=== PATIENT | female | born 1995 | race Hispanic/Latino ===

== ENCOUNTER 2018-04-23 14:00 | Inpatient (IN) | payer OTHER ==
[2018-04-23] MEDS ORDERED: BUTORPHANOL 1 MG/ML INJ IV PRN (16:30)
[2018-04-23] MEDS ORDERED: CARBOPROST TROME 250 MCG/ML IM PRN (16:30)
[2018-04-23] MEDS ORDERED: PROMETHAZINE 25 MG/ML VIAL IM PRN ×2 (16:30)
[2018-04-23] MEDS ORDERED: MEPERIDINE HCL 25 MG/0.5 ML IV PRN (16:30)
[2018-04-23] MEDS ORDERED: METHYLERGONOVINE 0.2MG/ML AMP IM PRN (16:30)
[2018-04-23] MEDS ORDERED: Ringers Lactate 1,000 ML IV PRN (16:30)
[2018-04-23 16:48] VITALS: BMI 38.7
[2018-04-23 16:51] LABS: RPR Titer ND
[2018-04-23 16:56] LABS: Absolute Lymphocytes (CBC) 1.4 K/uL (0.7-4.9); Absolute Monocytes 0.6 K/uL (0.1-1.3); Absolute Neutrophil 9.7 K/uL (1.8-8.0); Basophils % 0.6 % (0-1.3); Eosinophils % 0.9 % (0-4.4); Hematocrit 32.6 % (36.0-45.0); Lymphocytes % 11.6 % (15.3-44.8); MCH 26.1 pg (27.0-35.0); MCV 82.1 fL (80-100); MPV 9.6 fL (7.6-11.3); Monocytes % 5.4 % (3.3-12.3); RBC Red Blood Cell Count 3.97 M/uL (3.86-4.86)
[2018-04-23 17:00] LABS: Urine Appearance CLEAR; Urine Bilirubin NEGATIVE (NEG); Urine Blood 2+ (NEG); Urine Color YELLOW; Urine Glucose NEGATIVE (NEG); Urine Protein NEGATIVE (NEG); Urine Specific Gravity 1.015 (1.005-1.030); Urine Urobilinogen 0.2 mg/dL (0.2-1.0); Urine pH 6.5 (5.0-7.0)
[2018-04-23] MEDS ORDERED: OXYTOCIN/LR 20 UNIT/1,000 ML BAG IV SCH ×2 (17:00→20:00)
[2018-04-23] MEDS ORDERED: Ringers Lactate 1,000 ML IV SCH (17:00)
[2018-04-23 17:16] LABS: Urine Microscopic Reflex ORDER UMIC
[2018-04-23 17:36] LABS: Urine Amorphous Sediment 3+ /HPF (NONE SEEN); Urine Bacteria <20 /HPF (<20); Urine Culture Reflex Order NOT NEEDED; Urine RBC <5 /HPF (NONE SEEN)
[2018-04-23] MEDS ORDERED: LIDOCAINE 2% 20 ML MDV IV ONE (19:00)
[2018-04-23] MEDS ORDERED: MEPERIDINE HCL 50 MG/ML AMP ONE (19:28)
[2018-04-23] MEDS ORDERED: DIPHENHYDRAMINE 25 MG TAB/CAP PO PRN (19:34)
[2018-04-23] MEDS ORDERED: Oxycodone HCl/Acetaminophen 1 TAB TAB PO PRN ×2 (19:34)
[2018-04-23] MEDS ORDERED: DOCUSATE NA/SENNA CONC 1 TAB PO PRN (19:34)
[2018-04-23] MEDS ORDERED: ACETAMINOPHEN 500 MG TAB PO PRN (19:34)
[2018-04-23] MEDS ORDERED: BISACODYL 10 MG RECTAL SUPP RECT PRN (19:34)
--- NOTE | 2018-04-23 19:53 | OP ---
Surgeon: Kendell Weston MD This is a 22-year-old, 4, para 3, 38 weeks 2 days, came in active labor. Beta strep negative . Rh positive, immune to Rubella. Used Lamaze breathing techniques. Had IV Stadol 1 or 2 times dur ing her labor. Progressed rapidly to complete. Light meconium staining noted with rupture of membra corwin at approximately 4 to 5 cm. Spontaneous vaginal delivery of an estimated 7.5 to 8 pound female. Apgars 9 and 9. No episiotomy. No laceration. Placenta retained for more than 25 minutes and mode rate bleeding noted, therefore patient given 25 mg of Demerol, and manual was performed. Re-explorat ion after the placenta was inspected, no further tissue. Uterus contracted down well with IV drip Pi tocin and 0.2 mg of Methergine IM. 1 g of Ancef ordered for prophylaxis. The patient tolerated all procedures well. Final Diagnoses: Term intrauterine at 38 weeks 2 days, vaginal delivery, retained placenta . Manual removal. NIGHAT/OLEG Voice ID: [id number] Report ID: [id number]
--- NOTE | 2018-04-23 19:53 | PN ---
The patient is now 7 cm, 90% effaced, 0 station. Rahul regularly. Should progress fairly rapi dly. NIGHAT/OLEG Voice ID: [id number] Report ID: [id number]
[2018-04-23] MEDS ORDERED: CEFAZOLIN/SWI 1gm 1 GM/10 ML SYR ONE (20:11)
[2018-04-23] MEDS ORDERED: METHYLERGONOVINE 0.2MG/ML AMP IM ONE (22:11)
[2018-04-23 22:44] LABS: RPR (Rapid Plasma Reagin) NON-REACT (NON-REACT)
--- NOTE | 2018-04-23 23:20 | PREOPHP ---
Date of Admission: 04/23/2018 A 22-year-old 4, para 3, 38 weeks 2 days, scheduled for induction on Saturday comes in today in labor, is now 4-1/2 to 5 cm, 90% effaced, vertex, -1 station. Rupture of membranes, very slight mec onium. FHTs normal, reactive at this point. Rahul every 2-3 minutes. Full labor talk given. Anticipate rather rapid labor once she gets stronger contractions. She is on light Pitocin augmenta tion at this point. The patient is Rh positive, immune to Rubella. Negative beta strep screen. NBC/MODL Voice ID: [id number]
[2018-04-24] MEDS: IBUPROFEN 200 MG TAB PO PRN ×2 (04:10→12:15)
[2018-04-24 22:45] VITALS: BP 125/73; TEMP 97.6
--- NOTE | 2018-04-25 01:31 | DS ---
Date of Discharge: 04/24/2018 Hospital Course: Caitlin Max is a 22-year-old, 4, para 3, 38 weeks 2 days, came in active l abor. Subsequently delivered an 8-pound 9-ounce male , Apgars 9 and 9. Light meconium with ru pture of membranes. No suspicion of aspiration. No episiotomy. No lacerations. Mild uterine hyper tonus after the uterus explored and placenta removed as it was retained, and there was more than norm al bleeding. Therefore, placenta was removed after about 15 to 20 minutes post delivery. The patien t was given 1 g of Ancef for prophylaxis. Estimated blood loss was 400 to 450 cc. afebri le, ambulating and voiding. Lochia is completely normal. She will be dismissed either later today o r tomorrow morning to report back to my office in 6 weeks for followup. To report any temperature el evation of 100 degrees or greater, severe pain, heavy bleeding, or any other type of abnormalities. Dismissed with tramadol for analgesia. The patient is mostly bottle-feeding at this point. She may like to take Motrin instead. She has had her Tdap immunization. Final Diagnoses: Intrauterine gestation, 38 weeks 2 days, spontaneous labor, vaginal delivery, retai natalia placenta, mild uterine hypotonus. NIGHAT/OLEG Voice ID: [id number] Report ID: [id number]
[2018-04-27 20:55] LABS: HBsAG Nonreactive (Nonreactive)
== END 2018-04-24 21:35 | disposition home or self-care (01) | DRG 774 ==
LOC: L&D 14:00 → 2ND-WC 16:15
PROVIDERS: ADMIT Specialist; ATTEND Specialist
PROC: 10E0XZZ Delivery of Products of Conception, External Approach (ICD-10-PCS; principal; 2018-04-23)
DX: O62.4 Hypertonic, incoordinate, and prolonged uterine contractions (principal); O72.2 Delayed and secondary postpartum hemorrhage; O77.0 Labor and delivery complicated by meconium in amniotic fluid; Z3A.38 38 weeks gestation of pregnancy; Z37.0 Single live birth
CPT/HCPCS: 36415; 81003; 81015; 85025; 86592; 86901; 87340; J0595; J0690; J2175; J2210; J2590

== ENCOUNTER 2018-08-09 19:47 | Emergency (ER) | payer OTHER ==
--- OUTSIDE RECORDS SUMMARY | 2018-08-09 19:49 | XMS REPORT ---
:1995 [facility] Address [address] [place] [address] Dr. Hernandez [address] [place] [id number] Care Team Providers Name Role Phone Unavailable Unavailable Unavailable Problems This patient has no known problems. Allergies, Adverse Reactions, Alerts This patient has no known allergies or adverse reactions. Medications This patient has no known medications.
--- NOTE | 2018-08-09 20:45 | ER ---
Nurse's Notes [facility] Name: Caitlin Mcgovern Age: 23 yrs Sex: Female : 1995 Arrival Date: 08/09/2018 Time: 19:50 Bed 25 Private MD: Diagnosis: Streptococcal pharyngitis Presentation: 08/09 19:54 Presenting complaint: Patient states: headache, flu like symptoms since 0100. my dad yaneli was dx with a virus yesterday, he was seen here. generalized body aches. Transition of care: patient was not received from another setting of care. Onset of symptoms was August 09, 2018 at 01:00. Risk Assessment: Do you want to hurt yourself or someone else? Patient reports no desire to harm self or others. Initial Sepsis Screen: Does the patient meet any 2 criteria? No. Patient's initial sepsis screen is negative. Does the patient have a suspected source of infection? No. Patient's initial sepsis screen is negative. Care prior to arrival: Medication(s) given: dayquill. 19:54 Method Of Arrival: Ambulatory 19:54 Acuity: PRERNA 4 Triage Assessment: 19:55 Headache History: The patient has had previous headaches and this one is similar to previous episodes. General: Appears in no apparent distress. comfortable, Behavior is calm, cooperative, appropriate for age. Pain: Complains of pain in head, neck, chest, abdomen, pelvis, right arm, left arm, right leg, left leg, back of head, back of neck, back of left arm, back of right arm, posterior chest, buttocks, back of left leg, back of right leg and back Pain currently is 8 out of 10 on a pain scale. Pain began 1 day ago. Also complains of no other associated symptoms. Neuro: No deficits noted. 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 - Social history:: Smoking status: Patient/guardian denies using tobacco, Patient/guardian denies using alcohol, street drugs. - Ebola Screening: : Patient negative for fever greater than or equal to 101.5 degrees Fahrenheit, and additional compatible Ebola Virus Disease symptoms Patient denies exposure to infectious person Patient denies travel to an Ebola-affected area in the 21 days before illness onset No symptoms or risks identified at this time. - Family history:: not pertinent. - Hospitalizations: : No recent hospitalization is reported. Screenin:05 Abuse screen: Denies threats or abuse. Nutritional screening: No deficits noted. bb Tuberculosis screening: No symptoms or risk factors identified. Fall Risk None identified. Assessment: 20:05 General: Appears in no apparent distress. well groomed, Behavior is calm, cooperative. bb Pain: Complains of pain in chest. Neuro: Level of Consciousness is awake, alert, obeys commands, Oriented to person, place, time, situation. Cardiovascular: Heart tones S1 S2 present Capillary refill < 3 seconds Patient's skin is warm and dry. Respiratory: Reports pain with respiration Respiratory effort is even, unlabored, Respiratory pattern is regular, Breath sounds are clear bilaterally. GI: No deficits noted. No signs and/or symptoms were reported involving the gastrointestinal system. Derm: Skin is pink, warm \T\ dry. Musculoskeletal: Circulation, motion, and sensation intact. Vital Signs: 19:55 BP 118 / 70; Pulse 66; Resp 14; Temp 97.8; Pulse Ox 100% ; Weight 84.37 kg; Height 4 ch ft. 11 in. (149.86 cm); Pain 8/10; 21:01 BP 113 / 76; Pulse 81; Resp 16; Pulse Ox 98% on R/A; la1 19:55 Body Mass Index 37.57 (84.37 kg, 149.86 cm) ED Course: 19:50 Patient arrived in ED. es 19:55 Triage completed. 19:55 Arm band placed on right wrist. Patient placed in an exam room, on a stretcher. 19:57 Donnell Garcia, MEENU is Primary Nurse. la1 19:57 Zaki Connolly MD is Attending Physician. rn 20:05 Patient has correct armband on for positive identification. Bed in low position. Call bb light in reach. Adult w/ patient. Pulse ox on. NIBP on. 21:01 No provider procedures requiring assistance completed. Patient did not have IV access la1 during this emergency room visit. Administered Medications: No medications were administered Outcome: 20:45 Discharge ordered by . rn 21:01 Discharged to home ambulatory. la1 21:01 Condition: stable 21:01 Discharge instructions given to patient, Instructed on discharge instructions, follow up and referral plans. medication usage, Demonstrated understanding of instructions, follow-up care, medications, Prescriptions given X 1. 21:02 Patient left the ED. la1 Signatures: Carlota Huffman RN RN Lisa Leyva Brenda RN RN Zaki Cruz MD MD rn Attema, Lee, RN RN laJones
--- NOTE | 2018-08-09 20:46 | EDPHYS ---
Physician Documentation [facility] Name: Caitlin Mcgovern Age: 23 yrs Sex: Female : 1995 Arrival Date: 08/09/2018 Time: 19:50 Bed 25 Private MD: ED Physician Zaki Connolly HPI: 08/09 20:10 This 23 yrs old Female presents to ER via Ambulatory with complaints of cough, rn congestion, muscle aches. 20:19 The patient or guardian reports cough, flu symptoms, low-grade fever, myalgias. Onset: rn The symptoms/episode began/occurred 2 hour(s) ago. Severity of symptoms: At their worst the symptoms were mild, in the emergency department the symptoms are unchanged. Modifying factors: The symptoms are alleviated by nothing, the symptoms are aggravated by nothing. The patient has not experienced similar symptoms in the past. The patient has not recently seen a physician. Reports several family members with similar symptoms, + subjective fever, chills, cough, congestion, reports has "bronchitis" about once a year. NO hx of asthma, non-smoker. . 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 - Social history:: Smoking status: Patient/guardian denies using tobacco, Patient/guardian denies using alcohol, street drugs. - Ebola Screening: : Patient negative for fever greater than or equal to 101.5 degrees Fahrenheit, and additional compatible Ebola Virus Disease symptoms Patient denies exposure to infectious person Patient denies travel to an Ebola-affected area in the 21 days before illness onset No symptoms or risks identified at this time. - Family history:: not pertinent. - Hospitalizations: : No recent hospitalization is reported. ROS: 20:19 Constitutional: + fever and chills Eyes: Negative for injury, pain, redness, and sample patternmaker, ENT: + nasal congestion and sore throat Cardiovascular: Negative for chest pain, palpitations, and edema, Respiratory: + cough, negative for sob Abdomen/GI: Negative for abdominal pain, nausea, vomiting, diarrhea, and constipation, MS/Extremity: Negative for injury and deformity, Skin: Negative for injury, rash, and discoloration, Neuro: + headache, no weakness Exam: 20:19 Constitutional: This is a well developed, well nourished patient who is awake, alert, rn and in no acute distress. Head/Face: Normocephalic, atraumatic. Eyes: Pupils equal round and reactive to light, extra-ocular motions intact. Lids and lashes normal. Conjunctiva and sclera are non-icteric and not injected. Cornea within normal limits. Periorbital areas with no swelling, redness, or edema. ENT: mild pharyngeal erythema, no stridor, no exudate, no lesions Cardiovascular: Regular rate and rhythm with a normal S1 and S2. No gallops, murmurs, or rubs. No pulse deficits. Respiratory: Equal bilateral breath sounds, no wheezing, no retractions, speaking full sentences Skin: Warm, dry with normal turgor. Normal color with no rashes, no lesions, and no evidence of cellulitis. MS/ Extremity: Pulses equal, no cyanosis. Neurovascular intact. Full, normal range of motion. Equal circumference. Neuro: Awake and alert, GCS 15, oriented to person, place, time, and situation. Cranial nerves II-XII grossly intact. Motor strength 5/5 in all extremities. Sensory grossly intact. Cerebellar exam normal. Normal gait. Vital Signs: 19:55 BP 118 / 70; Pulse 66; Resp 14; Temp 97.8; Pulse Ox 100% ; Weight 84.37 kg; Height 4 ch ft. 11 in. (149.86 cm); Pain 8/10; 21:01 BP 113 / 76; Pulse 81; Resp 16; Pulse Ox 98% on R/A; la1 19:55 Body Mass Index 37.57 (84.37 kg, 149.86 cm) ch MDM: 19:57 Patient medically screened. rn 20:44 Differential Diagnosis: Influenza Upper Respiratory Infection Pharyngitis Viral rn Syndrome. Data reviewed: vital signs, nurses notes, lab test result(s), and as a result, I will discharge patient. Counseling: I had a detailed discussion with the patient and/or guardian regarding: the historical points, exam findings, and any diagnostic results supporting the discharge/admit diagnosis, lab results, the need for outpatient follow up, to return to the emergency department if symptoms worsen or persist or if there are any questions or concerns that arise at home. Special discussion: I discussed with the patient/guardian in detail that at this point there is no indication for admission to the hospital. It is understood, however, that if the symptoms persist or worsen the patient needs to return immediately for re-evaluation. 20:45 ED course: Pt states allergic to penicillin. Zithromax prescribed due to unknown rn severity f allergy. . 08/09 20:06 Order name: Flu; Complete Time: 20:42 ch 08/09 20:06 Order name: Strep; Complete Time: 20:36 Administered Medications: No medications were administered Disposition: 08/09/18 20:45 Discharged to Home. Impression: Streptococcal pharyngitis. - Condition is Stable. - Discharge Instructions: Pharyngitis, Strep Throat. - Prescriptions for Zithromax Z- Nahum 250 mg Oral Tablet - take 1 tablet by ORAL route as directed for 5 days Day 1 - take two (2) tablets one time. Day 2, 3, 4 , 5 take one (1) tablet once daily.; 6 tablet. - Medication Reconciliation Form, Thank You Letter, Antibiotic Education, Prescription Opioid Use form. - Follow up: Private Physician; When: As needed; Reason: Recheck today's complaints, Re-evaluation by your physician. - Problem is new. - Symptoms have improved. Signatures: Dispatcher [employer] EDMS Carlota Huffman RN RN Zaki Connolly MD MD rn Attema, Lee, RN RN la1 Corrections: (The following items were deleted from the chart) 21:02 20:45 08/09/2018 20:45 Discharged to Home. Impression: Streptococcal pharyngitis. la1 Condition is Stable. Forms are Medication Reconciliation Form, Thank You Letter, Antibiotic Education, Prescription Opioid Use. Follow up: Private Physician; When: As needed; Reason: Recheck today's complaints, Re-evaluation by your physician. Problem is new. Symptoms have improved. rn
[2018-08-09 21:16] VITALS: TEMP 97.8
[2018-08-09 21:18] VITALS: BP 113/76; O2SAT 98
== END 2018-08-09 21:02 | disposition home or self-care (01) ==
LOC: ER 19:47
DX: J02.0 Streptococcal pharyngitis (principal); Z88.0 Allergy status to penicillin
CPT/HCPCS: 87081; 87804; 99283

== ENCOUNTER 2018-09-25 21:12 | Emergency (ER) | payer OTHER ==
--- OUTSIDE RECORDS SUMMARY | 2018-09-25 21:14 | XMS REPORT ---
:1995 [facility] Address [address] [place] [address] Dr. Hernandez [address] [place] [id number] Care Team Providers Name Role Phone Unavailable Unavailable Unavailable Problems This patient has no known problems. Allergies, Adverse Reactions, Alerts This patient has no known allergies or adverse reactions. Medications This patient has no known medications.
[2018-09-25] MEDS ORDERED: IBUPROFEN 400 MG TAB ONE (22:53)
[2018-09-25] MEDS ORDERED: ACETAMINOPHEN 500 MG TAB ONE (22:54)
[2018-09-25 23:47] LABS: Urine Blood TRACE (NEG); Urine Glucose NEGATIVE (NEG); Urine Protein NEGATIVE (NEG); Urine Specific Gravity >1.030 (1.005-1.030); Urine pH 6.5 (5.0-7.0)
--- NOTE | 2018-09-26 00:26 | ER ---
Nurse's Notes [facility] Name: Caitlin Mcgovern Age: 23 yrs Sex: Female : 1995 Arrival Date: 09/25/2018 Time: 21:19 Bed 15 Private MD: Diagnosis: Viral syndrome Presentation: 09/25 21:36 Presenting complaint: Patient states: "Its been a few days that I've been feeling body aj1 aches all over, then I noticed I was starting to get hot and I have a headache that comes and goes and when I take a breath it feels like my chest hurts" Patient reports that she took Tylenol at 1330 today. Transition of care: patient was not received from another setting of care. Onset of symptoms was August 2018. Risk Assessment: Do you want to hurt yourself or someone else? Patient reports no desire to harm self or others. Initial Sepsis Screen: Does the patient meet any 2 criteria?. Initial Sepsis Screen: Does the patient have a suspected source of infection? Yes: Productive cough/pneumonia. Care prior to arrival: None. 21:36 Method Of Arrival: Ambulatory [facility] 21:36 Acuity: PRERNA 4 aj1 Triage Assessment: 21:38 Headache History: Denies prior headaches. General: Appears in no apparent distress. aj1 comfortable, Behavior is calm, cooperative, appropriate for age. Pain: Pain currently is 6 out of 10 on a pain scale. Pain began 2-3 days ago. Also complains of fatigue. Neuro: Level of Consciousness is awake, alert, obeys commands. Cardiovascular: Patient's skin is warm and dry. Respiratory: Airway is patent Respiratory effort is even, unlabored, Respiratory pattern is regular, symmetrical. 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 - Social history:: Smoking status: Patient/guardian denies using tobacco. - Ebola Screening: : Patient denies travel to an Ebola-affected area in the 21 days before illness onset. - Family history:: not pertinent. - Hospitalizations: : No recent hospitalization is reported. Screenin:51 Abuse screen: Denies threats or abuse. Denies injuries from another. Nutritional cc3 screening: No deficits noted. Tuberculosis screening: No symptoms or risk factors identified. Fall Risk Ambulatory Aid- None/Bed Rest/Nurse Assist (0 pts). Gait- Normal/Bed Rest/Wheelchair (0 pts) Mental Status- Oriented to own ability (0 pts). Assessment: 21:51 General: see triage assessment. cc3 22:18 Reassessment: Patient appears in no apparent distress at this time. Patient and/or cc3 family updated on plan of care and expected duration. Pain level reassessed. Patient is alert, oriented x 3, equal unlabored respirations, skin warm/dry/pink. 23:20 Reassessment: Patient appears in no apparent distress at this time. Patient and/or cc3 family updated on plan of care and expected duration. Pain level reassessed. Patient is alert, oriented x 3, equal unlabored respirations, skin warm/dry/pink. 09/26 00:45 Reassessment: Patient appears in no apparent distress at this time. Patient and/or cc3 family updated on plan of care and expected duration. Pain level reassessed. Patient is alert, oriented x 3, equal unlabored respirations, skin warm/dry/pink. Dr. Zhang discharged the patient home with prescription given. No IV cannula in situ. Patient left ER vitally stable and ambulatory with her family. Vital Signs: 09/25 21:38 BP 130 / 57; Pulse 84; Resp 18; Temp 100(O); Pulse Ox 99% on R/A; Weight 78.93 kg (R); aj1 Height 4 ft. 11 in. (149.86 cm) (R); Pain 6/10; 22:18 BP 112 / 67; Pulse 78; Resp 17 S; Pulse Ox 100% on R/A; cc3 23:20 BP 109 / 70; Pulse 76; Resp 17 S; Temp 98.2(O); Pulse Ox 100% on R/A; cc3 09/26 00:20 BP 113 / 63; Pulse 77; Resp 17 S; Pulse Ox 100% on R/A; cc3 09/25 21:38 Body Mass Index 35.14 (78.93 kg, 149.86 cm) [facility] ED Course: 09/25 21:19 Patient arrived in ED. es 21:38 Triage completed. aj1 21:38 Arm band placed on Patient placed in an exam room. aj1 21:51 Samreen Koch is Primary Nurse. cc3 21:51 Patient has correct armband on for positive identification. Bed in low position. Call cc3 light in reach. Side rails up X 1. Pulse ox on. NIBP on. 21:54 Shreyas Zhang MD is Attending Physician. nj 22:51 Chest Pa And Lat (2 Views) XRAY In Process Unspecified. EDMS 09/26 00:45 No provider procedures requiring assistance completed. Patient did not have IV access cc3 during this emergency room visit. Administered Medications: 09/25 22:55 Drug: Tylenol 1000 mg Route: PO; cc3 23:20 Follow up: Response: No adverse reaction; Temperature is decreased cc3 22:55 Drug: Motrin 400 mg Route: PO; cc3 23:20 Follow up: Response: No adverse reaction; Temperature is decreased cc3 Outcome: 09/26 00:25 Discharge ordered by . nj 00:45 Discharged to home ambulatory, with family. cc3 00:45 Condition: stable 00:45 Discharge instructions given to patient, Instructed on discharge instructions, follow up and referral plans. medication usage, Demonstrated understanding of instructions, follow-up care, medications, Prescriptions given X 1. 00:48 Patient left the ED. cc3 Signatures: Dispatcher [employer] EDWY Aleah Duval, RN RN aj1 Lisa Monte Shreyas Zhang MD MD wa Cordel, Charlene cc3 Corrections: (The following items were deleted from the chart) 09/25 23:43 23:20 BP 109 / 70; Pulse 76bpm; Resp 17bpm; Spontaneous; Pulse Ox 100% RA; cc3 cc3
--- NOTE | 2018-09-26 00:27 | EDPHYS ---
Physician Documentation [facility] Name: Caitlin Mcgovern Age: 23 yrs Sex: Female : 1995 Arrival Date: 09/25/2018 Time: 21:19 Bed 15 Private MD: ED Physician Shreyas Zhang HPI: 09/25 23:05 This 23 yrs old Female presents to ER via Ambulatory with complaints of wa Headache, Body ache, Chest Pain. 23:05 The patient complains of pain to the diffuse. The patient describes the headache as wa aching. Onset: The symptoms/episode began/occurred 3 day(s) ago. Associated signs and symptoms: Pertinent positives: fever, sore throat. body aches. cough and congestion, Pertinent negatives: dizziness, neck stiffness, vomiting. Severity of symptoms: At its worst the pain was moderate, in the emergency department the pain is unchanged. Headache History: Denies prior headaches. The symptoms are alleviated by nothing. the symptoms are aggravated by nothing. The patient has not experienced similar symptoms in the past. The patient has not recently seen a physician. 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 - Social history:: Smoking status: Patient/guardian denies using tobacco. - Ebola Screening: : Patient denies travel to an Ebola-affected area in the 21 days before illness onset. - Family history:: not pertinent. - Hospitalizations: : No recent hospitalization is reported. ROS: 23:07 Eyes: Negative for injury, pain, redness, and discharge, Neck: Negative for injury, wa pain, and swelling, Abdomen/GI: Negative for abdominal pain, nausea, vomiting, diarrhea, and constipation, Back: Negative for injury and pain, : Negative for injury, bleeding, discharge, and swelling, MS/Extremity: Negative for injury and deformity, Skin: Negative for injury, rash, and discoloration, Psych: Negative for depression, anxiety, suicide ideation, homicidal ideation, and hallucinations. 23:07 ENT: Positive for sinus congestion, sore throat, Negative for ear pain. 23:07 Cardiovascular: Positive for chest pain. 23:07 Respiratory: Positive for cough, with no reported sputum. 23:07 Neuro: Positive for headache. 23:07 All other systems are negative. Exam: 23:08 Head/Face: Normocephalic, atraumatic. Eyes: Pupils equal round and reactive to light, wa extra-ocular motions intact. Lids and lashes normal. Conjunctiva and sclera are non-icteric and not injected. Cornea within normal limits. Periorbital areas with no swelling, redness, or edema. Neck: Trachea midline, no thyromegaly or masses palpated, and no cervical lymphadenopathy. Supple, full range of motion without nuchal rigidity, or vertebral point tenderness. No Meningismus. Chest/axilla: Normal chest wall appearance and motion. Nontender with no deformity. No lesions are appreciated. Abdomen/GI: Soft, non-tender, with normal bowel sounds. No distension or tympany. No guarding or rebound. No evidence of tenderness throughout. Back: No spinal tenderness. No costovertebral tenderness. Full range of motion. Skin: Warm, dry with normal turgor. Normal color with no rashes, no lesions, and no evidence of cellulitis. MS/ Extremity: Pulses equal, no cyanosis. Neurovascular intact. Full, normal range of motion. 23:08 Constitutional: The patient appears in no acute distress, alert. 23:08 Cardiovascular: Rate: normal, Rhythm: regular, Pulses: no pulse deficits are appreciated, Heart sounds: normal, Edema: is not appreciated. 23:08 Respiratory: the patient does not display signs of respiratory distress, Respirations: normal, Breath sounds: are clear throughout, Respiratory rate: normal 23:08 Neuro: Orientation: is normal, Mentation: is normal, Cranial nerves: grossly normal. Vital Signs: 21:38 BP 130 / 57; Pulse 84; Resp 18; Temp 100(O); Pulse Ox 99% on R/A; Weight 78.93 kg (R); aj1 Height 4 ft. 11 in. (149.86 cm) (R); Pain 6/10; 22:18 BP 112 / 67; Pulse 78; Resp 17 S; Pulse Ox 100% on R/A; cc3 23:20 BP 109 / 70; Pulse 76; Resp 17 S; Temp 98.2(O); Pulse Ox 100% on R/A; cc3 09/26 00:20 BP 113 / 63; Pulse 77; Resp 17 S; Pulse Ox 100% on R/A; cc3 09/25 21:38 Body Mass Index 35.14 (78.93 kg, 149.86 cm) aj1 MDM: 09/25 21:54 Patient medically screened. nc 23:09 Differential diagnosis: viral syndrome? r/o pna. nc 09/26 00:22 Data reviewed: vital signs, nurses notes, lab test result(s), EKG, radiologic studies. nc Test interpretation: by ED physician or midlevel provider: EKG: HR 72. interp by me. nml axis. no dysrhythmic changes. 00:23 Test interpretation: by ED physician or midlevel provider: flu and strep screen nc negative. UA normal. Response to treatment: the patient's symptoms have markedly improved after treatment. 09/25 22:36 Order name: Flu; Complete Time: 00:21 nc 09/25 22:36 Order name: Strep; Complete Time: 00:21 nc 09/25 23:14 Order name: Urine Microscopic Only nc 09/25 23:42 Order name: Urine Dipstick--Ancillary (enter results); Complete [facility]: [facility] 09/25 23:42 Order name: Urine --Ancillary (enter results); Complete Time: 00:21 [facility] 09/26 00:12 Order name: Throat Culture [facility] 09/25 22:36 Order name: Chest Pa And Lat (2 Views) XRAY nc 09/25 22:41 Order name: EKG - Nurse/Tech; Complete Time: 23:14 nc 09/25 23:14 Order name: Urine Dipstick-Ancillary (obtain specimen); Complete Time: 23:42 nc 09/25 23:14 Order name: Urine Test (obtain specimen); Complete Time: 23:42 nc Administered Medications: 09/25 22:55 Drug: Tylenol 1000 mg Route: PO; cc3 23:20 Follow up: Response: No adverse reaction; Temperature is decreased cc3 22:55 Drug: Motrin 400 mg Route: PO; cc3 23:20 Follow up: Response: No adverse reaction; Temperature is decreased cc3 Disposition: 09/26/18 00:25 Discharged to Home. Impression: Viral syndrome. - Condition is Stable. - Discharge Instructions: Viral Respiratory Infection, [id number]. - Prescriptions for Albuterol Sulfate 90 mcg/actuation - inhale 1-2 puff by INHALATION route every 4-6 hours; 1 Inhaler. - Medication Reconciliation Form, Thank You Letter, Antibiotic Education, Prescription Opioid Use form. - Follow up: Private Physician; When: 2 - 3 days; Reason: Recheck today's complaints. - Problem is new. - Symptoms have improved. - Notes: take tylenol and motrin as needed for pain and or fever. you may use inhaler as needed for cough Signatures: Dispatcher [employer] EDMS Aleah Duval RN RN aj1 Shreyas Zhang MD MD wa Cordel, Charlene cc3 Corrections: (The following items were deleted from the chart) 23:15 23:15 Urine Dipstick-Ancillary ordered. cc3 cc3 09/26 00:48 00:25 09/26/2018 00:25 Discharged to Home. Impression: Viral syndrome. Condition is cc3 Stable. Forms are Medication Reconciliation Form, Thank You Letter, Antibiotic Education, Prescription Opioid Use. Follow up: Private Physician; When: 2 - 3 days; Reason: Recheck today's complaints. Problem is new. Symptoms have improved. eloisa
[2018-09-26 00:46] LABS: Urine Bacteria <20 /HPF (<20); Urine RBC NONE SEEN /HPF (NONE SEEN)
[2018-09-26 00:47] LABS: Urine Culture Reflex Order NOT NEEDED
[2018-09-26 00:59] VITALS: O2SAT 100
[2018-09-26 01:00] VITALS: BP 109/70; TEMP 98.2
--- NOTE | 2018-09-26 07:48 | RAD REPORT ---
EXAM DESCRIPTION: RAD - Chest Pa And Lat (2 Views) - 09/25/2018 10:51 pm CLINICAL HISTORY: Chest pain, fever, body aches COMPARISON: None. TECHNIQUE: PA and lateral views of the chest were obtained. FINDINGS: The lungs are clear. Heart size is normal and central vasculature is within normal limit s. No pleural effusion or pneumothorax seen. No acute bony finding noted. No aortic abnormality. IMPRESSION: No acute cardiopulmonary process.
--- NOTE | 2018-09-26 22:30 | EKG ---
Test Date: 2018-09-25 Test Time: 23:04:06 Foundation Drill Operator Helper: [place] MEASUREMENT RESULTS: Intervals: Rate: 68 DC: 132 QRSD: 82 QT: 400 QTc: 425 [place]: P: 26 DC: 132 QRS: 61 T: 38 INTERPRETIVE STATEMENTS: Normal sinus rhythm Normal ECG No previous ECG available for comparison Electronically Signed On 09-26-18 22:28:13 OIL LEASE OPERATOR by Perry England
== END 2018-09-26 00:48 | disposition home or self-care (01) ==
LOC: ER 21:12
DX: B34.9 Viral infection, unspecified (principal); Z88.0 Allergy status to penicillin
CPT/HCPCS: 71046; 81003; 81015; 81025; 87070; 87081; 87804; 93005; 99284

== ENCOUNTER 2018-10-23 18:52 | Emergency (ER) | payer OTHER ==
--- OUTSIDE RECORDS SUMMARY | 2018-10-23 18:55 | XMS REPORT ---
:1995 [facility] [address] [place] [address] Dr. Hernandez [address] [place] [id number] Care Team Providers Name Role Phone Unavailable Unavailable Unavailable Problems This patient has no known problems. Allergies, Adverse Reactions, Alerts This patient has no known allergies or adverse reactions. Medications This patient has no known medications.
[2018-10-23] MEDS ORDERED: KETOROLAC 30 MG/ML INJ ONE (21:10)
[2018-10-23] MEDS ORDERED: DIPHENHYDRAMINE 50 MG/ML VIAL ONE (21:10)
[2018-10-23] MEDS ORDERED: METOCLOPRAMIDE 10 MG/2mL INJ ONE (21:10)
--- NOTE | 2018-10-23 21:35 | EDPHYS ---
Physician Documentation [facility] Name: Caitlin Mcgovern Age: 23 yrs Sex: Female : 1995 Arrival Date: 10/23/2018 Time: 18:55 Bed 23 Private MD: ED Physician Car Kaur HPI: 10/23 21:30 This 23 yrs old Female presents to ER via Ambulatory with complaints of gs Headache. 21:31 The patient complains of pain to the left mandaeism. The patient describes the headache as gs throbbing. Onset: The symptoms/episode began/occurred 3 day(s) ago, and became persistent. Associated signs and symptoms: Pertinent positives: nausea. Severity of symptoms: At its worst the pain was moderate, in the emergency department the pain is unchanged. Headache History: The patient has had previous headaches and this one is similar to previous episodes, and this one is more severe than previous episodes. The symptoms are alleviated by nothing. the symptoms are aggravated by nothing. The patient has experienced similar episodes in the past, several times. The patient has not recently seen a physician. 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 - Social history:: Smoking status: Patient/guardian denies using tobacco. - Ebola Screening: : No symptoms or risks identified at this time. ROS: 21:31 Cardiovascular: gs 21:31 All other systems are negative. Exam: 21:31 Head/Face: Normocephalic, atraumatic. Eyes: Pupils equal round and reactive to light, gs extra-ocular motions intact. Lids and lashes normal. Conjunctiva and sclera are non-icteric and not injected. Cornea within normal limits. Periorbital areas with no swelling, redness, or edema. ENT: Nares patent. No nasal discharge, no septal abnormalities noted. Tympanic membranes are normal and external auditory canals are clear. Oropharynx with no redness, swelling, or masses, exudates, or evidence of obstruction, uvula midline. Mucous membranes moist. Neck: Trachea midline, no thyromegaly or masses palpated, and no cervical lymphadenopathy. Supple, full range of motion without nuchal rigidity, or vertebral point tenderness. No Meningismus. Chest/axilla: Normal chest wall appearance and motion. Nontender with no deformity. No lesions are appreciated. Cardiovascular: Regular rate and rhythm with a normal S1 and S2. No gallops, murmurs, or rubs. Normal PMI, no JVD. No pulse deficits. Respiratory: Lungs have equal breath sounds bilaterally, clear to auscultation and percussion. No rales, rhonchi or wheezes noted. No increased work of breathing, no retractions or nasal flaring. Abdomen/GI: Soft, non-tender, with normal bowel sounds. No distension or tympany. No guarding or rebound. No evidence of tenderness throughout. Back: No spinal tenderness. No costovertebral tenderness. Full range of motion. Skin: Warm, dry with normal turgor. Normal color with no rashes, no lesions, and no evidence of cellulitis. MS/ Extremity: Pulses equal, no cyanosis. Neurovascular intact. Full, normal range of motion. Neuro: Awake and alert, GCS 15, oriented to person, place, time, and situation. Cranial nerves II-XII grossly intact. Motor strength 5/5 in all extremities. Sensory grossly intact. Cerebellar exam normal. Normal gait. 21:31 Constitutional: The patient appears alert, awake. 21:31 Constitutional: The patient appears uncomfortable. Vital Signs: 19:02 BP 119 / 71; Pulse 78; Resp 16; Temp 97.4; Pulse Ox 98% on R/A; Pain 8/10; hb 20:00 BP 101 / 68; Pulse 68; Resp 19; Pulse Ox 99% on R/A; ca1 21:00 BP 128 / 90; Pulse 68; Resp 19; Pulse Ox 100% on R/A; ca1 21:36 BP 112 / 72; Pulse 65; Resp 19; Pulse Ox 99% on R/A; ca1 MDM: 20:26 Patient medically screened. 21:31 Differential diagnosis: migraine, tension headache, vasomotor headache. Data reviewed: vital signs, nurses notes. Response to treatment: the patient's symptoms have resolved after treatment, and as a result, I will discharge patient. 10/23 19:07 Order name: EKG; Complete Time: 19:07 ca1 10/23 19:07 Order name: EKG - Nurse/Tech; Complete Time: 19:07 ca1 Administered Medications: 20:50 Drug: Reglan 5 mg Route: IVP; Site: right forearm; ca1 21:36 Follow up: Response: No adverse reaction; Nausea is decreased ca1 20:55 Drug: Benadryl 12.5 mg Route: IVP; Site: right forearm; ca1 21:36 Follow up: Response: No adverse reaction; Pain is decreased ca1 21:00 Drug: TORadol 15 mg Route: IVP; Site: right forearm; ca1 21:36 Follow up: Response: No adverse reaction; Pain is decreased ca1 Disposition: 10/23/18 21:34 Discharged to Home. Impression: Headache. - Condition is Stable. - Discharge Instructions: General Headache Without Cause, Migraine Headache. - Medication Reconciliation Form, Thank You Letter, Antibiotic Education, Prescription Opioid Use form. - Follow up: Private Physician; When: 2 - 3 days; Reason: Re-evaluation by your physician. Signatures: Xenia Ribeiro RN RN Car Kaur MD MD Desi Henriquez RN RN ca1 Corrections: (The following items were deleted from the chart) 21:44 21:34 10/23/2018 21:34 Discharged to Home. Impression: Headache. Condition is Stable. ca1 Forms are Medication Reconciliation Form, Thank You Letter, Antibiotic Education, Prescription Opioid Use. Follow up: Private Physician; When: 2 - 3 days; Reason: Re-evaluation by your physician.
--- NOTE | 2018-10-23 21:35 | ER ---
Nurse's Notes [facility] Name: Caitlin Mcgovern Age: 23 yrs Sex: Female : 1995 Arrival Date: 10/23/2018 Time: 18:55 Bed 23 Private MD: Diagnosis: Headache Presentation: 10/23 19:00 Presenting complaint: Migraine + photosensitivity x 5 days, left sided chest pain 4 hb days. Denies fever/N/V/cough. Transition of care: patient was not received from another setting of care. Onset of symptoms was October 18, 2018. Risk Assessment: Do you want to hurt yourself or someone else? Patient reports no desire to harm self or others. Care prior to arrival: Medication(s) given: Motrin, at 1500. 19:00 Method Of Arrival: Ambulatory hb 19:00 Acuity: PRERNA 3 hb 19:05 Initial Sepsis Screen: Does the patient meet any 2 criteria? No. Patient's initial ca1 sepsis screen is negative. Does the patient have a suspected source of infection? No. Patient's initial sepsis screen is negative. Triage Assessment: 21:37 Pain: Also complains of. 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 - Social history:: Smoking status: Patient/guardian denies using tobacco. - Ebola Screening: : No symptoms or risks identified at this time. Screenin:05 Abuse screen: Denies threats or abuse. Denies injuries from another. Nutritional ca1 screening: No deficits noted. Tuberculosis screening: No symptoms or risk factors identified. Fall Risk None identified. Assessment: 19:05 General: Appears in no apparent distress. comfortable, Behavior is calm, cooperative, ca1 appropriate for age. Pain: Complains of pain in chest Pain does not radiate. Pain currently is 7 out of 10 on a pain scale. Quality of pain is described as heavy, Pain began Saturday night, 6 nights ago Is continuous. Neuro: Level of Consciousness is awake, alert, obeys commands, Oriented to person, place, time, situation, Reports headache since 6 days ago. Described as migraine with sensitivity to light. Neuro: Cardiovascular: Heart tones S1 S2 present Capillary refill < 3 seconds Patient's skin is warm and dry. Respiratory: Airway is patent Respiratory effort is even, unlabored, Respiratory pattern is regular, symmetrical, Breath sounds are clear bilaterally. GI: Abdomen is round non-distended, Bowel sounds present X 4 quads. Abd is soft and non tender X 4 quads. : No deficits noted. No signs and/or symptoms were reported regarding the genitourinary system. EENT: No deficits noted. No signs and/or symptoms were reported regarding the EENT system. Derm: Skin is intact, is healthy with good turgor, Skin is pink, warm \T\ dry. Musculoskeletal: Circulation, motion, and sensation intact. Capillary refill < 3 seconds, Range of motion: intact in all extremities. 20:05 Reassessment: Patient appears in no apparent distress at this time. Patient and/or ca1 family updated on plan of care and expected duration. Pain level reassessed. Patient is alert, oriented x 3, equal unlabored respirations, skin warm/dry/pink. 21:00 Reassessment: Patient appears in no apparent distress at this time. Patient is alert, ca1 oriented x 3, equal unlabored respirations, skin warm/dry/pink. Vital Signs: 19:02 BP 119 / 71; Pulse 78; Resp 16; Temp 97.4; Pulse Ox 98% on R/A; Pain 8/10; hb 20:00 BP 101 / 68; Pulse 68; Resp 19; Pulse Ox 99% on R/A; ca1 21:00 BP 128 / 90; Pulse 68; Resp 19; Pulse Ox 100% on R/A; ca1 21:36 BP 112 / 72; Pulse 65; Resp 19; Pulse Ox 99% on R/A; ca1 ED Course: 18:55 Patient arrived in ED. ss4 19:02 Triage completed. hb 19:02 Arm band placed on. hb 19:03 Desi Henriquez, MEENU is Primary Nurse. ca1 19:05 Patient has correct armband on for positive identification. Placed in gown. Bed in low ca1 position. Call light in reach. Side rails up X 1. desk monitor on. Pulse ox on. NIBP on. Warm blanket given. 19:10 Car Kaur MD is Attending Physician. gs 20:50 Inserted saline lock: 20 gauge in right forearm, using aseptic technique. ,using ca1 aseptic technique. by Vanda Torres, Professional [employer] student. Patient maintains SpO2 saturation greater than 95% on room air. 20:50 No provider procedures requiring assistance completed. ca1 21:43 IV discontinued, intact, bleeding controlled, No redness/swelling at site. Pressure ca1 dressing applied. Administered Medications: 20:50 Drug: Reglan 5 mg Route: IVP; Site: right forearm; ca1 21:36 Follow up: Response: No adverse reaction; Nausea is decreased ca1 20:55 Drug: Benadryl 12.5 mg Route: IVP; Site: right forearm; ca1 21:36 Follow up: Response: No adverse reaction; Pain is decreased ca1 21:00 Drug: TORadol 15 mg Route: IVP; Site: right forearm; ca1 21:36 Follow up: Response: No adverse reaction; Pain is decreased ca1 Outcome: 21:34 Discharge ordered by MD. 21:43 Discharged to home ambulatory, with significant other. ca1 21:43 Condition: stable 21:43 Discharge instructions given to patient, Instructed on discharge instructions, follow up and referral plans. Demonstrated understanding of instructions, follow-up care. 21:44 Patient left the ED. ca1 Signatures: Xenia Ribeiro RN RN Car Tripp MD MD Desi Henriquez RN RN ca1 Smith, Stephanie ss4 Corrections: (The following items were deleted from the chart) 21:21 20:50 Inserted saline lock: 20 gauge in right forearm, using aseptic technique. ca1 ca1
[2018-10-23 22:11] VITALS: TEMP 97.4
[2018-10-23 22:14] VITALS: BP 112/72; O2SAT 99
--- NOTE | 2018-10-24 12:51 | EKG ---
Test Date: 2018-10-23 Test Time: 19:11:00 Business Process Engineer: HARSHIL MEASUREMENT RESULTS: Intervals: Rate: 68 HI: 126 QRSD: 82 QT: 400 QTc: 425 [place]: P: 35 HI: 126 QRS: 74 T: 53 INTERPRETIVE STATEMENTS: Normal sinus rhythm Normal ECG Compared to ECG 09/25/2018 23:04:06 No significant changes Electronically Signed On 10-24-18 12:50:46 CDT by Mitchel Ocampo
== END 2018-10-23 21:44 | disposition home or self-care (01) ==
LOC: ER 18:52
DX: R51 Headache (principal); Z88.0 Allergy status to penicillin
CPT/HCPCS: 93005; 96374; 96375; 99285; J2765

== ENCOUNTER 2021-02-12 04:12 | Emergency (ER) | payer OTHER, SELFPAY ==
--- OUTSIDE RECORDS SUMMARY | 2021-02-12 04:16 | XMS REPORT | Continuity of Care Document ---
:1995 Author Organization [facility] t Address [address] [place] [address] Care Team Providers Name Role Phone Guanakito Lerma NP Attending Clinician Problems This patient has no known problems. Allergies, Adverse Reactions, Alerts This patient has no known allergies or adverse reactions. Medications This patient has no known medications. Procedures This patient has no known procedures. Encounters Start End Encounter Admission Attending Care Care Encounter Source Date/Time Date/Time Type Type Clinicians Facility Department ID 2020-02-21 2020-02-21 Emergency [facility] [id number] 13:53:23 17:03:00 Miracle López [id number] [place] [id number] [place] [id number] Results This patient has no known results.
[2021-02-12] MEDS ORDERED: TETANUS & DIPHTHERIA TOX,ADULT 0.5 ML VIAL ONE (05:01)
[2021-02-12] MEDS ORDERED: LIDOCAINE 1% MPF 30 ML VIAL ONE (05:27)
--- NOTE | 2021-02-12 06:15 | ER ---
Nurse's Notes [facility] Name: Caitlin Mcgovern Age: 25 yrs Sex: Female : 1995 Arrival Date: 02/12/2021 Time: 04:15 Bed 3 Private MD: Diagnosis: Laceration, Right Forearm;Abrasion, Left Hand Presentation: 02/12 04:19 Chief complaint: Patient states: tripped and fell on glass, reports happening about 20 em minutes ago, 2 lacerations noted to the right forearm, small amount of bleeding noted, pressure bandage applied, Dr. Diamond at bedside. Coronavirus screen: Client denies travel out of the [place] in the last 14 days. Ebola Screen: Patient negative for fever greater than or equal to 101.5 degrees Fahrenheit, and additional compatible Ebola Virus Disease symptoms Patient denies exposure to infectious person. Patient denies travel to an Ebola-affected area in the 21 days before illness onset. No symptoms or risks identified at this time. Initial Sepsis Screen: Does the patient meet any 2 criteria? HR > 90 bpm. No. Patient's initial sepsis screen is negative. Does the patient have a suspected source of infection? Yes: Skin breakdown/wound. Risk Assessment: Do you want to hurt yourself or someone else? Patient reports no desire to harm self or others. Onset of symptoms was February 12, 2021. 04:19 Method Of Arrival: Wheelchair em 04:19 Acuity: PRERNA 4 em Historical: - Allergies: 04:21 PENICILLINS; em - PMHx: 04:21 None; em - PSHx: 04:21 None; em - Immunization history:: Adult Immunizations not up to date. - Social history:: Smoking status: Patient denies any tobacco usage or history of. Screenin:19 Abuse screen: Denies threats or abuse. Nutritional screening: No deficits noted. em Tuberculosis screening: No symptoms or risk factors identified. Fall Risk None identified. Assessment: 04:20 General: Appears in no apparent distress. comfortable, Behavior is calm, cooperative, em appropriate for age. Pain: Denies pain. Neuro: Level of Consciousness is awake, alert, obeys commands, Oriented to person, place, time, situation, Appropriate for age. Cardiovascular: Capillary refill < 3 seconds Patient's skin is warm and dry. Respiratory: Airway is patent Respiratory effort is even, unlabored, Respiratory pattern is regular, symmetrical. Derm: Wound noted palmar aspect of right forearm. Musculoskeletal: Capillary refill < 3 seconds, Range of motion: intact in all extremities. Injury Description: Laceration sustained to palmar aspect of right forearm. 05:00 Reassessment: [employer] at bedside. em 06:00 Reassessment: Patient appears in no apparent distress at this time. Patient and/or em family updated on plan of care and expected duration. Pain level reassessed. Patient is alert, oriented x 3, equal unlabored respirations, skin warm/dry/pink. Vital Signs: 04:19 BP 115 / 74; Pulse 117; Resp 20; Temp 97.8; Pulse Ox 97% on R/A; Weight 81.65 kg; em Height 4 ft. 11 in. (149.86 cm); Pain 0/10; 04:19 Body Mass Index 36.36 (81.65 kg, 149.86 cm) em ED Course: 04:15 Patient arrived in ED. cf2 04:17 Conrado Diamond MD is Attending Physician. 7 04:19 Ranjeet Nur, RN is Primary Nurse. em 04:19 Patient has correct armband on for positive identification. Bed in low position. Call em light in reach. Pulse ox on. NIBP on. 04:20 Patient maintains SpO2 saturation greater than 95% on room air. em 04:21 Triage completed. em 04:21 Arm band placed on. em 05:10 Forearm Right XRAY In Process Unspecified. EDMS 05:10 Wrist Right 3 View XRAY In Process Unspecified. EDMS 05:10 Hand Left 3 View XRAY In Process Unspecified. EDMS 06:09 Assist provider with laceration repair on palmar aspect of right forearm that was em between 2.6 to 7.5 cm using sutures. Set up tray. Performed by Ranjeet Nur RN Dressed with 4X4s, Kerlix, Neosporin, Patient tolerated well. 06:24 Patient did not have IV access during this emergency room visit. 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 Exp: jb4 10/07/2021. Lot #: [id number]. } Route: IM; Site: left deltoid; 06:09 Follow up: Response: No adverse reaction em 06:08 Not Given (Patient Refused): Tylenol 1000 mg PO once em Outcome: 06:15 Discharge ordered by mh7 06:24 Discharged to home ambulatory, with family. em 06:24 Condition: good 06:24 Discharge instructions given to patient, family, Instructed on discharge instructions, follow up and referral plans. medication usage, wound care, Demonstrated understanding of instructions, follow-up care, medications, wound care, Prescriptions given X 1. 06:24 Patient left the ED. em Signatures: Dispatcher [employer] EDRanjeet Giron RN RN Rojas Moreau RN RN Martha Charles 2 Conrado Diamond MD MD 7
--- NOTE | 2021-02-12 06:16 | EDPHYS ---
Physician Documentation [facility] Name: Caitlin Mcgovern Age: 25 yrs Sex: Female : 1995 Arrival Date: 02/12/2021 Time: 04:15 Bed 3 Private MD: ED Physician Conrado Diamond HPI: 02/12 04:40 This 25 yrs old Female presents to ER via Wheelchair with complaints of Fall mh7 Injury, Laceration To Arm. 04:40 Details of fall: The patient fell from an upright position, while walking. Onset: The mh7 symptoms/episode began/occurred just prior to arrival, today. Associated injuries: The patient sustained right forearm, laceration. Severity of symptoms: At their worst the symptoms were moderate, earlier today, in the emergency department the symptoms are unchanged. States that she tripped and fell onto some glass while walking and injured her right arm. Denies any head trauma or LOC.. Historical: - Allergies: 04:21 PENICILLINS; em - PMHx: 04:21 None; em - PSHx: 04:21 None; em - Immunization history:: Adult Immunizations not up to date. - Social history:: Smoking status: Patient denies any tobacco usage or history of. ROS: 04:40 Constitutional: Negative for fever, chills, and weight loss, Eyes: Negative for injury, mh7 pain, redness, and discharge, ENT: Negative for injury, pain, and discharge, Neck: Negative for injury, pain, and swelling, Cardiovascular: Negative for chest pain, palpitations, and edema, Respiratory: Negative for shortness of breath, cough, wheezing, and pleuritic chest pain, Abdomen/GI: Negative for abdominal pain, nausea, vomiting, diarrhea, and constipation, Back: Negative for injury and pain, : Negative for injury, bleeding, discharge, and swelling, Neuro: Negative for headache, weakness, numbness, tingling, and seizure, Psych: Negative for depression, anxiety, suicide ideation, homicidal ideation, and hallucinations, Allergy/Immunology: Negative for hives, rash, and allergies, Endocrine: Negative for neck swelling, polydipsia, polyuria, polyphagia, and marked weight changes, Hematologic/Lymphatic: Negative for swollen nodes, abnormal bleeding, and unusual bruising. Exam: 04:40 Constitutional: This is a well developed, well nourished patient who is awake, alert, mh7 and in no acute distress. Head/Face: Normocephalic, atraumatic. Eyes: Pupils equal round and reactive to light, extra-ocular motions intact. Lids and lashes normal. Conjunctiva and sclera are non-icteric and not injected. Cornea within normal limits. Periorbital areas with no swelling, redness, or edema. Neck: Trachea midline, no thyromegaly or masses palpated, and no cervical lymphadenopathy. Supple, full range of motion without nuchal rigidity, or vertebral point tenderness. No Meningismus. Chest/axilla: Normal chest wall appearance and motion. Nontender with no deformity. No lesions are appreciated. Cardiovascular: Regular rate and rhythm with a normal S1 and S2. No gallops, murmurs, or rubs. Normal PMI, no JVD. No pulse deficits. Respiratory: Lungs have equal breath sounds bilaterally, clear to auscultation and percussion. No rales, rhonchi or wheezes noted. No increased work of breathing, no retractions or nasal flaring. Abdomen/GI: Soft, non-tender, with normal bowel sounds. No distension or tympany. No guarding or rebound. No evidence of tenderness throughout. Back: No spinal tenderness. No costovertebral tenderness. Full range of motion. Neuro: Awake and alert, GCS 15, oriented to person, place, time, and situation. Cranial nerves II-XII grossly intact. Motor strength 5/5 in all extremities. Sensory grossly intact. Cerebellar exam normal. Normal gait. Psych: Awake, alert, with orientation to person, place and time. Behavior, mood, and affect are within normal limits. 04:40 Skin: injury, laceration(s), the wound is approximately 2 cm(s), with a depth of 0.25 mh7 cm(s), of the palmar aspect of right forearm, the second wound is approximately 4 cm(s), with a depth of 0.5 cm(s), of the palmar aspect of right forearm, that can be described as no foreign body, linear, with mild bleeding. 04:40 Musculoskeletal/extremity: Extremities: noted in the palmar aspect of right forearm: mh7 laceration, noted in the left hand: abrasion, ROM: intact in all extremities, Circulation is intact in all extremities. Pulses: are normal with no appreciated deficits, Sensation intact. Compartment Syndrome exam of affected extremity: is normal. no numbness, no tingling, no sensation deficit, no palor, no weak pulses, Joints: All joints appear normal with full range of motion. Weight bearing: able to fully bear weight, without difficulty, Tendon exam: specific tendon testing normal through active and passive range of motion Vital Signs: 04:19 BP 115 / 74; Pulse 117; Resp 20; Temp 97.8; Pulse Ox 97% on R/A; Weight 81.65 kg; em Height 4 ft. 11 in. (149.86 cm); Pain 0/10; 04:19 Body Mass Index 36.36 (81.65 kg, 149.86 cm) em Laceration: 04:40 Wound Repair of 4cm ( 1.6in ) subcutaneous laceration to palmar aspect of right mh7 forearm. Linear shaped.. Distal neuro/vascular/tendon intact. Anesthesia: Local anesthetic administered with 4 mls of 1% lidocaine. Wound prep: Extensive cleansing with hibiclenz by me, Wound irrigation with saline by me, Wound explored extensively, Copious irrigation. Skin closed with 8 3-0 Ethilon using simple sutures and sterile technique. Dressed with Bacitracin, non-adherent dressing. Patient tolerated well. 04:40 Wound Repair of 2cm ( 0.8in ) subcutaneous laceration to palmar aspect of right mh7 forearm. Linear shaped.. Distal neuro/vascular/tendon intact. Anesthesia: Local anesthetic administered with 2 mls of 1% lidocaine. Wound prep: Extensive cleansing with hibiclenz by me, Wound irrigation with saline by me, Wound explored extensively, Copious irrigation. Skin closed with 4 3-0 Ethilon using simple sutures and sterile technique. Dressed with Bacitracin, non-adherent dressing. Patient tolerated well. MDM: 04:40 Counseling: I had a detailed discussion with the patient and/or guardian regarding: the [facility] historical points, exam findings, and any diagnostic results supporting the discharge/admit diagnosis, radiology results, the need for outpatient follow up, to return to the emergency department if symptoms worsen or persist or if there are any questions or concerns that arise at home. Response to treatment: the patient's symptoms have markedly improved after treatment. 06:01 Differential diagnosis: abrasion, contusion, fracture, laceration. Data reviewed: vital [facility] signs, nurses notes. 06:15 Patient medically screened. 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 Exp: jb4 10/07/2021. Lot #: [id number]. } Route: IM; Site: left deltoid; 06:09 Follow up: Response: No adverse reaction em 06:08 Not Given (Patient Refused): Tylenol 1000 mg PO once em Disposition Summary: 02/12/21 06:15 Discharge Ordered Location: Home [facility] Problem: new [facility] Symptoms: have improved [facility] Condition: Stable [facility] Diagnosis - Laceration, Right Forearm [facility] - Abrasion, Left Hand [facility] Followup: [facility] - With: Private Physician - When: 1 - 2 days - Reason: Wound Recheck, Worsening of condition, Recheck today's complaints, Continuance of care, Re-evaluation by your physician Followup: [facility] - With: Emergency Department - When: 48 Hours - Reason: Wound Recheck, Worsening of condition Discharge Instructions: - Discharge Summary Sheet [facility] - Laceration Care, Adult, [id number] [facility] - Sutures, [place], or Adhesive Wound Closure, [id number] [facility] Forms: - Medication Reconciliation Form [facility] - Thank You Letter [facility] - Antibiotic Education [facility] - Prescription Opioid Use [facility] Prescriptions: - Bactrim DS 800-160 mg Oral Tablet - take 1 tablet by ORAL route every 12 hours for 10 days; 20 tablet; Refills: 0, 7 Product Selection Permitted Signatures: Dispatcher [employer] Ranjeet Purcell RN RN Rojas Moreau RN RN jb4 Conrado Diamond MD MD [facility]
[2021-02-12 06:32] VITALS: BP 115/74; TEMP 97.8; O2SAT 97
--- NOTE | 2021-02-12 07:49 | RAD REPORT ---
EXAM DESCRIPTION: RAD - Hand Left 3 View - 02/12/2021 5:10 am CLINICAL HISTORY: trauma COMPARISON: Wrist Right 3 View dated 02/12/2021; Forearm Right dated 02/12/2021 FINDINGS: No fracture, dislocation or radiopaque foreign body is seen.
--- NOTE | 2021-02-12 07:50 | RAD REPORT ---
EXAM DESCRIPTION: RAD - Wrist Right 3 View - 02/12/2021 5:10 am CLINICAL HISTORY: trauma Pain COMPARISON: No comparisons FINDINGS: No fracture or dislocation seen. No foreign body or other soft tissue abnormality.
--- NOTE | 2021-02-12 07:50 | RAD REPORT ---
EXAM DESCRIPTION: RAD - Forearm Right - 02/12/2021 5:10 am CLINICAL HISTORY: trauma COMPARISON: No comparisons FINDINGS: No fracture, dislocation or radiopaque foreign body.
== END 2021-02-12 06:24 | disposition home or self-care (01) ==
LOC: ER 04:12
PROC: 0JQG0ZZ Repair Right Lower Arm Subcutaneous Tissue and Fascia, Open Approach (ICD-10-PCS; principal; 2021-02-12)
DX: S51.811A Laceration without foreign body of right forearm, initial encounter (principal); W01.198A Fall on same level from slipping, tripping and stumbling with subsequent striking against other object, initial encounter; Y93.01 Activity, walking, marching and hiking; Y92.89 Other specified places as the place of occurrence of the external cause; Z88.0 Allergy status to penicillin; Z23 Encounter for immunization
CPT/HCPCS: 90471; 90714; 99284

== ENCOUNTER 2021-12-20 09:29 | Emergency (ER) | payer SELFPAY ==
--- OUTSIDE RECORDS SUMMARY | 2021-12-20 09:31 | XMS REPORT | Continuity of Care Document ---
:1995 Author Organization [facility] t Address [address] [place] [address] Care Team Providers Name Role Phone Jenifer Clay Attending Clinician Doctor Unassigned, Name Attending Clinician Unavailable Guanakito Lerma NP Attending Clinician Payers Payer Name Policy Type Policy Number Effective Date Expiration Date Critical access hospital [id number] 2016 [facility] MEDICAID 00:00:00 Problems Condition Condition Condition Status Onset Resolution Last Treating Co mments Source Name Details Category Date Date Treatment Clinician Date Depression Depression Disease Active 2016-0 U nivers , , 4-17 ity of [place] Medical depression depression Br anch type type Allergies, Adverse Reactions, Alerts Allergy Allergy Status Severity Reaction(s) Onset Inactive Treating Comm ents Source Name Type Date Date Clinician Penicill Propensi Active Anaphylaxis 2019-0 U nivers ins ty to 7-26 ity of adverse 00:00: [place] reaction 00 Medical s Branch PENICILL Drug Active Anaphylaxis 0 Uni vers INS Class 7-26 ity of 00:00: [place] 00 Medical Branch NO KNOWN Drug Active Univers ALLERGIE Class ity of S [facility] Social History Social Habit Start Date Stop Date Quantity Comments Source Exposure to Not sure [facility] SARS-CoV-2 [facility] (event) Branch Tobacco use and 2020-02-23 2020-02-23 Never used Universit y of exposure 00:00:00 00:00:[address] [facility] Alcohol intake 2020-02-23 2020-02-23 Current University 00:00:00 00:00:00 non-drinker of [facility] alcohol Branch (finding) Sex Assigned At [birth year] Universit y of 00:00:00 00:00:[address] [facility] Smoking Status Start Date Stop Date Source Never smoker [facility] Medications Ordered Filled Start Stop Current Ordering Indication Dosage Frequency Signature Comments Components Source Medication Medication Date Date Medication? Clinician (SIG) Name Name ibuprofen 2019- 2020- No 800mg 800 mg, Uni vers (IBU) 02-20 Oral, ity of tablet 800 22:00: 21:52 ONCE, 1 [place] as mg 00 :00 dose, [facility] 02/21/20 at Branch 1700, JULIO buPROPion Yes [id number] 300mg Take 1 U nivers XL 300 mg 4-17 tablet by ity o f 24 hr 00:00: mouth [place] tablet 00 daily. [facility] buPROPion Yes [id number] 300mg Take 1 U nivers XL 300 mg 4-17 tablet by ity o f 24 hr 00:00: mouth [place] tablet 00 daily. [facility] buPROPion Yes [id number] 300mg Take 1 U nivers XL 300 mg 4-17 tablet by ity o f 24 hr 00:00: mouth [place] tablet 00 daily. [facility] Vital Signs Vital Name Observation Time Observation Value Comments Source Systolic blood 2021-02-19 22:46:00 132 mm[Hg] Univer sity of pressure [facility] Diastolic blood 2021-02-19 22:46:00 80 mm[Hg] [facility] 2021-02-19 22:46:00 87 /min [facility] Body temperature 2021-02-19 22:46:00 37.39 [facility]lee [facility] Respiratory rate 2021-02-19 22:46:00 16 /min [facility] Body height 2021-02-19 22:46:00 149.9 cm [facility] Body weight 2021-02-19 22:46:00 81.647 kg [facility] BMI 2021-02-19 22:46:00 36.36 kg/m2 [facility] Oxygen saturation in 2021-02-19 22:46:00 98 /min University of Arterial blood by [facility] Pulse oximetry Branch Systolic blood 2020-02-21 21:53:36 113 mm[Hg] Univer sity of pressure [facility] Diastolic blood 2020-02-21 21:53:36 77 mm[Hg] Unive rsity of pressure [facility] Heart rate 2020-02-21 21:53:36 66 /min Universi ty of [facility] Branch Respiratory rate 2020-02-21 21:53:36 16 /min Univ ersity of [facility] Oxygen saturation in 2020-02-21 21:53:36 100 /min University of Arterial blood by [facility] Pulse oximetry Branch Body temperature 2020-02-21 18:48:00 37.06 Kaylee Univ ersity of [facility] Body height 2020-02-21 18:48:00 152.4 cm [facility] Body weight 2020-02-21 18:48:00 86.183 kg Universi ty [facility] BMI 2020-02-21 18:48:00 37.11 kg/m2 [facility]i ty [facility] Systolic blood 2020-02-21 21:53:36 113 mm[Hg] Univer sity of pressure [facility] Branch Diastolic blood 2020-02-21 21:53:36 77 mm[Hg] Unive rsity of pressure [facility] Branch Heart rate 2020-02-21 21:53:36 66 /min Universi ty of [facility] Respiratory rate 2020-02-21 21:53:36 16 /min Univ ersity of [facility] Branch Oxygen saturation in 2020-02-21 21:53:36 100 /min University of Arterial blood by [facility] Pulse oximetry Branch Body temperature 2020-02-21 18:48:00 37.06 Kaylee Univ ersity [facility] Body height 2020-02-21 18:48:00 152.4 cm Universi [facility] Body weight 2020-02-21 18:48:00 86.183 kg [facility] BMI 2020-02-21 18:48:00 37.11 kg/m2 [facility] Procedures Procedure Date / Time Performed Performing Clinician [facility] e NOTICE OF PRIVACY 2021-02-19 22:38:28 Doctor Unassigned, No [facility] Name Medical Branch CONSENT/REFUSAL FOR 2021-02-19 22:38:11 Doctor Unassigned, No Un [facility] DIAGNOSIS AND Name Medical Branch TREATMENT XR HAND 3+ VW RIGHT 2020-02-21 19:21:01 Miracle Lerma Univers ity of [facility] XR WRIST 3+ VW RIGHT 2020-02-21 19:21:01 Miracle Lerma Univer sity of [facility] Encounters Start End Encounter Admission Attending Care Care Encounter Source Date/Time Date/Time Type Type Clinicians Facility Department ID 2021-05-29 Emergency [facility] [id number] Univers 10:37:[address] [facility] 2021-05-26 Emergency [facility] [id number] Univers 08:50:[address] [facility] 2021-02-19 2021-02-19 Emergency [facility] [id number] Univers 17:49:00 18:37:00 Betsy López [id number] ity of [place] [id number] [facility] [id number] [place] [id number] Branch 2021-02-19 2021-02-19 Orders Doctor [facility] [id number] Univers 00:00:00 00:00:00 Only Unassigned, INGRID [id number] ity of [place] [facility] [id number] [place] [id number] [place] [address] Branch 2020-02-21 2020-02-21 Emergency [facility] [id number] Univers 13:53:23 17:03:00 Miracle López [id number] ity of [place] [id number] [facility] [id number] [facility] 084 Branch 2020-02-21 2020-02-21 Emergency [facility] [id number] 13:53:23 17:03:00 Miracle López [id number] [place] [id number] [place] [id number] Results Test Description Test Time Test Comments Results Result Comments Source VITAMIN D, 25 OH 2021-08-01 06:34:29 Test Item Value Reference Range Interpretation Comme nts VITAMIN D, 25 OH (test code 10 NG/ML SEE BELOW L NOTE: 25-HYDROXYVITAMIN D ASSAY = 4958) INCLUDES 25-HYD ROXYVITAMIN D2 AND D3. METHOD OLOGY IS CHEMILUMINESCEN T IMMUNOASSAY. I NTERPRETIVE RANGES PEDIATRIC (<17 YEARS) . . . . . . . . . . . NG/ ML 20-100ADULT: I NSUFFICIENT . . . . . . . . . . . . . . NG/ML <20 SUBOPTI MAL . . . . . . . . . . . . . . . NG/ ML 20-29 OPTIMAL . . . . . . . . . . . . . . . . . NG/ML 30-100 UNLESS OTHERWIS E INDICATED, ALL TESTING PERFORM ED ATCLINICAL PATHOLOGY [facility]. [address] [place] [id number] LABORATORY DIRE CTOR: JULIA PERALES M.D. CLIA NUMBER [id number] [facility] [place] [id number] TSH, THIRD [id number] 06:15:03 Test Item Value Reference Range Interpretation Comments TSH, THIRD GENERATION (test code 0.756 UIU/ML 0.400-4.100 = 2821) CBC W/AUTO DIFF WITH [id number] 01:35:29 Test Item Value Reference Range Interpretation Comments WBC (test code = 9.7 K/UL 3.5-11.0 1001) RBC (test code = 4.61 M/UL 3.80-5.40 1002) HEMOGLOBIN (test code 13.4 G/DL 11.5-15.5 = 1003) HEMATOCRIT (test code 40.2 % 34.0-45.0 = 1004) MCV (test code = 87.2 fL 80.0-99.0 1005) MCH (test code = 29.1 PG 25.0-33.0 1006) MCHC (test code = 33.3 G/DL 31.0-36.0 1007) RDW (test code = 12.7 % 11.5-15.0 1038) NEUTROPHILS (test 63.5 % code = 1008) LYMPHOCYTES (test 24.2 % code = 1010) MONOCYTES (test code 7.6 % = 1011) EOSINOPHILS (test 3.7 % code = 1012) BASOPHILS (test code 0.6 % = 1013) IMMATURE GRANYLOCYTES 0.4 % (test code = 1036) NUCLEATED RBCS (test 0.0 /100 See_Comment [Autom ated code = 1065) WBC'S message] The sy stem which generated this result transmitted reference range : 0.0. The refere nce range was not u sed to interpret th is result as normal/abnormal . PLATELET COUNT (test 273 K/UL 130-400 code = 1015) ABSOLUTE NEUTROPHILS 6.13 K/UL 1.50-7.50 (test code = 1066) ABSOLUTE LYMPHOCYTES 2.34 K/UL 1.00-4.00 (test code = 1067) ABSOLUTE MONOCYTES 0.73 K/UL 0.20-1.00 (test code = 1068) ABSOLUTE EOSINOPHILS 0.36 K/UL 0.00-0.50 (test code = 1040) ABSOLUTE BASOPHILS 0.06 K/UL 0.00-0.20 (test code = 1069) ABS IMMATURE 0.04 K/UL 0.00-0.10 GRANULOCYTES (test code = 1020) ABS NUCLEATED RBCS 0.00 K/UL 0.00-0.11 (test code = 03666) XR HAND 3+ VW [id number] 20:36:57 1. ?No fracture. AFC: [id number] RL: 6200 HISTORY: ?hyperextension injury pain to hand and thumb COMPARISON: ?None. FINDINGS: 3 views of the right wrist and 3 views right hand demonstrate normalalignment. ?No fracture, foreign body, or focal osseous lesion isidentified. [facility], Radiant Results Inft User - 02/21/2020 3:38 PM CDTHISTORY: hyperextension injury pain to hand and thumb COMPARISON: None.FINDINGS:3 views of the right wrist and 3 views right hand demonstrate normalalignment. No fracture, foreign body, or focal osseous lesion isidentified.IMPRESSION1. No fracture.AFC: [id number]: 6200 [facility] W[facility] 3+ VW [id number] 20:36:57 1. ?No fracture. AFC: [id number] RL: 6200 ORY: ?hyperextension injury pain to hand and thumb COMPARISON: ?None. FINDINGS: 3 views of the right wrist and 3 views right hand demonstrate normalalignment. ?No fracture, foreign body, or focal osseous lesion isidentified. [facility], Radiant Results Inft User - 02/21/2020 3:38 PM CDTHISTORY: hyperextension injury pain to hand and thumb COMPARISON: None.FINDINGS:3 views of the right wrist and 3views right hand demonstrate normalalignment. No fracture, foreign body, or focal osseous lesion carlos eduardo dentified.IMPRESSION1. No fracture.AFC: [id number]: 6200 [facility]
[2021-12-20 10:36] LABS: Urine Blood Negative (Negative); Urine Glucose Negative (Negative); Urine Protein Negative (Negative)
[2021-12-20 11:44] LABS: Hematocrit 41.8 % (36.0-45.0); Lymphocytes % 20.1 % (15.3-44.8); MPV 9.2 fL (7.6-11.3); RBC Red Blood Cell Count 4.57 M/uL (3.86-4.86)
[2021-12-20 11:52] LABS: Albumin 3.7 g/dL (3.4-5.0); Bilirubin Total 0.6 mg/dL (0.2-1.0); Potassium 3.9 mmol/L (3.5-5.1); Protein, Total 8.3 g/dL (6.4-8.2)
--- NOTE | 2021-12-20 12:10 | RAD REPORT ---
EXAM DESCRIPTION: CTStone Protocol - 12/20/2021 11:59 am CLINICAL HISTORY: Flank pain, kidney stone suspected COMPARISON: CTSTONE PROTOCOL dated 11/27/2011 TECHNIQUE: CT of the abdomen and pelvis was performed. All CT scans are performed using dose optimization technique as appropriate and may include automated exposure control or mA/KV adjustment according to patient size. FINDINGS: Lower chest: No acute abnormality. Small to moderate hiatal hernia. Liver: No acute abnormality or suspicious lesions. Biliary: No biliary ductal dilatation. Stomach: No significant focal abnormality. Duodenum: No significant focal abnormality. Pancreas: No significant abnormality. Spleen: No significant abnormality. Adrenal: No suspicious lesions. Kidney/ureter: No hydronephrosis. No renal calculi. Retroperitoneum: No retroperitoneal adenopathy. Vascular: No aneurysm. Bowel: No significant focal abnormality. Normal appendix. Peritoneum: Trace free fluid. Bladder: Grossly unremarkable. Reproductive: Bilateral fat containing adnexal masses. The lesion on the right measures 5.1 cm and jose s calcification as well. The lesion on the left measures 4.7 cm. Bones: No acute fracture. Other: n/a IMPRESSION: 1. No acute intra-abdominal abnormality. Normal appendix. No urinary tract calculi. 2. Fat containing bilateral adnexal masses consistent with dermoids. Recommend gynecologic referral.
--- NOTE | 2021-12-20 12:56 | RAD REPORT ---
EXAM DESCRIPTION: US - Pelvis Complete - 12/20/2021 12:47 pm CLINICAL HISTORY: pelvic pain Pelvic pain. COMPARISON: TRANSVAGINAL STUDY PROBE dated 11/01/2012; Stone Protocol dated 12/20/2021 FINDINGS: The uterus is normal in size, shape and echotexture. The uterus measures 10.1 x 4.3 x 4.2 cm. The endometrial stripe measures 16-17 mm. This is normal in this age group. Bilateral ovarian dermoids are present. The right ovary measures 5.9 x 4.7 cm. The left ovary measu res 4.7 x 4.0 cm. Normal Doppler blood flow was demonstrated to both ovaries. No significant pelvic ascites. IMPRESSION: Bilateral ovarian dermoid tumors are present without evidence of torsion.
[2021-12-20] MEDS ORDERED: KETOROLAC 30 MG/ML INJ ONE (12:59)
[2021-12-20] MEDS ORDERED: MORPHINE 4 MG/ML SYR ONE (12:59)
[2021-12-20] MEDS ORDERED: ONDANSETRON 4 MG/2 ML VIAL ONE (12:59)
--- NOTE | 2021-12-20 14:26 | ER ---
Nurse's Notes [facility] Name: Caitlin Mcgovern Age: 26 yrs Sex: Female : 1995 Arrival Date: 12/20/2021 Time: 09:31 Bed Treatment Private MD: Diagnosis: Dermoid Tumor;Benign neoplasm of brain, unspecified Presentation: 12/20 10:13 Chief complaint: Patient states: has left abd pain and feeling nauseous , and having iw chest pains , this isn't the first time I've had this pain but this is worse. Coronavirus screen: At this time, the client does not indicate any symptoms associated with coronavirus-19. Ebola Screen: Patient negative for fever greater than or equal to 101.5 degrees Fahrenheit, and additional compatible Ebola Virus Disease symptoms Patient denies exposure to infectious person. Patient denies travel to an Ebola-affected area in the 21 days before illness onset. No symptoms or risks identified at this time. Initial Sepsis Screen: Does the patient meet any 2 criteria? No. Patient's initial sepsis screen is negative. Does the patient have a suspected source of infection? No. Patient's initial sepsis screen is negative. Risk Assessment: Do you want to hurt yourself or someone else? Patient reports no desire to harm self or others. Onset of symptoms was December 20, 2021. 10:13 Method Of Arrival: Ambulatory iw 10:13 Acuity: PRERNA 3 iw Triage Assessment: 14:43 General: Appears in no apparent distress. Behavior is calm, cooperative. GI: Bowel jose sounds present X 4 quads. Abd is soft and non tender X 4 quads. 14:43 GI: Reports Pain is 6 out of 10 on a pain scale. 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 - Social history:: Smoking status: Patient denies any tobacco usage or history of. Screenin:26 Abuse screen: Denies threats or abuse. Denies injuries from another. Nutritional iw screening: No deficits noted. Tuberculosis screening: No symptoms or risk factors identified. Fall Risk IV access (20 points). Assessment: 11:23 Reassessment: Patient appears in no apparent distress at this time. Patient and/or iw family updated on plan of care and expected duration. Pain level reassessed. Patient is alert, oriented x 3, equal unlabored respirations, skin warm/dry/pink. 12:35 Reassessment: Patient appears in no apparent distress at this time. Patient and/or iw family updated on plan of care and expected duration. Pain level reassessed. Patient is alert, oriented x 3, equal unlabored respirations, skin warm/dry/pink. 13:14 Pain: Complains of pain in chest and abdomen. GI: Bowel sounds present X 4 quads. jose Vital Signs: 10:13 BP 111 / 75; Pulse 71; Resp 16; Temp 98.7; Pulse Ox 100% on R/A; iw ED Course: 09:31 Patient arrived in ED. mr 09:32 Viet Ruiz PA is PHCP. [facility] 09:32 Zaki Connolly MD is Attending Physician. jmm 10:14 Triage completed. iw 10:15 Arm band placed on. iw 11:04 Urine --Ancillary (enter results) Sent. iw 11:23 Jyothi Motley, RN is Primary Nurse. iw 11:26 Initial lab(s) drawn, by tn, sent to lab. Inserted saline lock: 20 gauge in left iw antecubital area, using aseptic technique. Blood collected. 11:27 CBC with Diff Sent. mb7 11:27 CMP Sent. mb7 11:27 Lipase Sent. mb7 12:01 CT Stone Protocol In Process Unspecified. EDMS 12:49 US Pelvis Complete In Process Unspecified. EDMS 13:15 Patient has correct armband on for positive identification. jose 14:25 Cris Maurer MD is Referral Physician. jmm 14:44 No provider procedures requiring assistance completed. Inserted IV discontinued, jose intact, Pressure dressing applied. Administered Medications: 13:04 Drug: morphine 4 mg Route: IVP; Infused Over: 4 mins; Site: left antecubital; iw 13:15 Follow up: Response: No adverse reaction jose 13:04 Drug: Zofran (Ondansetron) 4 mg Route: IVP; Site: left antecubital; iw 13:15 Follow up: Response: No adverse reaction jose 13:04 Drug: Ketorolac 30 mg Route: IVP; Site: left antecubital; iw 13:15 Follow up: Response: No adverse reaction jose Medication: 12:35 VIS not applicable for this client. iw Outcome: 14:26 Discharge ordered by MD. santos 14:49 Discharged to home ambulatory. jose 14:49 Condition: good 14:49 Discharge instructions given to patient, Prescriptions given X 1. 14:49 Patient left the ED. jose Signatures: Dispatcher [employer] EDMS Viet Ruiz PA PA jmm Rivera, Mary mr Williams, Irene RN RN Luzmaria Sherman [facility] Xenia Campuzano RN RN jose
--- NOTE | 2021-12-20 14:26 | EDPHYS ---
Physician Documentation [facility] Name: Caitlin Mcgovern Age: 26 yrs Sex: Female : 1995 Arrival Date: 12/20/2021 Time: 09:31 Bed Treatment Private MD: ED Physician Zaki Connolly HPI: 12/20 09:51 This 26 yrs old Female presents to ER via Unassigned with complaints of jmm Abdominal Pain, Abdominal Swelling. 09:51 The patient presents with abdominal pain. Onset: The symptoms/episode began/occurred jmm gradually, 1 day(s) ago. The symptoms radiate to the left flank. Associated signs and symptoms: Pertinent positives: nausea, Pertinent negatives: diarrhea, shortness of breath, vaginal discharge. The symptoms are described as achy. Modifying factors: The symptoms are alleviated by nothing, the symptoms are aggravated by nothing. The patient has experienced a previous episode, with kidney stones. 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 - Social history:: Smoking status: Patient denies any tobacco usage or history of. ROS: 09:51 Constitutional: Negative for fever, chills, and weight loss, Cardiovascular: Negative jmm for chest pain, palpitations, and edema, Respiratory: Negative for shortness of breath, cough, wheezing, and pleuritic chest pain. 09:51 Abdomen/GI: Positive for abdominal pain, nausea. 09:51 Back: Positive for flank pain, on the left. 09:51 All other systems are negative. Exam: 09:51 Constitutional: This is a well developed, well nourished patient who is awake, alert, jmm and in no acute distress. Head/Face: atraumatic. Eyes: EOMI, no conjunctival erythema appreciated ENT: Moist Mucus Membranes Neck: Trachea midline, Supple Chest/axilla: Normal chest wall appearance and motion. Cardiovascular: Regular rate and rhythm. No edema appreciated Respiratory: Normal respirations, no respiratory distress appreciated Abdomen/GI: Non distended, soft Back: Normal ROM Skin: General appearance color normal MS/ Extremity: Moves all extremities, no obvious deformities appreciated, no edema noted to the lower extremities Neuro: Awake and alert Psych: Behavior is normal, Mood is normal, Patient is cooperative and pleasant Vital Signs: 10:13 BP 111 / 75; Pulse 71; Resp 16; Temp 98.7; Pulse Ox 100% on R/A; iw MDM: 09:41 Patient medically screened. [facility] 14:25 Data reviewed: vital signs, nurses notes. Counseling: I had a detailed discussion with [facility] the patient and/or guardian regarding: the historical points, exam findings, and any diagnostic results supporting the discharge/admit diagnosis, lab results, radiology results, the need for outpatient follow up, to return to the emergency department if symptoms worsen or persist or if there are any questions or concerns that arise at home. 12/20 09:42 Order name: CBC with Diff; Complete Time: 11:47 [facility] 12/20 09:42 Order name: CMP; Complete Time: 12:10 [facility] 12/20 09:42 Order name: Lipase; Complete Time: 12:10 [facility] 12/20 10:36 Order name: Urine Dipstick-Ancillary; Complete Time: 10:37 [facility] 12/20 10:45 Order name: Urine --Ancillary (enter results); Complete Time: 11:46 12/20 10:45 Order name: Urine --Ancillary (enter results) 12/20 09:42 Order name: IV Saline Lock; Complete Time: 11:27 [facility] 12/20 09:42 Order name: Labs collected and sent; Complete Time: 11:27 [facility] 12/20 09:42 Order name: Urine Dipstick-Ancillary (obtain specimen); Complete Time: 10:36 [facility] 12/20 09:42 Order name: CT Stone Protocol; Complete Time: 12:12 [facility] 12/20 12:13 Order name: US Pelvis Complete; Complete Time: 13:06 [facility] 12/20 09:42 Order name: Urine Test (obtain specimen); Complete Time: 10:36 [facility] Administered Medications: 13:04 Drug: morphine 4 mg Route: IVP; Infused Over: 4 mins; Site: left antecubital; iw 13:15 Follow up: Response: No adverse reaction jose 13:04 Drug: Zofran (Ondansetron) 4 mg Route: IVP; Site: left antecubital; iw 13:15 Follow up: Response: No adverse reaction jose 13:04 Drug: Ketorolac 30 mg Route: IVP; Site: left antecubital; 13:15 Follow up: Response: No adverse reaction jose Disposition: 16:09 Co-signature as Attending Physician, Zaki Connolly MD. rn Disposition Summary: 12/20/21 14:26 Discharge Ordered Location: Home jmm Condition: Stable jmm Diagnosis - Dermoid Tumor jmm - Benign neoplasm of brain, unspecified jmm Followup: [facility] - With: Cris Maurer MD - When: 2 - 3 days - Reason: Recheck today's complaints, Continuance of care, Re-evaluation by your physician Discharge Instructions: - Discharge Summary Sheet [facility] Forms: - Medication Reconciliation Form [facility] - Thank You Letter [facility] - Antibiotic Education [facility] - Prescription Opioid Use [facility] Prescriptions: - Diclofenac Sodium 75 mg Oral Tablet Sustained Release - take 1 tablet by ORAL route 2 times per day; 30 tablet; Refills: 0, Product [facility] Selection Permitted Signatures: Dispatcher [employer] Viet Mix PA PA jmm Williams, Irene, RN Zaki Ching MD MD rn Xenia Campuzano RN jose
[2021-12-20 14:53] VITALS: BP 111/75; TEMP 98.7; O2SAT 100
== END 2021-12-20 14:49 | disposition home or self-care (01) ==
LOC: ER 09:29
DX: D33.2 Benign neoplasm of brain, unspecified (principal); Z88.0 Allergy status to penicillin
CPT/HCPCS: 36415; 74176; 76377; 76856; 80053; 81003; 81025; 83690; 85025; 96374; 96375; 99284; J2405

== ENCOUNTER 2022-11-26 01:40 | Emergency (ER) | payer SELFPAY ==
--- OUTSIDE RECORDS SUMMARY | 2022-11-26 01:44 | XMS REPORT | Continuity of Care Document ---
:1995 Author Organization [facility] Address [address] [place] [address] Care Team Providers Name Role Phone [facility] [employer] M[employer]ION SUPPORT, [facility] Primary Care Physician [phone] [id number] Attending Clinician Unavailable Rosemary Lau Attending Clinician [phone] ROSEMARY HOLLOWAY Attending Clinician Unavailable Visit, [facility] Nurse Attending Clinician Unavailable ANJEL BRASWELL Attending Clinician Unavailable Marta RUDOLPH, Sridevi Barclay Attending Clinician Anjel Braswell NP Attending Clinician MICAH DOWNS Attending Clinician Unavailable Micah Downs MD Attending Clinician HONEY ZARAGOZA Attending Clinician Unavailable Honey Zaragoza APN Attending Clinician Doctor Unassigned, [place] Attending Clinician Unavailable Kvng Wilkinson Attending Clinician DEEPA QUINONES Attending Clinician Unavailable Deepa Singer Attending Clinician Betsy Clay Attending Clinician ANJEL BRASWELL Admitting Clinician Unavailable HONEY ZARAGOZA Admitting Clinician Unavailable DEEPA QUINONES Admitting Clinician Unavailable Payers Payer Name Policy Type Policy Number Effective Date Expiration Date S our[facility] [id number] 2016 CHOICE MEDICAID 00:00:00 [facility] [id number] 2021 00:00:00 Problems Condition Condition Condition Status Onset Resolution Last Treating Co mments Source Name Details Category Date Date Treatment Clinician Date Other Other Disease Active Univers general general 6-10 [place] of counseling [place] advice 00 Me dical for for Branch contracept contracept cuca cuca management management Obesity Obesity Disease Active Univers (BMI (BMI 6-10 ity of 30-39.9) 30-39.9) 00:00: [place] 00 Medical Branch Ovarian Ovarian Disease Active Univers cyst cyst 6-10 ity of 00:00: [place] 00 Medical [place] Depression Depression Disease Active U nivers , , 4-17 ity of unspecifie unspecifie [place] depression depression Br anch type type Allergies, Adverse Reactions, Alerts Allergy Allergy Status Severity Reaction(s) Onset Inactive Treating Comm ents Source Name Type Date Date Clinician Penicill Propensi Active Anaphylaxis 2020-0 U nivers ins ty to 7-26 ity of adverse 00:00: [place] reaction 00 Medical s Branch PENICILL Drug Active Anaphylaxis 2020-0 Uni vers INS Class 7-26 ity of 00:00: [place] 00 Medical Branch Penicill Propensi Active 2020-0 ins ty to 1-29 adverse 00:00: reaction 00 to drug Social History Social Habit Start Date Stop Date Quantity Comments Source Exposure to 2022-03-26 2022-04-05 Not sure [facility] SARS-CoV-2 00:00:00 16:06:00 [facility] (event) Branch Alcohol intake 2022-04-05 2022-04-05 Current University of 00:00:00 00:00:00 non-drinker of [facility] alcohol (finding) Branch Tobacco use and 2022-02-22 2022-02-22 Smokeless tobacco Un iversity of exposure 00:00:00 00:00:00 non-user [facility] Sex Assigned At [birth year] Universit y of 00:00:00 00:00:00 [facility] Smoking Status Start Date Stop Date Source Never smoked tobacco [facility] Medications Ordered Filled Start Stop Current Ordering Indication Dosage Frequency Signature Comments Components Source Medication Medication Date Date Medication? Clinician (SIG) Name Name levonorgest Yes [id number] 1{tbl} Take 1 Univers rel-ethinyl 9-08 tablet by ity of estradiol [place] (SR[place] 00 the Medical 0.1-20 morning. Branch mg-mcg per tablet levonorgest Yes [id number] 1{tbl} Take 1 Univers rel-ethinyl 9-08 tablet by ity of estradiol [place]SR[place] 00 the Medical 0.1-20 morning. Branch mg-mcg per tablet levonorgest Yes [id number] 1{tbl} Take 1 Univers rel-ethinyl 9-08 tablet by ity of estradiol [place]SRONYX[place] 00 the Medical 0.1-20 morning. Branch mg-mcg per tablet ondansetron Yes [id number] 4mg Take 1 Univers 4 mg 6-25 tablet by ity of disintegrat 00:00: mouth [place] ing tablet 00 every 8 Medica l (eight) Branch hours as needed for Nausea and Vomiting (N/V). proMETHazin Yes [id number] 25mg Take 1 Univers e 25 mg 6-25 tablet by ity of tablet 00:00: mouth [place] 00 every 8 Medical (eight) Branch hours as needed for N/V unresponsi ve to Ondansetro n. ondansetron Yes [id number] 4mg Take 1 Univers 4 mg 6-25 tablet by ity of disintegrat 00:00: mouth [place] ing tablet 00 every 8 Medica l (eight) Branch hours as needed for Nausea and Vomiting (N/V). proMETHazin Yes [id number] 25mg Take 1 Univers e 25 mg 6-25 tablet by ity of tablet 00:00: mouth [place] 00 every 8 Medical (eight) Branch hours as needed for N/V unresponsi ve to Ondansetro n. ondansetron Yes [id number] 4mg Take 1 Univers 4 mg 6-25 tablet by ity of disintegrat 00:00: mouth [place] ing tablet 00 every 8 Medica l (eight) Branch hours as needed for Nausea and Vomiting (N/V). proMETHazin 2021-0 Yes [id number] 25mg Take 1 Univers e 25 mg 6-25 tablet by ity of tablet 00:00: mouth [place] 00 every 8 Medical (eight) Branch hours as needed for N/V unresponsi ve to Ondansetro n. TAKE 1 2021-0 No TABLET BY 6-24 MOUTH ONCE 00:00: DAILY 00 TAKE 1 2021-0 No TABLET BY 6-24 MOUTH ONCE 00:00: DAILY 00 TAKE 1 2021-0 No TABLET BY 6-24 MOUTH ONCE 00:00: DAILY 00 Dose 2021-0 No Unknown 01-12 00:00: 00 Dose 2021-0 No Unknown 01-12 00:00: 00 Dose 2021-0 No Unknown 01-12 00:00: 00 medroxyPROG 2022-0 2022- No [id number] 150mg Univers ESTERone 6-10 -25 [id number] ity of (DEPO-PROVE 21:00: 21:59 [place] RA) 00 :00 Medical injection Branch 150 mg medroxyPROG 2022-0 2022- No [id number] 150mg Univers ESTERone 6-10 11-25 [id number] ity of (DEPO-PROVE 21:00: 21:59 [place] RA) 00 :00 Medical injection Branch 150 mg medroxyPROG 2022-0 2- No [id number] 150mg Univers ESTERone 6-10 11-25 [id number] ity of (DEPO-PROVE 21:00: 21:59 [place] RA) 00 :00 Medical injection Branch 150 mg ibuprofen 2021-0 Yes 800mg Take 800 Uni vers 800 mg 6-10 mg by ity of tablet 15:19: mouth [place] 08 every 6 Medical (six) Branch hours as needed. ibuprofen 2021-0 Yes 800mg Take 800 Uni vers 800 mg 6-10 mg by ity of tablet 15:19: mouth [place] 08 every 6 Medical (six) Branch hours as needed. ibuprofen 2021-0 Yes 800mg Take 800 Uni vers 800 mg 6-10 mg by ity of tablet 15:19: mouth [place] 08 every 6 Medical (six) Branch hours as needed. acetaminoph 2021-0 Yes [id number] 1{tbl} Take 1 Un sangeeta en-codeine 6-08 tablet by ity of 300-30 mg 00:00: mouth [place] tablet 00 every 6 Medical (six) Branch hours as needed for Pain (scale 4-6). Indication s: acute pain acetaminoph 2-0 Yes [id number] 1{tbl} Take 1 Un sangeeta en-codeine 6-08 tablet by ity of 300-30 mg 00:00: mouth [place] tablet 00 every 6 Medical (six) Branch hours as needed for Pain (scale 4-6). Indication s: acute pain acetaminoph 2-0 Yes [id number] 1{tbl} Take 1 Un sangeeat en-codeine 6-08 tablet by ity of 300-30 mg 00:00: mouth [place] tablet 00 every 6 Medical (six) Branch hours as needed for Pain (scale 4-6). Indication s: acute pain Dose 2022-0 No Unknown 6-05 00:00: 00 Dose 2022-0 No Unknown 6-05 00:00: 00 Dose 2-0 No Unknown 6-05 00:00: 00 Dose 2-0 No Unknown 6-05 00:00: 00 Dose 2022-0 No Unknown 6-05 00:00: 00 Dose 2022-0 No Unknown 6-05 00:00: 00 Dose 2-0 No Unknown 6-05 00:00: 00 Dose 2-0 No Unknown 6-05 00:00: 00 Dose 2022-0 No Unknown 6-05 00:00: 00 TAKE 2 2-0 No TABLETS BY 6-03 MOUTH ON 00:00: DAY AND 00 THEN TAKE 1 TABLET BY MOUTH ONCE A DAY ON DAY 2 THROUGH DAY 5 TAKE 2 2022-0 No TABLETS BY 6-03 MOUTH ON 00:00: DAY AND 00 THEN TAKE 1 TABLET BY MOUTH ONCE A DAY ON DAY 2 THROUGH DAY 5 TAKE 2 2022-0 No TABLETS BY 6-03 MOUTH ON 00:00: DAY AND 00 THEN TAKE 1 TABLET BY MOUTH ONCE A DAY ON DAY 2 THROUGH DAY 5 ibuprofen 2022-0 No 1mg 800 mg 6-02 tablet 00:00: 00 Dose 2022-0 No Unknown 6-02 00:00: 00 Dose 2022-0 No Unknown 6-02 00:00: 00 Dose 2-0 No Unknown 6-02 00:00: 00 Dose 2-0 No Unknown 6- 00:00: 00 ibuprofen 2022-0 No 1mg 800 mg 6-02 tablet 00:00: 00 Dose 2022-0 No Unknown 6- 00:00: 00 Dose 2022-0 No Unknown 6- 00:00: 00 Dose 2022-0 No Unknown 6- 00:00: 00 ibuprofen 2022-0 No 1mg 800 mg 6-02 tablet 00:00: 00 Dose 2022-0 No Unknown 6- 00:00: 00 Dose 2022-0 No Unknown 6- 00:00: 00 Dose 2022-0 No Unknown 6- 00:00: 00 Dose 2022-0 No Unknown 6- 00:00: 00 Dose 2022-0 No Unknown 6- 00:00: 00 azithromyci 2022-0 No mg n 250 mg 2-02 tablet 00:00: 00 benzonatate 2022-0 No 1mg 200 mg 2-02 capsule 00:00: 00 Dose 2022-0 No Unknown 2-02 00:00: 00 azithromyci 2022-0 No mg n 250 mg 2-02 tablet 00:00: 00 benzonatate 2022-0 No 1mg 200 mg 2-02 capsule 00:00: 00 Bromfed DM 2-0 No 10mg/5 2 mg-30 2-02 mL mg-10 mg/5 00:00: mL oral 00 syrup azithromyci 2-0 No mg n 250 mg 2-02 tablet 00:00: 00 benzonatate 2022-0 No 1mg 200 mg 2-02 capsule 00:00: 00 Dose 2022-0 No Unknown 2-02 00:00: 00 Vitamin D2 2022-0 No 1(50,00 1,250 mcg 1-04 0 unit) (50,000 00:00: unit) 00 capsule Dose 2-0 No Unknown 1-04 00:00: 00 Dose 2022-0 No Unknown 1-04 00:00: 00 Zyrtec 10 1-0 No 1mg mg tablet 04-14 00:00: 00 azithromyci 1-0 No mg n 250 mg - tablet 00:00: 00 Zyrtec 10 2020-0 No 1mg mg tablet 04-14 00:00: 00 azithromyci 2021-0 No mg n 250 mg 9-17 tablet 00:00: 00 Zyrtec 10 1-0 No 1mg mg tablet 9-17 00:00: 00 azithromyci 2021-0 No mg n 250 mg 9-17 tablet 00:00: 00 prednisone 2020-0 No 2mg 20 mg 3-18 tablet 00:00: 00 loratadine 2020-0 No mg 10 mg 3-18 tablet 00:00: 00 prednisone 2020-0 No 2mg 20 mg 3-18 tablet 00:00: 00 loratadine 2020-0 No mg 10 mg 3-18 tablet 00:00: 00 prednisone 2020-0 No 2mg 20 mg 3-18 tablet 00:00: 00 loratadine 2020-0 No mg 10 mg 3-18 tablet 00:00: 00 doxycycline 2020-0 No 1mg monohydrate 3-07 100 mg 00:00: capsule 00 Dose 2020-0 No Unknown 3-07 00:00: 00 doxycycline 2020-0 No 1mg monohydrate 3-07 100 mg 00:00: capsule 00 Dose 2020-0 No Unknown 3-07 00:00: 00 doxycycline 2020-0 No 1mg monohydrate 3-07 100 mg 00:00: capsule 00 Bromfed DM 2020-0 No 10mg/5 2 mg-30 3-07 mL mg-10 mg/5 00:00: mL oral 00 syrup loratadine 2020-0 No 1mg 10 mg 1-29 tablet 00:00: 00 azithromyci 2020-0 No mg n 250 mg 1-29 tablet 00:00: 00 Dose 2020-0 No Unknown 1-29 00:00: 00 loratadine 2020-0 No 1mg 10 mg 1-29 tablet 00:00: 00 azithromyci 2020-0 No mg n 250 mg 1-29 tablet 00:00: 00 Dose 2020-0 No Unknown 1-29 00:00: 00 loratadine 2020-0 No 1mg 10 mg 1-29 tablet 00:00: 00 azithromyci 2020-0 No mg n 250 mg 1-29 tablet 00:00: 00 Bromfed DM 2020-0 No 5mg/5 2 mg-30 1-29 mL mg-10 mg/5 00:00: mL oral 00 syrup Immunizations Ordered Immunization Filled Immunization Date Status Commen ts Source Name Name BECCA-19, (Pfizer) 2022-02-23 Completed mRNA, LNP-S, PF, 30 00:00:00 mcg/0.3 mL dose, amaris-sucrose COVID-19, (Pfizer) 2022-02-23 Completed mRNA, LNP-S, PF, 30 00:00:00 mcg/0.3 mL dose, amaris-sucrose COVID-19, (Amperion) 2022-02-23 Completed mRNA, LNP-S, PF, 30 00:00:00 mcg/0.3 mL dose, amaris-sucrose Vital Signs Vital Name Observation Time Observation Value Comments Source Systolic blood 2022-04-05 21:06:00 133 mm[Hg] Univer sity [facility] Diastolic blood 2022-04-05 21:06:00 83 mm[Hg] [facility] 2022-04-05 21:06:00 86 /min [facility] Body temperature 2022-04-05 21:06:00 36.78 [facility] 2022-04-05 21:06:00 18 /min [facility] Body height 2022-04-05 21:06:00 149.9 cm [facility] Body weight 2022-04-05 21:06:00 77.338 kg [facility] BMI 2022-04-05 21:06:00 34.44 kg/m2 [facility] BP Systolic 2022-07-06 09:20:00 127 mm[Hg] BP Diastolic 2022-07-06 09:20:00 85 mm[Hg] Weight Measured 2022-07-06 09:20:00 169.40 pounds Height Measured 2022-07-06 09:20:00 60.00 inches Body Temperature 2022-07-06 09:20:00 98.20 degrees Heart Rate 2022-07-06 09:20:00 77.00 /min Respiratory Rate 2022-07-06 09:20:00 18.00 /min BP Systolic 2022-04-11 15:41:00 125 mm[Hg] BP Diastolic 2022-04-11 15:41:00 81 mm[Hg] Weight Measured 2022-04-11 15:41:00 171.80 pounds Height Measured 2022-04-11 15:41:00 60.00 inches Body Temperature 2022-04-11 15:41:00 98.30 degrees Heart Rate 2022-04-11 15:41:00 80.00 /min Respiratory Rate 2022-04-11 15:41:00 BP Systolic 2022-03-14 10:54:00 107 mm[Hg] BP Diastolic 2022-03-14 10:54:00 75 mm[Hg] Weight Measured 2022-03-14 10:54:00 165.60 pounds Height Measured 2022-03-14 10:54:00 60.00 inches Body Temperature 2022-03-14 10:54:00 98.40 degrees Heart Rate 2022-03-14 10:54:00 78.00 /min Respiratory Rate 2022-03-14 10:54:00 18.00 /min BP Systolic 2021-12-28 15:12:00 125 mm[Hg] BP Diastolic 2021-12-28 15:12:00 84 mm[Hg] Weight Measured 2021-12-28 15:12:00 173.20 pounds Height Measured 2021-12-28 15:12:00 60.00 inches Body Temperature 2021-12-28 15:12:00 98.40 degrees Heart Rate 2021-12-28 15:12:00 68.00 /min Respiratory Rate 2021-12-28 15:12:00 20.00 /min BP Systolic 2021-07-31 13:55:00 129 mm[Hg] BP Diastolic 2021-07-31 13:55:00 86 mm[Hg] Weight Measured 2021-07-31 13:55:00 184.20 pounds Height Measured 2021-07-31 13:55:00 60.00 inches Body Temperature 2021-07-31 13:55:00 98.40 degrees Heart Rate 2021-07-31 13:55:00 84.00 /min Respiratory Rate 2021-07-31 13:55:00 25.00 /min BP Systolic 2019-10-21 08:55:00 129 mm[Hg] BP Diastolic 2019-10-21 08:55:00 84 mm[Hg] Weight Measured 2019-10-21 08:55:00 191.20 pounds Height Measured 2019-10-21 08:55:00 60.00 inches Body Temperature 2019-10-21 08:55:00 99.20 degrees Heart Rate 2019-10-21 08:55:00 64.00 /min Respiratory Rate 2019-10-21 08:55:00 20.00 /min BP Systolic 2019-10-14 08:19:00 108 mm[Hg] BP Diastolic 2019-10-14 08:19:00 74 mm[Hg] Weight Measured 2019-10-14 08:19:00 190.60 pounds Height Measured 2019-10-14 08:19:00 60.00 inches Body Temperature 2019-10-14 08:19:00 99.10 degrees Heart Rate 2019-10-14 08:19:00 70.00 /min Respiratory Rate 2019-10-14 08:19:00 16.00 /min BP Systolic 2019-10-03 14:34:00 105 mm[Hg] BP Diastolic 2019-10-03 14:34:00 71 mm[Hg] Weight Measured 2019-10-03 14:34:00 189.40 pounds Height Measured 2019-10-03 14:34:00 60.00 inches Body Temperature 2019-10-03 14:34:00 99.10 degrees Heart Rate 2019-10-03 14:34:00 123.00 /min Respiratory Rate 2019-10-03 14:34:00 16.00 /min BP Systolic 2019-09-28 08:34:00 105 mm[Hg] BP Diastolic 2019-09-28 08:34:00 73 mm[Hg] Weight Measured 2019-09-28 08:34:00 190.80 pounds Height Measured 2019-09-28 08:34:00 60.00 inches Body Temperature 2019-09-28 08:34:00 98.80 degrees Heart Rate 2019-09-28 08:34:00 70.00 /min Respiratory Rate 2019-09-28 08:34:00 18.00 /min BP Systolic 2019-08-26 13:42:00 128 mm[Hg] BP Diastolic 2019-08-26 13:42:00 91 mm[Hg] Weight Measured 2019-08-26 13:42:00 190.80 pounds Height Measured 2019-08-26 13:42:00 60.00 inches Body Temperature 2019-08-26 13:42:00 99.10 degrees Heart Rate 2019-08-26 13:42:00 107.00 /min Respiratory Rate 2019-08-26 13:42:00 18.00 /min Procedures This patient has no known procedures. Plan of Care Planned Activity Planned Date Details Comments Source Goal Plan of Care Note [code = 06327-6] Goal Plan of Care Note [code = 13383-2] Goal Plan of Care Note [code = 24469-5] Goal Plan of Care Note [code = 37583-2] Goal Plan of Care Note [code = 22147-3] Goal Plan of Care Note [code = 79997-1] Goal Plan of Care Note [code = 74546-3] Goal Plan of Care Note [code = 34936-7] Goal Plan of Care Note [code = 91018-8] Goal Plan of Care Note [code = 86615-1] Goal Plan of Care Note [code = 99472-5] Goal Plan of Care Note [code = 77906-2] Goal Plan of Care Note [code = 46432-8] Goal Plan of Care Note [code = 83095-5] Goal Plan of Care Note [code = 52068-8] Goal Plan of Care Note [code = 71190-5] Goal Plan of Care Note [code = 17442-4] Goal Plan of Care Note [code = 41116-8] Goal Plan of Care Note [code = 05165-7] Goal Plan of Care Note [code = 52120-6] Goal Plan of Care Note [code = 78794-3] Goal Plan of Care Note [code = 46446-2] Goal Plan of Care Note [code = 60468-6] Goal Plan of Care Note [code = 03732-6] Goal Plan of Care Note [code = 42134-6] Goal Plan of Care Note [code = 07215-0] Goal Plan of Care Note [code = 97310-2] Goal Plan of Care Note [code = 67733-6] Goal Plan of Care Note [code = 82026-1] Goal Plan of Care Note [code = 53579-4] Goal Plan of Care Note [code = 14590-9] Goal Plan of Care Note [code = 06469-9] Goal Plan of Care Note [code = 05224-7] Goal Plan of Care Note [code = 68957-7] Goal Plan of Care Note [code = 04285-7] Goal Plan of Care Note [code = 74977-6] Goal Plan of Care Note [code = 74860-9] Goal Plan of Care Note [code = 86615-3] Goal Plan of Care Note [code = 24997-6] Goal Plan of Care Note [code = 57260-3] Goal Plan of Care Note [code = 60535-0] Goal Plan of Care Note [code = 98177-5] Goal Plan of Care Note [code = 69986-0] Goal Plan of Care Note [code = 68502-4] Goal Plan of Care Note [code = 22054-6] Goal Plan of Care Note [code = 50873-6] Goal Plan of Care Note [code = 25945-1] Goal Plan of Care Note [code = 27499-5] Goal Plan of Care Note [code = 80367-9] Goal Plan of Care Note [code = 82823-2] Goal Plan of Care Note [code = 83598-0] Goal Plan of Care Note [code = 15545-4] Goal Plan of Care Note [code = 26970-5] Goal Plan of Care Note [code = 65267-8] Goal Plan of Care Note [code = 65487-2] Goal Plan of Care Note [code = 43779-2] Goal Plan of Care Note [code = 00065-7] Goal Plan of Care Note [code = 21955-5] Goal Plan of Care Note [code = 60351-3] Goal Plan of Care Note [code = 08631-2] Goal Plan of Care Note [code = 54296-6] Goal Plan of Care Note [code = 68013-6] Goal Plan of Care Note [code = 99238-2] Goal Plan of Care Note [code = 33228-1] Goal Plan of Care Note [code = 45203-8] Goal Plan of Care Note [code = 88597-7] Goal Plan of Care Note [code = 57479-8] Goal Plan of Care Note [code = 92473-7] Goal Plan of Care Note [code = 94856-0] Goal Plan of Care Note [code = 32083-7] Goal Plan of Care Note [code = 12417-4] Goal Plan of Care Note [code = 38309-8] Goal Plan of Care Note [code = 84222-7] Goal Plan of Care Note [code = 90015-6] Goal Plan of Care Note [code = 68062-2] Goal Plan of Care Note [code = 89555-7] Goal Plan of Care Note [code = 22165-4] Goal Plan of Care Note [code = 45264-9] Goal Plan of Care Note [code = 06739-9] Goal Plan of Care Note [code = 28555-9] Goal Plan of Care Note [code = 01970-2] Goal Plan of Care Note [code = 92060-5] Goal Plan of Care Note [code = 18327-1] Goal Plan of Care Note [code = 00813-0] Goal Plan of Care Note [code = 70111-2] Encounters Start End Encounter Admission Attending Care Care Encounter Source Date/Time Date/Time Type Type Clinicians Facility Department ID 2021-05-29 Emergency [facility] [id number] Univers 10:37:03 [facility] 2021-05-26 Emergency [facility] [id number] Univers 08:50:48 [facility] 2022-09-05 2022-09-05 Outpatient SFA SFA [id number] Kt 15:17:08 15:17:08 0208 F [place] 2022-08-20 2022-08-20 Outpatient SFA SFA [id number] Kt 14:27:04 14:27:04 0123 F [place] 2022-07-06 2022-07-06 Outpatient SFA [facility] [id number] Kt 09:04:26 09:04:26 1209 F [place] 2022-07-06 2022-07-06 Outpatient [id number] 00:00:00 00:00:00 Visit [id number] 2022-05-11 2022-05-11 Outpatient R [facility] [id number] Univers 15:15:00 15:15:00 [facility] 2022-05-01 2022-05-01 Telephone Pgy3 [facility] [id number] [id number] Univers 00:00:00 00:00:00 Y HEALTH 350.1.13.10 i ty of [facility] [place] [id number] [address] 2022-04-30 2022-04-30 Telephone Amie [facility] 1.2.840.114 [id number] Univers 00:00:00 00:00:00 Rosemary C DRAWER IN 350.1.13.10 ity of [facility] 4.2.7.2.686 [place] as MATERNAL [id number] [facility] & CHILD [address] [place] [address] 2022-04-11 2022-04-11 Outpatient [id number] 00:00:00 00:00:00 Visit [id number] 2022-04-05 2022-04-05 Outpatient R AMIE [facility] [id number] Univers 15:45:00 16:25:00 ROSEMARY parrish [facility] 2022-04-05 2022-04-05 [facility] 1960 Univers 15:45:00 16:25:00 Visit Rosemary Fournier DRAWER [place] 350.1.13.10 ity of [facility] 4.2.7.2.686 [place] MATERNAL [id number] [address] 2022-04-05 2022-04-05 Outpatient R AMIE [facility] [id number] Univers 15:45:00 16:25:00 ROSEMARY abbott o f [facility] 2022-03-30 2022-03-30 Nurse Visit, Kuldeep-Rmchp Nurse [facility] 1.2 .840.114 [id number] Univers 13:00:00 13:15:00 Visit Rosemary Holloway DRAWER [place] 350.1.13. 10 ity of REGIONAL 4.2.7.2.686 [place] MATERNAL [id number] [facility] & CHILD [address] [place] [address] 2022-03-302022-03-30 Outpatient R [facility] [id number] Univers 13:00:00 13:00:00 ity [facility] 2022-03-30 2022-03-30 Outpatient R [facility] [id number] Univers 13:00:00 13:00:00 ity of [facility] 2022-03-30 2022-03-30 Outpatient R AKINSIPE, [facility] [id number] Univers 13:00:00 13:00:00 ROSEMARY abbott o f [facility] 2022-03-15 2022-03-15 Emergency X FRENCH [facility] ERT [id number] Univers 10:24:00 14:46:00 ANJEL abbott [facility] 2022-03-15 2022-03-15 Emergency Sridevi Lozano [facility] 1.2.840 .114 [id number] Univers 10:24:00 14:46:00 Anjel Braswell [facility] 4[facility]2.7[facility]2.[facility] [id number] [facility] [address] 2022-03-14 2022-03-14 Outpatient [id number] 00:00:00 00:00:00 Visit [id number] 2022-03-14 2022-03-14 Telephone Pgy3 [facility] 1.2.840.114 [id number] Univers 00:00:00 00:00:00 [facility] [address] [facility] 4.2.7.2.686 [facility] [id number] [facility] [address] 2022-02-22 2022-02-22 Outpatient R CHON [facility] [id number] Univers 13:30:00 14:52:16 MICAH ity [facility] 2022-02-22 2022-02-22 Office Pgy3 UN[facility]ERS[facility] [id number] [id number] Univers 13:30:00 14:52:16 Visit Micah Downs [facility] 350.1.13.10 ity of [facility] 4.2.7.2.686 [facility] [id number] [facility] [address] 2022-02-22 2022-02-22 Outpatient R CHON [facility] [id number] Univers 13:30:00 14:52:16 MICAH [facility] 2022-01-22 2022-01-22 [facility] [id number] Univers 14:45:00 15:58:53 Visit Rosemary Fournier DRAWER [place] 350.1.13.10 ity of [facility] 4.2.7.2.686 [place] MATERNAL [id number] Med ical & CHILD [address] [place] [address] 2022-01-22 2022-01-22 [facility] [id number] Univers 14:45:00 15:58:53 ROSEMARY abbott o [facility] 2022-01-22 2022-01-22 [facility] [id number] Univers 14:45:00 14:45:00 ROSEMARY abbott o [facility] 2022-01-20 2022-01-20 Emergency [facility] [id number] Univers 16:50:00 20:47:00 [facility]-20 2022-01-20 [facility] [id number] Univers 16:50:00 20:47:00 Honey [place] [id number] [facility] [id number] [facility] [id number] [facility] 084 [place] 2022-01-20 2022-01-20 Emergency [facility] [id number] Univers 16:50:00 20:47:00 HONEY milena [facility] 2022-01-05 2022-01-05 Office [facility] [id number] Univers 15:00:00 16:11:30 Visit Rosemary Fournier [place] 350.1.13.10 ity of [facility] 4.2.7.2.686 [place] MATERNAL [phone] [facility] ical & CHILD [address] [place] [address] 2022-01-05 2022-01-05 Outpatient [facility], [facility] [id number] Univers 15:00:00 16:11:30 ROSEMARY eddyy o f [facility] 2022-01-05 2022-01-05 Outpatient R AKINSIPE, [facility] [id number] Univers 15:00:00 15:00:00 ROSEMARY surjity o f [facility] 2022-01-05 2022-01-05 Orders Doctor MUSA [id number] Univers 00:00:00 00:00:00 Only Unassigned, INGRID 350.1.13.10 ity of [place] [facility] 4.2.7.2.686 [place] as [phone] [address] 2022-01-04 2022-01-04 [facility] [id number] Univers 00:00:00 00:00:00 Kvng Herrera [place] 350.1.13.10 ity of [facility] 4.2.7.2.686 [place] MATERNAL [phone] [facility] & CHILD [address] [place] [address] 2022-01-03 2022-01-03 Emergency [facility] ERT [id number] Univers 17:41:00 19:42:00 [place] it y of [facility] 2022-01-03 2022-01-03 Emergency [facility] [id number] Univers 17:41:00 19:42:00 Deepa HYDEN 350.1.13.10 ity of [place] 4.2.7.2.686 [place] [facility] [phone] [facility] 084 [place] 2022-01-03 2022-01-03 Orders Doctor VIGIL [id number] Univers 00:00:00 00:00:00 Only Unassigned, INGRID 350.1.13.10 ity of [place] [facility] 4.2.7.2.686 [place] as [phone] [facility] 009 [place] 2021-12-29 2021-12-29 Orders Doctor MUSA 1.2.840.114 [id number] Univers 00:00:00 00:00:00 Only Unassigned, INGRID 350.1.13.10 ity of [place] [facility] 4.2.7.2.686 [place] as [phone] [address] 2021-02-19 2021-02-19 [facility] [id number] Univers 17:49:00 18:37:00 Betsy Burgess Rene 350.1.13.10 ity of [place] 4.2.7.2.686 [facility] [phone] [address] 2021-02-19 2021-02-19 Orders Doctor MUSA 1.2.840.114 [id number] Univers 00:00:00 00:00:00 Only Unassigned, INGRID 350.1.13.10 ity of [place] [facility] 4.2.7.2.686 [place] as [phone] [address] 2020-02-21 2020-02-21 Emergency [facility] [id number] [facility] 13:53:23 17:03:00 Anjel [place] 350.1.13.10 ity of [place] 4.2.7.2.686 [facility] [phone] [address] 2020-02-21 2020-02-21 [facility] [id number] 13:53:23 17:03:00 Anjel Calabrese [place] 350.1.13.10 [place] 4.2.7.2.686 [place] [phone] [id number] Results Test Description Test Time Test Comments Results Result Comments Source VITAMIN D, 25 [place] 2021-08-01 06:34:29 Test Item Value Reference Range Interpretation Comme nts VITAMIN D, 25 OH (test code 10 NG/ML SEE BELOW L NOTE: 25-HYDROXYVITAMIN D ASSAY = 4958) INCLUDES 25-HYD ROXYVITAMIN D2 AND D3. METHODOLOGY IS CHEMILUMINESCENT IMMUNOASSAY. INTERPRETIVE RANGES PED IATRIC (<17 YEARS) . . . . . . . . . . . NG/ML 20-100ADULT: INSUFFICIENT . . . . . . . . . . . . . . NG/ML <20 S UBOPTIMAL . . . . . . . . . . . . . . . NG/ML 20-29 OPTIMAL . . . . . . . . . . . . . . . . . NG/ML 30-100 UN LESS OTHERWISE INDICATED, ALL TESTING PERFORMED ATCLINICAL [facility] [employer] [address] [place] [address] LABORATORY DIRE CTOR: JULIA PERALES M.D. RICKIA NUMBER [id number] [facility] [place]. [id number] TSH, THIRD [id number] 06:15:03 Test Item Value Reference Range Interpretation Comments TSH, THIRD GENERATION (test code 0.756 UIU/ML 0.400-4.100 = 2821) CBC W/AUTO DIFF WITH [id number] 01:35:29 Test Item Value Reference Range Interpretation [...] = 1036) NUCLEATED RBCS (test 0.0 /100 WBC'S See_Comment [Aut omated code = 1065) message] The sy stem which generated this [...] RBCS 0.00 K/UL 0.00-0.11 (test code = 07042) CBC W/AUTO [id number] 00:00:00 Test Item Value Reference Range Interpretation Comments WBC (test code = 1001) 9.7 K/UL RBC (test code = 1002) 4.61 M/UL HEMOGLOBIN (test code = 1003) 13.4 G/DL HEMATOCRIT (test code = 1004) 40.2 % MCV (test code = 1005) 87.2 fL MCH (test code = 1006) 29.1 PG MCHC (test code = 1007) 33.3 G/DL RDW (test code = 1038) 12.7 % NEUTROPHILS (test code = 1008) 63.5 % LYMPHOCYTES (test code = 1010) 24.2 % MONOCYTES (test code = 1011) 7.6 % EOSINOPHILS (test code = 1012) 3.7 % BASOPHILS (test code = 1013) 0.6 % IMMATURE GRANYLOCYTES (test 0.4 % code = 1036) NUCLEATED RBCS (test code = 0.0 /100WBC'S 1065) PLATELET COUNT (test code = 273 K/UL 1015) ABSOLUTE NEUTROPHILS (test code 6.13 K/UL = 1066) ABSOLUTE LYMPHOCYTES (test code 2.34 K/UL = 1067) ABSOLUTE MONOCYTES (test code = 0.73 K/UL 1068) ABSOLUTE EOSINOPHILS (test code 0.36 K/UL = 1040) ABSOLUTE BASOPHILS (test code = 0.06 K/UL 1069) ABS IMMATURE GRANULOCYTES (test 0.04 K/UL code = 1020) ABS NUCLEATED RBCS (test code = 0.00 K/UL 86619) CBC W/AUTO [id number] 00:00:00 Test Item Value Reference Range Interpretation Comments WBC (test code = 1001) 9.7 K/UL RBC (test code = 1002) 4.61 M/UL HEMOGLOBIN (test code = 1003) 13.4 G/DL HEMATOCRIT (test code = 1004) 40.2 % MCV (test code = 1005) 87.2 fL MCH (test code = 1006) 29.1 PG MCHC (test code = 1007) 33.3 G/DL RDW (test code = 1038) 12.7 % NEUTROPHILS (test code = 1008) 63.5 % LYMPHOCYTES (test code = 1010) 24.2 % MONOCYTES (test code = 1011) 7.6 % EOSINOPHILS (test code = 1012) 3.7 % BASOPHILS (test code = 1013) 0.6 % IMMATURE GRANYLOCYTES (test 0.4 % code = 1036) NUCLEATED RBCS (test code = 0.0 /100WBC'S 1065) PLATELET COUNT (test code = 273 K/UL 1015) ABSOLUTE NEUTROPHILS (test code 6.13 K/UL = 1066) ABSOLUTE LYMPHOCYTES (test code 2.34 K/UL = 1067) ABSOLUTE MONOCYTES (test code = 0.73 K/UL 1068) ABSOLUTE EOSINOPHILS (test code 0.36 K/UL = 1040) ABSOLUTE BASOPHILS (test code = 0.06 K/UL 1069) ABS IMMATURE GRANULOCYTES (test 0.04 K/UL code = 1020) ABS NUCLEATED RBCS (test code = 0.00 K/UL 40541) CBC W/AUTO [id number] 00:00:00 Test Item Value Reference Range Interpretation Comments WBC (test code = 1001) 9.7 K/UL RBC (test code = 1002) 4.61 M/UL HEMOGLOBIN (test code = 1003) 13.4 G/DL HEMATOCRIT (test code = 1004) 40.2 % MCV (test code = 1005) 87.2 fL MCH (test code = 1006) 29.1 PG MCHC (test code = 1007) 33.3 G/DL RDW (test code = 1038) 12.7 % NEUTROPHILS (test code = 1008) 63.5 % LYMPHOCYTES (test code = 1010) 24.2 % MONOCYTES (test code = 1011) 7.6 % EOSINOPHILS (test code = 1012) 3.7 % BASOPHILS (test code = 1013) 0.6 % IMMATURE GRANYLOCYTES (test 0.4 % code = 1036) NUCLEATED RBCS (test code = 0.0 /100WBC'S 1065) PLATELET COUNT (test code = 273 K/UL 1015) ABSOLUTE NEUTROPHILS (test code 6.13 K/UL = 1066) ABSOLUTE LYMPHOCYTES (test code 2.34 K/UL = 1067) ABSOLUTE MONOCYTES (test code = 0.73 K/UL 1068) ABSOLUTE EOSINOPHILS (test code 0.36 K/UL = 1040) ABSOLUTE BASOPHILS (test code = 0.06 K/UL 1069) ABS IMMATURE GRANULOCYTES (test 0.04 K/UL code = 1020) ABS NUCLEATED RBCS (test code = 0.00 K/UL 78504) [id number] 00:00:00 Test Item Value Reference Range Interpretation Comments TSH, THIRD GENERATION (test code 0.756 UIU/ML = 2821) [id number] 00:00:00 Test Item Value Reference Range Interpretation Comments TSH, THIRD GENERATION (test code 0.756 UIU/ML = 2821) [id number] 00:00:00 Test Item Value Reference Range Interpretation Comments TSH, THIRD GENERATION (test code 0.756 UIU/ML = 2821) VITAMIN D, 25 [id number] 00:00:00 Test Item Value Reference Range Interpretation Comments VITAMIN D, 25 OH (test code = 4958) 10 NG/ML VITAMIN D, 25 [id number] 00:00:00 Test Item Value Reference Range Interpretation Comments VITAMIN D, 25 OH (test code = 4958) 10 NG/ML CBC W/AUTO [id number] 00:00:00 Test Item Value Reference Range Interpretation Comments WBC (test code = 1001) 9.7 K/UL RBC (test code = 1002) 4.61 M/UL HEMOGLOBIN (test code = 1003) 13.4 G/DL HEMATOCRIT (test code = 1004) 40.2 % MCV (test code = 1005) 87.2 fL MCH (test code = 1006) 29.1 PG MCHC (test code = 1007) 33.3 G/DL RDW (test code = 1038) 12.7 % NEUTROPHILS (test code = 1008) 63.5 % LYMPHOCYTES (test code = 1010) 24.2 % MONOCYTES (test code = 1011) 7.6 % EOSINOPHILS (test code = 1012) 3.7 % BASOPHILS (test code = 1013) 0.6 % IMMATURE GRANYLOCYTES (test 0.4 % code = 1036) NUCLEATED RBCS (test code = 0.0 /100WBC'S 1065) PLATELET COUNT (test code = 273 K/UL 1015) ABSOLUTE NEUTROPHILS (test code 6.13 K/UL = 1066) ABSOLUTE LYMPHOCYTES (test code 2.34 K/UL = 1067) ABSOLUTE MONOCYTES (test code = 0.73 K/UL 1068) ABSOLUTE EOSINOPHILS (test code 0.36 K/UL = 1040) ABSOLUTE BASOPHILS (test code = 0.06 K/UL 1069) ABS IMMATURE GRANULOCYTES (test 0.04 K/UL code = 1020) ABS NUCLEATED RBCS (test code = 0.00 K/UL 69436) CBC W/AUTO [id number] 00:00:00 Test Item Value Reference Range Interpretation Comments WBC (test code = 1001) 9.7 K/UL RBC (test code = 1002) 4.61 M/UL HEMOGLOBIN (test code = 1003) 13.4 G/DL HEMATOCRIT (test code = 1004) 40.2 % MCV (test code = 1005) 87.2 fL MCH (test code = 1006) 29.1 PG MCHC (test code = 1007) 33.3 G/DL RDW (test code = 1038) 12.7 % NEUTROPHILS (test code = 1008) 63.5 % LYMPHOCYTES (test code = 1010) 24.2 % MONOCYTES (test code = 1011) 7.6 % EOSINOPHILS (test code = 1012) 3.7 % BASOPHILS (test code = 1013) 0.6 % IMMATURE GRANYLOCYTES (test 0.4 % code = 1036) NUCLEATED RBCS (test code = 0.0 /100WBC'S 1065) PLATELET COUNT (test code = 273 K/UL 1015) ABSOLUTE NEUTROPHILS (test code 6.13 K/UL = 1066) ABSOLUTE LYMPHOCYTES (test code 2.34 K/UL = 1067) ABSOLUTE MONOCYTES (test code = 0.73 K/UL 1068) ABSOLUTE EOSINOPHILS (test code 0.36 K/UL = 1040) ABSOLUTE BASOPHILS (test code = 0.06 K/UL 1069) ABS IMMATURE GRANULOCYTES (test 0.04 K/UL code = 1020) ABS NUCLEATED RBCS (test code = 0.00 K/UL 20125) CBC W/AUTO [id number] 00:00:00 Test Item Value Reference Range Interpretation Comments WBC (test code = 1001) 9.7 K/UL RBC (test code = 1002) 4.61 M/UL HEMOGLOBIN (test code = 1003) 13.4 G/DL HEMATOCRIT (test code = 1004) 40.2 % MCV (test code = 1005) 87.2 fL MCH (test code = 1006) 29.1 PG MCHC (test code = 1007) 33.3 G/DL RDW (test code = 1038) 12.7 % NEUTROPHILS (test code = 1008) 63.5 % LYMPHOCYTES (test code = 1010) 24.2 % MONOCYTES (test code = 1011) 7.6 % EOSINOPHILS (test code = 1012) 3.7 % BASOPHILS (test code = 1013) 0.6 % IMMATURE GRANYLOCYTES (test 0.4 % code = 1036) NUCLEATED RBCS (test code = 0.0 /100WBC'S 1065) PLATELET COUNT (test code = 273 K/UL 1015) ABSOLUTE NEUTROPHILS (test code 6.13 K/UL = 1066) ABSOLUTE LYMPHOCYTES (test code 2.34 K/UL = 1067) ABSOLUTE MONOCYTES (test code = 0.73 K/UL 1068) ABSOLUTE EOSINOPHILS (test code 0.36 K/UL = 1040) ABSOLUTE BASOPHILS (test code = 0.06 K/UL 1069) ABS IMMATURE GRANULOCYTES (test 0.04 K/UL code = 1020) ABS NUCLEATED RBCS (test code = 0.00 K/UL 70210) [id number] 00:00:00 Test Item Value Reference Range Interpretation Comments TSH, THIRD GENERATION (test code 0.756 UIU/ML = 2821) [id number] 00:00:00 Test Item Value Reference Range Interpretation Comments TSH, THIRD GENERATION (test code 0.756 UIU/ML = 2821) [id number] 00:00:00 Test Item Value Reference Range Interpretation Comments TSH, THIRD GENERATION (test code 0.756 UIU/ML = 2821) VITAMIN D, 25 [id number] 00:00:00 Test Item Value Reference Range Interpretation Comments VITAMIN D, 25 OH (test code = 4958) 10 NG/ML VITAMIN D, 25 [id number] 00:00:00 Test Item Value Reference Range Interpretation Comments VITAMIN D, 25 OH (test code = 4958) 10 NG/ML CBC W/AUTO [id number] 00:00:00 Test Item Value Reference Range Interpretation Comments WBC (test code = 1001) 9.7 K/UL RBC (test code = 1002) 4.61 M/UL HEMOGLOBIN (test code = 1003) 13.4 G/DL HEMATOCRIT (test code = 1004) 40.2 % MCV (test code = 1005) 87.2 fL MCH (test code = 1006) 29.1 PG MCHC (test code = 1007) 33.3 G/DL RDW (test code = 1038) 12.7 % NEUTROPHILS (test code = 1008) 63.5 % LYMPHOCYTES (test code = 1010) 24.2 % MONOCYTES (test code = 1011) 7.6 % EOSINOPHILS (test code = 1012) 3.7 % BASOPHILS (test code = 1013) 0.6 % IMMATURE GRANYLOCYTES (test 0.4 % code = 1036) NUCLEATED RBCS (test code = 0.0 /100WBC'S 1065) PLATELET COUNT (test code = 273 K/UL 1015) ABSOLUTE NEUTROPHILS (test code 6.13 K/UL = 1066) ABSOLUTE LYMPHOCYTES (test code 2.34 K/UL = 1067) ABSOLUTE MONOCYTES (test code = 0.73 K/UL 1068) ABSOLUTE EOSINOPHILS (test code 0.36 K/UL = 1040) ABSOLUTE BASOPHILS (test code = 0.06 K/UL 1069) ABS IMMATURE GRANULOCYTES (test 0.04 K/UL code = 1020) ABS NUCLEATED RBCS (test code = 0.00 K/UL 63575) CBC W/AUTO [id number] 00:00:00 Test Item Value Reference Range Interpretation Comments WBC (test code = 1001) 9.7 K/UL RBC (test code = 1002) 4.61 M/UL HEMOGLOBIN (test code = 1003) 13.4 G/DL HEMATOCRIT (test code = 1004) 40.2 % MCV (test code = 1005) 87.2 fL MCH (test code = 1006) 29.1 PG MCHC (test code = 1007) 33.3 G/DL RDW (test code = 1038) 12.7 % NEUTROPHILS (test code = 1008) 63.5 % LYMPHOCYTES (test code = 1010) 24.2 % MONOCYTES (test code = 1011) 7.6 % EOSINOPHILS (test code = 1012) 3.7 % BASOPHILS (test code = 1013) 0.6 % IMMATURE GRANYLOCYTES (test 0.4 % code = 1036) NUCLEATED RBCS (test code = 0.0 /100WBC'S 1065) PLATELET COUNT (test code = 273 K/UL 1015) ABSOLUTE NEUTROPHILS (test code 6.13 K/UL = 1066) ABSOLUTE LYMPHOCYTES (test code 2.34 K/UL = 1067) ABSOLUTE MONOCYTES (test code = 0.73 K/UL 1068) ABSOLUTE EOSINOPHILS (test code 0.36 K/UL = 1040) ABSOLUTE BASOPHILS (test code = 0.06 K/UL 1069) ABS IMMATURE GRANULOCYTES (test 0.04 K/UL code = 1020) ABS NUCLEATED RBCS (test code = 0.00 K/UL 06862) CBC W/AUTO [id number] 00:00:00 Test Item Value Reference Range Interpretation Comments WBC (test code = 1001) 9.7 K/UL RBC (test code = 1002) 4.61 M/UL HEMOGLOBIN (test code = 1003) 13.4 G/DL HEMATOCRIT (test code = 1004) 40.2 % MCV (test code = 1005) 87.2 fL MCH (test code = 1006) 29.1 PG MCHC (test code = 1007) 33.3 G/DL RDW (test code = 1038) 12.7 % NEUTROPHILS (test code = 1008) 63.5 % LYMPHOCYTES (test code = 1010) 24.2 % MONOCYTES (test code = 1011) 7.6 % EOSINOPHILS (test code = 1012) 3.7 % BASOPHILS (test code = 1013) 0.6 % IMMATURE GRANYLOCYTES (test 0.4 % code = 1036) NUCLEATED RBCS (test code = 0.0 /100WBC'S 1065) PLATELET COUNT (test code = 273 K/UL 1015) ABSOLUTE NEUTROPHILS (test code 6.13 K/UL = 1066) ABSOLUTE LYMPHOCYTES (test code 2.34 K/UL = 1067) ABSOLUTE MONOCYTES (test code = 0.73 K/UL 1068) ABSOLUTE EOSINOPHILS (test code 0.36 K/UL = 1040) ABSOLUTE BASOPHILS (test code = 0.06 K/UL 1069) ABS IMMATURE GRANULOCYTES (test 0.04 K/UL code = 1020) ABS NUCLEATED RBCS (test code = 0.00 K/UL 65745) [id number] 00:00:00 Test Item Value Reference Range Interpretation Comments TSH, THIRD GENERATION (test code 0.756 UIU/ML = 2821) [id number] 00:00:00 Test Item Value Reference Range Interpretation Comments TSH, THIRD GENERATION (test code 0.756 UIU/ML = 2821) [id number] 00:00:00 Test Item Value Reference Range Interpretation Comments TSH, THIRD GENERATION (test code 0.756 UIU/ML = 2821) VITAMIN D, 25 [id number] 00:00:00 Test Item Value Reference Range Interpretation Comments VITAMIN D, 25 OH (test code = 4958) 10 NG/ML VITAMIN D, 25 [id number] 00:00:00 Test Item Value Reference Range Interpretation Comments VITAMIN D, 25 OH (test code = 4958) 10 NG/ML SARS-CoV-2 (COVID-19) by RT-PCR (HIGH RISK)2021-04-16 00:00:00 Test Item Value Reference Range Interpretation Comments SARS-CoV-2 INTERPRETATION NEGATIVE (test code = 40800) SOURCE (test code = 37375) NASOPHARYNGEAL SARS-CoV-2 (COVID-19) by RT-PCR (HIGH RISK)2021-04-16 00:00:00 Test Item Value Reference Range Interpretation Comments SARS-CoV-2 INTERPRETATION NEGATIVE (test code = 78485) SOURCE (test code = 26230) NASOPHARYNGEAL SARS-CoV-2 (COVID-19) by RT-PCR (HIGH RISK)2021-04-16 00:00:00 Test Item Value Reference Range Interpretation Comments SARS-CoV-2 INTERPRETATION NEGATIVE (test code = 64348) SOURCE (test code = 92305) NASOPHARYNGEAL SARS-CoV-2 (COVID-19) by RT-PCR (HIGH RISK)2021-04-16 00:00:00 Test Item Value Reference Range Interpretation Comments SARS-CoV-2 INTERPRETATION NEGATIVE (test code = 84770) SOURCE (test code = 58240) NASOPHARYNGEAL SARS-CoV-2 (COVID-19) by RT-PCR (HIGH RISK)2021-04-16 00:00:00 Test Item Value Reference Range Interpretation Comments SARS-CoV-2 INTERPRETATION NEGATIVE (test code = 63994) SOURCE (test code = 37915) NASOPHARYNGEAL SARS-CoV-2 (COVID-19) by RT-PCR (HIGH RISK)2021-04-16 00:00:00 Test Item Value Reference Range Interpretation Comments SARS-CoV-2 INTERPRETATION NEGATIVE (test code = 66962) SOURCE (test code = 25209) NASOPHARYNGEAL
--- NOTE | 2022-11-26 02:14 | EDPHYS ---
Physician Documentation [facility] Name: Caitlin Mcgovern Age: 27 yrs Sex: Female : 1995 Arrival Date: 11/26/2022 Time: 01:40 Bed 15 Private MD: ED Physician Jaxon Barboza HPI: 11/26 01:55 This 27 yrs old Female presents to ER via Unassigned with complaints of Cough. sp4 02:09 27-year-old female with no past significant medical problems presents for cute onset of sp4 nonproductive cough and sore throat starting 2 days ago, patient reports associated dyspnea, and pain on swallow. 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 - Social history:: Smoking status: Patient denies any tobacco usage or history of. - Family history:: not pertinent. ROS: 02:09 Constitutional: Negative for fever, chills, and weight loss, Eyes: Negative for injury, sp4 pain, redness, and discharge, ENT: Negative for injury, and discharge positive for sore throat positive for pain and sore positive for nonproductive cough Neck: Negative for injury, pain, and swelling, Cardiovascular: Negative for chest pain, palpitations, and edema, Respiratory: Negative for wheezing, and pleuritic chest pain, positive for shortness of breath and nonproductive cough Abdomen/GI: Negative for abdominal pain, nausea, vomiting, diarrhea, and constipation, Back: Negative for injury and pain, : Negative for injury, bleeding, discharge, and swelling, MS/Extremity: Negative for injury and deformity, Skin: Negative for injury, rash, and discoloration, Neuro: Negative for headache, weakness, numbness, tingling, and seizure, Psych: Negative for depression, anxiety, Allergy/Immunology: Negative for hives, rash, and allergies Endocrine: Negative for neck swelling, polydipsia, polyuria, polyphagia, and weight changes Hematologic/Lymphatic: Negative for swollen nodes, abnormal bleeding, and unusual bruising Exam: 02:09 Constitutional: This is a well developed, well nourished patient who is awake, alert, sp4 and in no acute distress. Head/Face: Normocephalic, atraumatic. Eyes: Pupils equal round and reactive to light, extra-ocular motions intact. Lids and lashes normal. Conjunctiva and sclera are not injected. Cornea within normal limits. Periorbital areas with no swelling, redness, or edema. ENT: Nares patent. No nasal discharge, no septal abnormalities noted. Tympanic membranes are normal and external auditory canals are clear. Mild pharyngeal erythema bilaterally without exudates, strawberry tongue present Neck: Trachea midline, no thyromegaly or masses palpated, and no cervical lymphadenopathy. Supple, full range of motion without nuchal rigidity, or vertebral point tenderness. No Meningismus. Chest/axilla: Normal chest wall appearance and motion. Nontender with no deformity. No lesions are appreciated. Cardiovascular: Regular rate and rhythm with a normal S1 and S2. No gallops, murmurs, or rubs. Normal PMI, no JVD. No pulse deficits. Respiratory: Lungs have equal breath sounds bilaterally, clear to auscultation and percussion. No rales, rhonchi or wheezes noted. No increased work of breathing, no retractions or nasal flaring. Abdomen/GI: Soft, non-tender, with normal bowel sounds. No distension or tympany. No guarding or rebound. No evidence of tenderness throughout. Back: No spinal tenderness. No costovertebral tenderness. Skin: Warm, dry with normal turgor. Normal color with no rashes, no lesions, and no evidence of cellulitis. MS/ Extremity: Pulses equal, no cyanosis. Neurovascular intact. Full, normal range of motion. Neuro: Awake and alert, GCS 15, oriented to person, place, time, and situation. Cranial nerves II-XII grossly intact. Motor strength 5/5 in all extremities. Sensory grossly intact. Psych: Awake, alert, with orientation to person, place and time. Behavior, mood, and affect are within normal limits Vital Signs: 01:53 BP 122 / 83; Pulse 85; Resp 18 S; Temp 98.5(O); Pulse Ox 100% on R/A; Weight 80.74 kg as6 (R); Height 4 ft. 11 in. (R); Pain 7/10; 01:53 Body Mass Index 35.95 (80.74 kg, 149.86 cm) as6 01:53 Pain Scale: Adult as6 MDM: 02:08 Patient medically screened. sp4 02:09 Differential Diagnosis: Bronchitis Influenza Upper Respiratory Infection Sinusitis sp4 Pharyngitis Otitis Media Allergic Rhinitis Asthma Exacerbation Viral Syndrome. Data reviewed: vital signs, nurses notes. ED course: Patient has had a percent oxygen saturation on room air, normal lung sounds, mild pharyngeal erythema, most likely either viral or bacterial bronchitis depending on etiology Will prescribe as needed medications also will prescribe p.o. Zithromax.. Administered Medications: 02:20 Drug: Acetaminophen-Codeine PO (300 mg-30 mg) 2 tabs Route: PO; lg3 02:23 Follow up: Response: No adverse reaction ll3 02:20 Drug: AZITHromycin PO 500 mg Route: PO; lg3 02:23 Follow up: Response: No adverse reaction ll3 02:20 Drug: Promethazine PO 25 mg Route: PO; lg3 02:23 Follow up: Response: No adverse reaction ll3 02:20 Drug: Ibuprofen PO 800 mg Route: PO; lg3 02:23 Follow up: Response: No adverse reaction ll3 Disposition Summary: 11/26/22 02:12 Discharge Ordered Location: Home sp4 Problem: new sp4 Symptoms: have improved sp4 Condition: Stable sp4 Diagnosis - Acute bronchitis, unspecified sp4 - Acute pharyngitis, unspecified sp4 Followup: sp4 - With: Private Physician - When: As needed - Reason: Discharge Instructions: - Discharge Summary Sheet sp4 - Acute Bronchitis, Adult sp4 Forms: - Thank You Letter sp4 - Antibiotic Education sp4 Prescriptions: - Zithromax Z-Nahum 250 mg Oral Tablet - take 1 tablet by ORAL route as directed for 5 days Day 1 - take two (2) tablets sp4 one time. Day 2, 3, 4 , 5 take one (1) tablet once daily.; 6 tablet; Refills: 0, Product Selection Permitted - promethazine 25 mg Oral Tablet - take 1 tablet by ORAL route every 6 hours As needed PRN nausea; 30 tablet; sp4 Refills: 0, Product Selection Permitted Signatures: Ju Garcia RN RN lg3 Luis Alfredo Lopez RN RN as6 Jaxon Barboza MD MD sp4 Maryanne Arriaga RN ll3 Corrections: (The following items were deleted from the chart) 01:57 01:57 PMHx: Kidney stone; as6 as6
--- NOTE | 2022-11-26 02:14 | ER ---
Nurse's Notes [facility] Name: Caitlin Mcgovern Age: 27 yrs Sex: Female : 1995 Arrival Date: 11/26/2022 Time: 01:40 Bed 15 Private MD: Diagnosis: Acute bronchitis, unspecified;Acute pharyngitis, unspecified Presentation: 11/26 01:55 Chief complaint: Patient states: "I've had this cough for a couple days and tonight I as6 woke up coughing and I feel like I can't catch my breath". Coronavirus screen: At this time, the client does not indicate any symptoms associated with coronavirus-19. Ebola Screen: No symptoms or risks identified at this time. Initial Sepsis Screen: Does the patient meet any 2 criteria? No. Patient's initial sepsis screen is negative. Does the patient have a suspected source of infection? No. Patient's initial sepsis screen is negative. Risk Assessment: Do you want to hurt yourself or someone else? Patient reports no desire to harm self or others. Onset of symptoms was November 24, 2022. 01:55 Acuity: PRERNA 4 as6 01:55 Method Of Arrival: Ambulatory as6 Triage Assessment: 01:53 General: Appears in no apparent distress. comfortable, Behavior is calm, cooperative. as6 Pain: Complains of pain in chest. Respiratory: Reports cough that is non-productive, dry, hacking. 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 - Social history:: Smoking status: Patient denies any tobacco usage or history of. - Family history:: not pertinent. Screenin:57 [facility] ED Fall Risk Assessment (Adult) History of falling in the last 3 months, ll3 including since admission No falls in past 3 months (0 pts) Confusion or Disorientation No (0 pts) Intoxicated or Sedated No (0 pts) Impaired Gait No (0 pts) Mobility Assist Device Used No (0 pt) Altered Elimination No (0 pt) Score/Fall Risk Level 0 - 2 = Low Risk Oriented to surroundings, Maintained a safe environment, Educated pt \\T\\ family on fall prevention, incl call for assistance when getting out of bed. Abuse screen: Denies threats or abuse. Denies injuries from another. Nutritional screening: No deficits noted. Tuberculosis screening: No symptoms or risk factors identified. 01:58 [facility] ED Fall Risk Assessment (Adult) Score/Fall Risk Level 0 - 2 = Low Risk. Abuse as6 screen: Denies threats or abuse. Denies injuries from another. Nutritional screening: No deficits noted. Tuberculosis screening: No symptoms or risk factors identified. Assessment: 01:57 General: Appears uncomfortable, Behavior is calm, cooperative. Neuro: Level of ll3 Consciousness is awake, alert, obeys commands, Oriented to person, place, time, situation. Respiratory: Reports cough that is persistent since last saturday Respiratory effort is even, unlabored, Respiratory pattern is regular, symmetrical. Derm: Skin is pink, warm \\T\\ dry. 02:23 Reassessment: Patient appears in no apparent distress at this time. No changes from ll3 previously documented assessment. Patient and/or family updated on plan of care and expected duration. Pain level reassessed. Patient is alert, oriented x 3, equal unlabored respirations, skin warm/dry/pink. Vital Signs: 01:53 BP 122 / 83; Pulse 85; Resp 18 S; Temp 98.5(O); Pulse Ox 100% on R/A; Weight 80.74 kg as6 (R); Height 4 ft. 11 in. (R); Pain 7/10; 01:53 Body Mass Index 35.95 (80.74 kg, 149.86 cm) as6 01:53 Pain Scale: Adult as6 ED Course: 01:41 Patient arrived in ED. jj6 01:53 Arm band placed on. as6 01:55 Jaxon Barboza MD is Attending Physician. sp4 01:56 Triage completed. as6 01:57 Bed in low position. Call light in reach. as6 02:23 Maryanne Arriaga RN is Primary Nurse. ll3 02:24 No provider procedures requiring assistance completed. Patient did not have IV access ll3 during this emergency room visit. Administered Medications: 02:20 Drug: Acetaminophen-Codeine PO (300 mg-30 mg) 2 tabs Route: PO; lg3 02:23 Follow up: Response: No adverse reaction ll3 02:20 Drug: AZITHromycin PO 500 mg Route: PO; lg3 02:23 Follow up: Response: No adverse reaction ll3 02:20 Drug: Promethazine PO 25 mg Route: PO; lg3 02:23 Follow up: Response: No adverse reaction ll3 02:20 Drug: Ibuprofen PO 800 mg Route: PO; lg3 02:23 Follow up: Response: No adverse reaction ll3 Medication: 02:24 VIS not applicable for this client. ll3 Outcome: 02:12 Discharge ordered by . sp4 02:24 Discharged to home ambulatory. ll3 02:24 Condition: stable 02:24 Discharge instructions given to patient, Instructed on discharge instructions, follow up and referral plans. medication usage, Demonstrated understanding of instructions, follow-up care, medications, Prescriptions given X 2. 02:24 Patient left the ED. ll3 Signatures: Ju Garcia RN RN lg3 Vianca Kleinj6 Luis Alfredo Lopez RN RN as6 Maryanne Arriaga RN RN ll3 Jaxon Barboza MD MD sp4 Corrections: (The following items were deleted from the chart) 01:57 01:57 PMHx: Kidney stone; as6 as6
[2022-11-26] MEDS ORDERED: CODEINE 30MG/APAP 300MG TAB ONE (02:22)
[2022-11-26] MEDS ORDERED: PROMETHAZINE 25 MG TABLET ONE (02:22)
[2022-11-26] MEDS ORDERED: IBUPROFEN 400 MG TAB ONE (02:23)
[2022-11-26] MEDS ORDERED: AZITHROMYCIN 250 MG TAB ONE (02:23)
[2022-11-26 02:33] VITALS: BP 122/83; TEMP 98.5; O2SAT 100
== END 2022-11-26 02:24 | disposition home or self-care (01) ==
LOC: ER 01:40
DX: J20.9 Acute bronchitis, unspecified (principal); J02.9 Acute pharyngitis, unspecified; Z88.0 Allergy status to penicillin
CPT/HCPCS: 99283; Q0169

== ENCOUNTER 2023-05-21 08:13 | Emergency (ER) | payer SELFPAY ==
[2012-03-16 17:46] VITALS: BP 115/74
--- OUTSIDE RECORDS SUMMARY | 2023-05-21 08:18 | XMS REPORT | Continuity of Care Document ---
:1995 Author Organization [facility] Address [address] [facility] [place] [address] Care Team Providers Name Role Phone [facility] Primary Care P hysician Unavailable Pgy3 Attending Clinician Unavailable Rosemary Lau Attending Clinician [phone] ROSEMARY HOLLOWAY Attending Clinician Unavailable [facility] Attending Clinician Unavailable ANJEL BRASWELL Attending Clinician Unavailable Marta RUDOLPH, Sridevi Barclay Attending Clinician Anjel Braswell NP Attending Clinician MICAH DOWNS Attending Clinician Unavailable Micah Downs MD Attending Clinician HONEY ZARAGOZA Attending Clinician Unavailable Honey Zaragoza APN Attending Clinician Doctor Unassigned, [place] Attending Clinician Unavailable Kvng Wilkinson Attending Clinician DEEPA QUINONES Attending Clinician Unavailable Deepa Singer Attending Clinician Betsy Clay Attending Clinician ANJEL BRASWELL Admitting Clinician Unavailable HONEY ZARAGOZA Admitting Clinician Unavailable DEEPA QUINONES Admitting Clinician Unavailable Payers Payer Name Policy Type Policy Number Effective Date Expiration Date Iman sun [facility] [id number] 2016 CHOICE MEDICAID 00:00:00 [facility] [id number] 2021 00:00:00 Problems Condition Condition Condition Status Onset Resolution Last Treating Co mments Source Name Details Category Date Date Treatment Clinician Date Other Other Disease Active Univers general general 6-10 [place] of [place] and advice 00 [place] dical for for Branch contracept contracept cuca cuca management management Obesity Obesity Disease Active Univers (BMI (BMI 6-10 ity of 30-39.9) 30-39.9) 00:00: [place] 00 Medical Branch Ovarian Ovarian Disease Active Univers cyst cyst 6-10 ity of 00:00: [place] 00 Medical [place] Depression Depression Disease Active U nivers , [...] Source Exposure to 2022-03-26 2022-04-05 Not sure [facility] SARS-CoV-2 00:00:00 16:06:00 [facility] (event) Branch Alcohol intake 2022-04-05 2022-04-05 Current University of 00:00:00 00:00:00 non-drinker of [facility] alcohol (finding) Branch Tobacco use and 2022-02-22 2022-02-22 Smokeless tobacco Un iversity of exposure 00:00:00 00:00:00 non-user [facility] Sex Assigned At [birth year] Universit y of 00:00:00 00:00:00 [facility] Smoking Status Start Date Stop Date Source Never smoked tobacco [facility] Medications Ordered Filled Start Stop Current Ordering Indication Dosage Frequency Signature Comments Components Source Medication Medication Date Date Medication? Clinician (SIG) Name Name levonorgest Yes [id number] 1{tbl} Take 1 Univers rel-ethinyl 9-08 tablet by ity of estradiol [place] (SR[place] 00 the Medical 0.1-20 morning. Branch mg-mcg per tablet levonorgest Yes [id number] 1{tbl} Take 1 Univers rel-ethinyl 9-08 tablet by [place] of estradiol [place] (SR[place] 00 the Medical 0.1-20 morning. Branch mg-mcg per tablet levonorgest Yes [id number] 1{tbl} Take 1 Univers rel-ethinyl 9-08 tablet by [place] of estradiol [place] (SRONYX[place] 00 the Medical 0.1-20 morning. Branch mg-mcg per tablet ondansetron Yes [id number] 4mg Take 1 Univers 4 mg 6-25 tablet by ity of disintegrat 00:00: mouth [place] ing tablet 00 every 8 Medica l (eight) Branch hours as needed for Nausea and Vomiting (N/V). proMETHazin Yes [id number] 25mg Take 1 Univers e 25 mg 6-25 tablet by ity of tablet 00:00: mouth [place] 00 every 8 Medical (eight) Branch hours as needed for N/V unresponsi ve to Ondansetro n. ondansetron Yes [id number] 4mg Take 1 Univers 4 mg 6-25 tablet by ity of disintegrat 00:00: mouth [place] ing tablet 00 every 8 Medica l (eight) Branch hours as needed for Nausea and Vomiting (N/V). proMETHazin Yes [id number] 25mg Take 1 Univers e 25 mg 6-25 tablet by ity of tablet 00:00: mouth [place] 00 every 8 Medical (eight) Branch hours as needed for N/V unresponsi ve to Ondansetro n. ondansetron Yes [id number] 4mg Take 1 Univers 4 mg 6-25 tablet by ity of disintegrat 00:00: mouth [place] ing tablet 00 every 8 Medica l (eight) Branch hours as needed for Nausea and Vomiting (N/V). proMETHazin 2021-0 Yes [id number] 25mg Take 1 Univers e 25 mg [...] 2021-0 No Unknown 01-12 00:00: 00 medroxyPROG 2-0 2- No [id number] 150mg Univers ESTERone 6-10 -25 [id number] ity of (DEPO-PROVE 21:00: 21:59 [place] RA) 00 :00 Medical injection Branch 150 mg medroxyPROG 2-0 2022- No [id number] 150mg Univers ESTERone 6-10 11-25 [id number] ity of (DEPO-PROVE 21:00: 21:59 [place] RA) 00 :00 Medical injection Branch 150 mg medroxyPROG 2022-0 2- No [id number] 150mg Univers ESTERone 6-10 11-25 [id number] ity of (DEPO-PROVE 21:00: 21:59 [place] RA) 00 :00 Medical injection Branch 150 [...] (scale 4-6). Indication s: acute pain acetaminoph 2021-0 Yes [id number] 1{tbl} Take 1 [...] Dose 2-0 No Unknown 6-05 00:00: 00 TAKE 2 [...] 800 mg 6-02 tablet 00:00: 00 Dose 2-0 No Unknown 6-02 [...] unit) (50,000 00:00: unit) 00 capsule Dose 2022-0 No Unknown 1-04 00:00: 00 Dose 2022-0 [...] mg-10 mg/5 00:00: mL oral 00 syrup Vital Signs Vital Name Observation Time Observation Value Comments Source Systolic blood 2022-04-05 21:06:00 133 mm[Hg] Univer sity of pressure [facility] Diastolic blood 2022-04-05 21:06:00 83 mm[Hg] Unive rsity of [facility] Heart rate 2022-04-05 21:06:00 86 /min [facility] Body temperature 2022-04-05 21:06:00 36.78 Kaylee [facility] Res[facility] rate 2022-04-05 21:06:00 18 /min [facility] Body height 2022-04-05 21:06:00 149.9 cm [facility] Body weight 2022-04-05 21:06:00 77.338 kg [facility] BMI 2022-04-05 21:06:00 34.44 kg/m2 [facility] BP Systolic 2022-07-06 09:20:00 127 mm[Hg] [...] Goal Plan of Care Note [code = 18882-9] Goal Plan of Care Note [code = 34888-3] Goal Plan of Care Note [code = 12345-4] Goal Plan of Care Note [code = 83816-6] Goal Plan of Care Note [code = 67327-5] Goal Plan of Care Note [code = 92729-7] Goal Plan of Care Note [code = 94922-4] Goal Plan of Care Note [code = 61163-9] Goal Plan of Care Note [code = 02011-0] Goal Plan of Care Note [code = 88139-6] Goal Plan of Care Note [code = 85735-5] Goal Plan of Care Note [code = 14223-4] Goal Plan of Care Note [code = 02473-1] Goal Plan of Care Note [code = 52151-5] Goal Plan of Care Note [code = 96212-9] Goal Plan of Care Note [code = 65320-7] Goal Plan of Care Note [code = 33996-5] Goal Plan of Care Note [code = 29139-6] Goal Plan of Care Note [code = 62690-4] Goal Plan of Care Note [code = 96813-9] Goal Plan of Care Note [code = 55340-1] Goal Plan of Care Note [code = 10943-3] Goal Plan of Care Note [code = 63185-1] Goal Plan of Care Note [code = 84169-7] Goal Plan of Care Note [code = 88404-6] Goal Plan of Care Note [code = 61037-4] Goal Plan of Care Note [code = 65139-0] Goal Plan of Care Note [code = 77139-0] Goal Plan of Care Note [code = 68016-9] Goal Plan of Care Note [code = 38380-5] Goal Plan of Care Note [code = 53372-9] Goal Plan of Care Note [code = 81166-2] Goal Plan of Care Note [code = 35049-1] Goal Plan of Care Note [code = 03554-7] Goal Plan of Care Note [code = 50120-9] Goal Plan of Care Note [code = 82327-2] Goal Plan of Care Note [code = 46547-3] Goal Plan of Care Note [code = 30838-6] Goal Plan of Care Note [code = 67836-9] Goal Plan of Care Note [code = 60875-0] Goal Plan of Care Note [code = 62192-2] Goal Plan of Care Note [code = 77550-5] Goal Plan of Care Note [code = 45739-3] Goal Plan of Care Note [code = 13207-2] Goal Plan of Care Note [code = 05295-5] Goal Plan of Care Note [code = 36792-6] Goal Plan of Care Note [code = 85186-5] Goal Plan of Care Note [code = 11959-2] Goal Plan of Care Note [code = 83781-3] Goal Plan of Care Note [code = 92576-3] Goal Plan of Care Note [code = 43212-9] Goal Plan of Care Note [code = 39615-3] Goal Plan of Care Note [code = 48906-0] Goal Plan of Care Note [code = 97807-0] Goal Plan of Care Note [code = 06040-1] Goal Plan of Care Note [code = 93802-0] Goal Plan of Care Note [code = 83356-8] Goal Plan of Care Note [code = 04334-2] Goal Plan of Care Note [code = 92266-6] Goal Plan of Care Note [code = 26108-1] Goal Plan of Care Note [code = 54156-9] Goal Plan of Care Note [code = 76326-2] Goal Plan of Care Note [code = 48864-2] Goal Plan of Care Note [code = 47604-1] Goal Plan of Care Note [code = 06936-1] Goal Plan of Care Note [code = 88573-2] Goal Plan of Care Note [code = 80993-8] Goal Plan of Care Note [code = 47975-4] Goal Plan of Care Note [code = 41328-0] Goal Plan of Care Note [code = 99469-4] Goal Plan of Care Note [code = 90070-5] Goal Plan of Care Note [code = 49705-0] Goal Plan of Care Note [code = 68119-4] Goal Plan of Care Note [code = 62720-0] Goal Plan of Care Note [code = 17864-6] Goal Plan of Care Note [code = 50009-2] Goal Plan of Care Note [code = 33803-0] Goal Plan of Care Note [code = 11105-8] Goal Plan of Care Note [code = 33310-5] Goal Plan of Care Note [code = 82700-8] Goal Plan of Care Note [code = 14655-0] Goal Plan of Care Note [code = 23636-1] Goal Plan of Care Note [code = 88890-7] Goal Plan of Care Note [code = 18657-0] Goal Plan of Care Note [code = 21886-6] Encounters Start End Encounter Admission Attending Care Care Encounter Source Date/Time Date/Time Type Type Clinicians Facility Department ID 2021-05-29 Emergency [facility] [id number] Univers 10:37:03 [facility] 2021-05-26 Emergency [facility] [id number] Univers 08:50:48 [facility] 2023-02-20 2023-02-20 Outpatient SFA SFA [id number] Kt 10:06:10 10:06:10 07 [facility] 2023-02-18 2023-02-18 Outpatient SFA SFA [id number] Kt 09:19:11 09:19:11 07 F [place] 2023-02-12 2023-02-12 Outpatient SFA SFA [id number] Kt 13:46:22 13:46:22 0718 F [place] 2022-12-05 2022-12-05 Outpatient SFA SFA [id number] Kt 14:53:11 14:53:11 0510 [facility] 2022-09-05 2022-09-05 Outpatient SFA SFA [id number] Kt 15:17:08 15:17:08 0208 F [place] 2022-08-20 2022-08-20 Outpatient SFA SFA [id number] Kt 14:27:04 14:27:04 0123 F [place] 2022-07-06 2022-07-06 Outpatient SFA SFA [id number] Kt 09:04:26 09:04:26 1209 [facility] 2022-07-06 2022-07-06 Outpatient [id number] 00:00:00 00:00:00 Visit qx17-5aa4 b33-3pu2-z -m21q-355 03a-2828de 8taedr6a6 cca2e3 2022-05-11 2022-05-11 Outpatient R [facility] [id number] Univers 15:15:00 15:15:00 [facility] 2022-05-01 2022-05-01 Telephone Pgy3 UNIVERSIT 1.2.840.114 [id number] Univers 00:00:00 00:00:00 Y HEALTH 350.1.13.10 i ty of [facility] [place] [phone] [address] 2022-04-30 2022-04-30 Telephone Amie [facility] 1.2.840.114 [id number] Univers 00:00:00 00:00:00 Rosemary C FIRE ALARM MECHANIC 350.1.13.10 ity of [facility] 4.2.7.2.686 [place] MATERNAL [phone] [facility] & CHILD [address] [place] [address] 2022-04-11 2022-04-11 Outpatient [id number] qkk7yn-9 00:00:00 00:00:00 Visit 4167-4b3b 167-4b3b-9 -925c-6f5 25c-6f55a8 4k9nn091c lp293u 2022-04-05 2022-04-05 Outpatient R AMIE [facility] [id number] Univers 15:45:00 16:25:00 ROSEMARY parrish [facility] 2022-04-05 2022-04-05 Office [facility] [id number] [id number] Univers 15:45:00 16:25:00 Visit Rosemary Fournier FIRE ALARM MECHANIC 350.1.13.10 ity of [facility] 4.2.7.2.686 [place] MATERNAL [phone] [facility] & CHILD [address] [place] [address] 2022-04-05 2022-04-05 Outpatient R AMIE [facility] [id number] Univers 15:45:00 16:25:00 ROSEMARY taylor f [facility] 2022-03-30 2022-03-30 Nurse Visit, Kuldeep-Rmchp Nurse [facility] 1.2 .840.114 [id number] Univers 13:00:00 13:15:00 Visit Rosemary Holloway FIRE ALARM MECHANIC 350.1.13. 10 ity of [facility] 4.2.7.2.686 [place] MATERNAL [phone] [facility] ical & CHILD [address] [place], [place] [address] 2022-03-30 2022-03-30 Outpatient R [facility] [id number] Univers 13:00:00 13:00:00 ity [facility] 2022-03-30 2022-03-30 Outpatient R [facility] [id number] Univers 13:00:00 13:00:00 ity [facility] 2022-03-30 2022-03-30 Outpatient R AMIE, [facility] [id number] Univers 13:00:00 13:00:00 ROSEMARY milena o f [facility] 2022-03-15 2022-03-15 Emergency X [facility] ERT [id number] Univers 10:24:00 14:46:00 ANJEL sonia [facility] 2022-03-15 2022-03-15 Emergency Sridevi Lozano [facility] 1.2.840 .114 [id number] Univers 10:24:00 14:46:00 Anjel Braswell [place] [facility].10 [facility] 4.2.7.2.686 [facility] [id number] [facility] [address] [place] 2022-03-14 2022-03-14 Outpatient [id number] 00:00:00 00:00:00 Visit 92e1-3u3t 8c4-3s3x-k -a1r5-cu5 6q0-ba574l [id number] 2374ac 2022-03-14 2022-03-14 Telephone Pgy3 UNIVERSIT 1.2.840.114 [id number] Univers 00:00:00 00:00:00 [facility] 350.1.13.10 i ty [facility] 4.2.7.2.686 [facility] [phone] [facility] [address] Branch 2022-02-22 2022-02-22 Outpatient Javier DOWNS [facility] [id number] Univers 13:30:00 14:52:16 MICAH ity [facility] 2022-02-22 2022-02-22 Office Pgy3 UNIVERSIT 1.2.308.820 [id number] Univers 13:30:00 14:52:16 Visit Micah Downs [facility] 350.1.13.10 ity of [facility] 4.2.7.2.[place] [id number] [facility] 113 Branch 2022-02-22 2022-02-22 Outpatient R CHON [facility] [id number] Univers 13:30:00 14:52:16 MICAH [facility] 2022-01-22 2022-01-22 Office [facility] 1.2.644.399 [id number] Univers 14:45:00 15:58:53 Visit Rosemary Fournier FIRE ALARM MECHANIC 350.1.13.10 ity of [facility] 4.2.7.2.686 [place] MATERNAL [phone] Med ical & CHILD [address] [place] [address] 2022-01-22 2022-01-22 [facility] [id number] Univers 14:45:00 15:58:53 ROSEMARY abbott o [facility] 2022-01-22 2022-01-22 [facility] [id number] Univers 14:45:00 14:45:00 ROSEMARY abbott o [facility] 2022-01-20 2022-01-20 Emergency X [facility] ERT [id number] Univers 16:50:00 20:47:00 HONEY abbott [facility] 2022-01-20 2022-01-20 Emergency [facility] 1.2.210.929 [id number] Univers 16:50:00 20:47:00 Honey [facility] 350.1.13.10 [facility] [place] [phone] [facility] [address] [place] 2022-01-20 2022-01-20 Emergency X [facility] ERT [id number] Univers 16:50:00 20:47:00 HONEY abbott [facility] 2022-01-05 2022-01-05 Office [facility] 1.2.783.786 [id number] Univers 15:00:00 16:11:30 Visit Rosemary Fournier FIRE ALARM MECHANIC 350.1.13.10 ity of [facility] 4.2.7.2.686 [place] MATERNAL [id number] [facility] & CHILD [address] [place] [address] 2022-01-05 2022-01-05 Outpatient R [facility] [id number] Univers 15:00:00 16:11:30 ROSEMARY ity o f [facility] 2022-01-05 2022-01-05 Outpatient R [facility] [id number] Univers 15:00:00 15:00:00 ROSEMARY ity o f [facility] 2022-01-05 2022-01-05 Orders Doctor MUSA 1.2.840.114 [id number] Univers 00:00:00 00:00:00 Only Unassigned, INGRID 350.1.13.10 ity of [place] [facility] 4.2.7.2.686 [place] as [id number] [address] 2022-01-04 2022-01-04 Mik [facility] 1.2.285.194 [id number] Univers 00:00:00 00:00:00 Kvng Herrera FIRE ALARM MECHANIC 350.1.13.10 ity of [facility] 4.2.7.2.686 [place] MATERNAL [id number] [facility] & CHILD [address] [place] [address] 2022-01-03 2022-01-03 Emergency X [facility] ERT [id number] Univers 17:41:00 19:42:00 DEEPA it y of [facility] 2022-01-03 2022-01-03 Emergency [facility] [id number] Univers 17:41:00 19:42:00 [facility] [place] 350.1.13.10 ity of [place] 4.2.7.2.686 [place] [facility] [phone] [facility] [address] [place] 2022-01-03 2022-01-03 Orders Doctor MUSA 1.2.840.114 [id number] Univers 00:00:00 00:00:00 Only Unassigned, INGRID 350.1.13.10 ity of [place] [facility] 4.2.7.2.686 [place] as [phone] [address] 2021-12-29 2021-12-29 Orders Doctor MUSA 1.2.840.114 [id number] Univers 00:00:00 00:00:00 Only Unassigned, INGRID 350.1.13.10 ity of [place] [facility] 4.2.7.2.686 [place] as [id number] [address] 2021-02-19 2021-02-19 Emergency [facility], [facility] 1.2.840.114 [id number] Univers 17:49:00 18:37:00 Betsy Burgess Rene 350.1.13.10 ity of [place] 4.2.7.2.686 [facility] [phone] [address] 2021-02-19 2021-02-19 Orders Doctor MUSA 1.2.840.114 [id number] Univers 00:00:00 00:00:00 Only Unassigned, INGRID 350.1.13.10 ity of [place] [facility] 4.2.7.2.686 [place] as [id number] [address] 2020-02-21 2020-02-[address] [facility], [facility] 1.2.248.264 [id number] 13:53:23 17:03:00 Anjel Calabrese Rene 350.1.13.10 [place] 4.2.7.2.686 [place] [id number] [facility] 2020-02-21 2020-02-[address] [facility], [facility] 1.2.883.671 [id number] [facility] 13:53:23 17:03:00 Anjel Calabrese Rene 350.1.13.10 ity of [place] 4.2.7.2.686 [facility] [phone] [address] Results Test Description Test Time Test Comments [...] LESS OTHERWISE INDICATED, ALL TESTING PERFORMED ATCLINICAL PATH [employer] [address] [place] [address] LABORATORY DIRE CTOR: JULIA PERALES M.D. CLIA NUMBER [id number] [facility] [place]. [id number] TSH, THIRD [id number] 06:15:03 Test Item Value Reference Range Interpretation Comments TSH, THIRD GENERATION (test code 0.756 UIU/ML 0.400-4.100 = 2821) CBC W/AUTO DIFF WITH [id number] 01:35:29 Test Item Value Reference Range Interpretation [...] RBCS 0.00 K/UL 0.00-0.11 (test code = 89875) CBC W/AUTO [id number] 00:00:00 Test Item Value Reference Range Interpretation [...] NUCLEATED RBCS (test code = 0.00 K/UL 76259) CBC W/AUTO [id number] 00:00:00 Test Item Value Reference Range Interpretation [...] NUCLEATED RBCS (test code = 0.00 K/UL 78810) CBC W/AUTO [id number] 00:00:00 Test Item Value Reference Range Interpretation [...] NUCLEATED RBCS (test code = 0.00 K/UL 31282) [id number] 00:00:00 Test Item Value Reference Range Interpretation Comments TSH, THIRD GENERATION (test code 0.756 UIU/ML = 2821) [id number] 00:00:00 Test Item Value Reference Range Interpretation Comments TSH, THIRD GENERATION (test code 0.756 UIU/ML = 2821) [id number] 00:00:00 Test Item Value Reference Range Interpretation Comments TSH, THIRD GENERATION (test code 0.756 UIU/ML = 2821) VITAMIN D, 25 [id number] 00:00:00 Test Item Value Reference Range Interpretation Comments VITAMIN D, 25 [place] (test code = 4958) 10 NG/ML VITAMIN D, 25 [id number] 00:00:00 Test Item Value Reference Range Interpretation Comments VITAMIN D, 25 [place] (test code = 4958) 10 NG/ML CBC W/AUTO [id number] 00:00:00 Test Item Value Reference Range Interpretation [...] NUCLEATED RBCS (test code = 0.00 K/UL 31715) CBC W/AUTO [id number] 00:00:00 Test Item Value Reference Range Interpretation [...] NUCLEATED RBCS (test code = 0.00 K/UL 14438) CBC W/AUTO [id number] 00:00:00 Test Item Value Reference Range Interpretation [...] NUCLEATED RBCS (test code = 0.00 K/UL 55254) [id number] 00:00:00 Test Item Value Reference Range Interpretation Comments TSH, THIRD GENERATION (test code 0.756 UIU/ML = 2821) [id number] 00:00:00 Test Item Value Reference Range Interpretation Comments TSH, THIRD GENERATION (test code 0.756 UIU/ML = 2821) [id number] 00:00:00 Test Item Value Reference Range Interpretation Comments TSH, THIRD GENERATION (test code 0.756 UIU/ML = 2821) VITAMIN D, 25 [id number] 00:00:00 Test Item Value Reference Range Interpretation Comments VITAMIN D, 25 [place] (test code = 4958) 10 NG/ML VITAMIN D, 25 [id number] 00:00:00 Test Item Value Reference Range Interpretation Comments VITAMIN D, 25 [place] (test code = 4958) 10 NG/ML CBC W/AUTO [id number] 00:00:00 Test Item Value Reference Range Interpretation [...] NUCLEATED RBCS (test code = 0.00 K/UL 33809) CBC W/AUTO [id number] 00:00:00 Test Item Value Reference Range Interpretation [...] NUCLEATED RBCS (test code = 0.00 K/UL 23813) CBC W/AUTO [id number] 00:00:00 Test Item Value Reference Range Interpretation [...] NUCLEATED RBCS (test code = 0.00 K/UL 59869) [id number] 00:00:00 Test Item Value Reference Range Interpretation Comments TSH, THIRD GENERATION (test code 0.756 UIU/ML = 2821) [id number] 00:00:00 Test Item Value Reference Range Interpretation Comments TSH, THIRD GENERATION (test code 0.756 UIU/ML = 2821) [id number] 00:00:00 Test Item Value Reference Range Interpretation Comments TSH, THIRD GENERATION (test code 0.756 UIU/ML = 2821) VITAMIN D, 25 [id number] 00:00:00 Test Item Value Reference Range Interpretation Comments VITAMIN D, 25 [place] (test code = 4958) 10 NG/ML VITAMIN D, 25 [id number] 00:00:00 Test Item Value Reference Range Interpretation Comments VITAMIN D, 25 [place] (test code = 4958) 10 NG/ML SARS-CoV-2 (COVID-19) by RT-PCR (HIGH RISK)2021-04-16 00:00:00 Test Item Value Reference Range Interpretation Comments SARS-CoV-2 INTERPRETATION NEGATIVE (test code = 59519) SOURCE (test code = 23505) NASOPHARYNGEAL SARS-CoV-2 (COVID-19) by RT-PCR (HIGH RISK)2021-04-16 00:00:00 Test Item Value Reference Range Interpretation Comments SARS-CoV-2 INTERPRETATION NEGATIVE (test code = 67436) SOURCE (test code = 29224) NASOPHARYNGEAL SARS-CoV-2 (COVID-19) by RT-PCR (HIGH RISK)2021-04-16 00:00:00 Test Item Value Reference Range Interpretation Comments SARS-CoV-2 INTERPRETATION NEGATIVE (test code = 01012) SOURCE (test code = 19332) NASOPHARYNGEAL SARS-CoV-2 (COVID-19) by RT-PCR (HIGH RISK)2021-04-16 00:00:00 Test Item Value Reference Range Interpretation Comments SARS-CoV-2 INTERPRETATION NEGATIVE (test code = 44025) SOURCE (test code = 72816) NASOPHARYNGEAL SARS-CoV-2 (COVID-19) by RT-PCR (HIGH RISK)2021-04-16 00:00:00 Test Item Value Reference Range Interpretation Comments SARS-CoV-2 INTERPRETATION NEGATIVE (test code = 18224) SOURCE (test code = 94172) NASOPHARYNGEAL SARS-CoV-2 (COVID-19) by RT-PCR (HIGH RISK)2021-04-16 00:00:00 Test Item Value Reference Range Interpretation Comments SARS-CoV-2 INTERPRETATION NEGATIVE (test code = 07404) SOURCE (test code = 07122) NASOPHARYNGEAL
[2023-05-21 08:53] LABS: Specific Gravity 1.025 (1.005-1.030)
[2023-05-21] MEDS ORDERED: NA CHLORIDE 0.9% 1,000 ML ONE (08:53)
[2023-05-21] MEDS ORDERED: FAMOTIDINE 20 MG/2 ML VIAL IV ONE (08:53)
[2023-05-21] MEDS ORDERED: ONDANSETRON 4 MG/2 ML VIAL ONE (08:53)
[2023-05-21 08:55] LABS: Specific Gravity 1.025 (1.005-1.030); Urine Bacteria None Seen /HPF (<20); Urine Bilirubin NEGATIVE (Negative); Urine Blood Negative (Negative); Urine Clarity Extremely Turbid (Clear); Urine Color Yellow (Yellow); Urine Glucose NEGATIVE (Negative); Urine Mucus 2+ /HPF (None Seen); Urine Protein TRACE (Negative); Urine Urobilinogen Normal (Normal)
[2023-05-21 09:13] LABS: Absolute Lymphocytes (CBC) 1.2 K/uL (0.7-4.9); Hematocrit 43.7 % (36.0-45.0); Lymphocytes % 14.7 % (15.3-44.8); MPV 9.2 fL (7.6-11.3); Platelets 252 thou/uL (152-406); RBC Red Blood Cell Count 4.76 M/uL (3.86-4.86)
[2023-05-21 09:29] LABS: Albumin 3.8 g/dL (3.4-5.0); Bilirubin Total 0.8 mg/dL (0.2-1.0); Potassium 3.9 mEq/L (3.5-5.1); Protein, Total 8.7 g/dL (6.4-8.2)
--- NOTE | 2023-05-21 11:31 | RAD REPORT ---
EXAM DESCRIPTION: US - Pelvis Complete - 05/21/2023 10:40 am CLINICAL HISTORY: Left pelvic pain COMPARISON: 2021 FINDINGS: Uterus measures 9 x 4 x 4 centimeters. Endometrial stripe 7 millimeters. A fibroid is not seen. 6 centimeter mostly echogenic mass right adnexa without significant change. It contains cystic area. 4.8 centimeter heterogeneous mass left adnexal without significant change. It contains hyper and hypo echoic areas. Blood flow is present These represent dermoid cysts. No significant free fluid. Right and left adnexal otherwise unremarkable IMPRESSION: Bilateral dermoid cysts without significant change 2021
--- NOTE | 2023-05-21 12:14 | ER ---
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 Coronavirus screen: At this time, the client does not indicate any symptoms associated with coronavirus-19. Ebola Screen: Patient negative for fever greater than or equal to 101.5 degrees Fahrenheit, and additional compatible Ebola Virus Disease symptoms Patient denies exposure to infectious person. Patient denies travel to an Ebola-affected area in the 21 days before illness onset. No symptoms or risks identified at this time. Initial Sepsis Screen: Does the patient meet any 2 criteria? No. Patient's initial sepsis screen is negative. Does the patient have a suspected source of infection? No. Patient's initial sepsis screen is negative. Risk Assessment: Do you want to hurt yourself or someone else? Patient reports no desire to harm self or others. Onset of symptoms was May 21, 2023. 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 - Social history:: Smoking status: Patient denies any tobacco usage or history of. Screenin:49 [facility] ED Fall Risk Assessment (Adult) History of falling in the last 3 months, ko1 including since admission No falls in past 3 months (0 pts) Confusion or Disorientation No (0 pts) Intoxicated or Sedated No (0 pts) Impaired Gait No (0 pts) Mobility Assist Device Used No (0 pt) Altered Elimination No (0 pt) Score/Fall Risk Level 0 - 2 = Low Risk Oriented to surroundings, Maintained a safe environment, Educated pt \T\ family on fall prevention, incl call for assistance when getting out of bed, Assessed \T\ reinforced patient's understanding of fall precautions, Provided non-skid footwear, Hourly rounding (assess needs \T\ fall precautionary measures) done, Used ambulatory aids as needed (educated on \T\ assisted with), Used gait belt as appropriate. Abuse screen: Denies threats or abuse. Denies injuries from another. Nutritional screening: No deficits noted. Tuberculosis screening: No symptoms or risk factors identified. Assessment: 08:49 General: Appears in no apparent distress. Behavior is calm, cooperative, appropriate ko1 for age. Pain: Complains of pain in abdomen. Neuro: No deficits noted. Cardiovascular: No deficits noted. Respiratory: No deficits noted. GI: Bowel sounds present X 4 quads. Abd is soft X 4 quads. : No deficits noted. EENT: No deficits noted. Derm: No deficits noted. Musculoskeletal: No deficits noted. Vital Signs: 08:29 BP 124 / 86; Pulse 72; Resp 16; Temp 98.6; Pulse Ox 100% ; iw 09:46 BP 116 / 79; Pulse 71; Resp 16; Pulse Ox 99% ; ko1 11:29 BP 104 / 63; Pulse 71; Resp 16; Pulse Ox 99% ; ko1 ED Course: 08:17 Patient arrived in ED. mg5 08:17 [facility] jh7 08:17 Prasanna Mclaughlin MD is Attending Physician. jh7 08:30 Triage completed. iw 08:31 Mayela Gordon, RN is Primary Nurse. ko1 08:46 Test, Urine Sent. ko1 08:46 Urinalysis w/ reflexes Sent. ko1 08:49 Patient has correct armband on for positive identification. Bed in low position. Call ko1 light in reach. Side rails up X 1. Provided Education on: na. Pulse ox on. NIBP on. Door closed. Noise minimized. Lights dimmed. Warm blanket given. 08:55 Inserted saline lock: 20 gauge in left antecubital area, using aseptic technique. Blood ko1 collected. 08:57 Lipase Sent. ko1 08:57 CMP Sent. ko1 08:57 CBC with Diff Sent. ko1 10:42 US Transvaginal Study (Probe) In Process Unspecified. EDMS 10:42 Pelvis Complete In Process Unspecified. EDMS 12:17 No provider procedures requiring assistance completed. IV discontinued, intact, ko1 bleeding controlled, No redness/swelling at site. Pressure dressing applied. Administered Medications: 09:01 Drug: NS 0.9% IV 1000 ml IV at 1 bolus Per protocol; 1000 mL bolus Route: IV; Rate: 1 ko1 bolus; Site: left antecubital; 09:01 Drug: Ondansetron IVP 4 mg IVP once; over 2 minutes Route: IVP; Site: left antecubital; ko1 09:02 Drug: Famotidine IVP 20 mg IVP once; dilute with 10 mL 0.9% NaCl; give over 2 minutes ko1 Route: IVP; Site: left antecubital; Medication: 08:49 VIS not applicable for this client. ko1 Outcome: 12:14 Discharge ordered by . sanya 12:22 Discharged to home ambulatory, ko1 12:22 Condition: stable 12:22 Discharge instructions given to patient, Instructed on discharge instructions, follow up and referral plans. medication usage, Demonstrated understanding of instructions, follow-up care, medications, Prescriptions given X 2, 12:24 Patient left the ED. ko1 Signatures: Dispatcher [employer] EDMS Jyothi Motley, RN MEENU Vianca Zelaya, POWER PLANT ELECTRICIAN POWER PLANT ELECTRICIAN [facility] Mayela Gordon RN RN ko1 Delmy Degroot mg5
--- NOTE | 2023-05-21 12:15 | EDPHYS ---
Physician Documentation [facility] Name: Caitlin Mcgovern Age: 27 yrs Sex: Female : 1995 Arrival Date: 05/21/2023 Time: 08:13 Bed 16 Private MD: ED Physician Prasanna Mclaughlin HPI: 05/21 08:30 This 27 yrs old Female presents to ER via Ambulatory with complaints of jh7 Abdominal Pain, Nausea. 08:30 The patient presents with abdominal pain in the lower abdomen. Onset: The jh7 symptoms/episode began/occurred last night. The symptoms do not radiate. Associated signs and symptoms: Pertinent positives: nausea, vomiting, and diarrhea, Pertinent negatives: fever, headache, palpitations, shortness of breath, vaginal discharge, vomiting blood. The symptoms are described as crampy. 13:02 Reports a history of teratomas and is concerned that they have grown. 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 - Social history:: Smoking status: Patient denies any tobacco usage or history of. ROS: 08:30 Constitutional: Negative for fever, chills, and weight loss, Eyes: Negative for injury, jh7 pain, redness, and discharge, Neck: Negative for injury, pain, and swelling, Cardiovascular: Negative for chest pain, palpitations, and edema, Respiratory: Negative for shortness of breath, cough, wheezing, and pleuritic chest pain, Back: Negative for injury and pain, : Negative for injury, bleeding, discharge, and swelling, MS/Extremity: Negative for injury and deformity, Skin: Negative for injury, rash, and discoloration, Neuro: Negative for headache, weakness, numbness, tingling, and seizure, 08:30 Abdomen/GI: Positive for abdominal pain, nausea, vomiting, and diarrhea, abdominal cramps, Negative for black/tarry stool, rectal bleeding, 08:30 All other systems are negative, Exam: 08:30 Constitutional: This is a well developed, well nourished patient who is awake, alert, jh7 and in no acute distress. Head/Face: Normocephalic, atraumatic. ENT: Nares patent. No nasal discharge, no septal abnormalities noted. Tympanic membranes are normal and external auditory canals are clear. Oropharynx with no redness, swelling, or masses, exudates, or evidence of obstruction, uvula midline. Mucous membranes moist. Neck: Trachea midline, no thyromegaly or masses palpated, and no cervical lymphadenopathy. Supple, full range of motion without nuchal rigidity, or vertebral point tenderness. No Meningismus. Cardiovascular: Regular rate and rhythm with a normal S1 and S2. No gallops, murmurs, or rubs. Normal PMI, no JVD. No pulse deficits. Respiratory: Lungs have equal breath sounds bilaterally, clear to auscultation and percussion. No rales, rhonchi or wheezes noted. No increased work of breathing, no retractions or nasal flaring. Abdomen/GI: Soft, non-tender, with normal bowel sounds. No distension or tympany. No guarding or rebound. No evidence of tenderness throughout. Back: No spinal tenderness. No costovertebral tenderness. Full range of motion. Skin: Warm, dry with normal turgor. Normal color with no rashes, no lesions, and no evidence of cellulitis. Neuro: Awake and alert, GCS 15, oriented to person, place, time, and situation. Normal gait. Vital Signs: 08:29 BP 124 / 86; Pulse 72; Resp 16; Temp 98.6; Pulse Ox 100% ; iw 09:46 BP 116 / 79; Pulse 71; Resp 16; Pulse Ox 99% ; ko1 11:29 BP 104 / 63; Pulse 71; Resp 16; Pulse Ox 99% ; ko1 MDM: 08:18 Patient medically screened. 7 12:15 Differential diagnosis: Ovarian Torsion, Tubal Ovarian Abcess, urinary tract infection, jh7 Ovarian cyst, gastroenteritis. Data reviewed: vital signs, nurses notes, lab test result(s), radiologic studies, ultrasound. I considered the following discharge prescriptions or medication management in the emergency department Medications were administered in the Emergency Department. See MAR. Counseling: I had a detailed discussion with the patient and/or guardian regarding the historical points, exam findings, and any diagnostic results supporting the discharge/admit diagnosis, lab results, radiology results, to return to the emergency department if symptoms worsen or persist or if there are any questions or concerns that arise at home. Response to treatment: the patient's symptoms have markedly improved after treatment. 05/21 08:36 Order name: CBC with Diff; Complete Time: 09:29 [facility] 05/21 08:36 Order name: CMP; Complete Time: 09:30 [facility] 05/21 08:36 Order name: Lipase; Complete Time: 09:30 [facility] 05/21 08:36 Order name: Test, Urine; Complete Time: 09:29 [facility] 05/21 08:36 Order name: Urinalysis w/ reflexes; Complete Time: 09:29 [facility] 05/21 09:44 Order name: US Transvaginal Study (Probe) [facility] 05/21 10:33 Order name: Pelvis Complete; Complete Time: 12:13 EDMS 05/21 08:36 Order name: IV Saline Lock; Complete Time: 08:57 [facility] 05/21 08:36 Order name: Labs collected and sent; Complete Time: 08:57 [facility] Administered Medications: 09:01 Drug: NS 0.9% IV 1000 ml IV at 1 bolus Per protocol; 1000 mL bolus Route: IV; Rate: 1 ko1 bolus; Site: left antecubital; 09:01 Drug: Ondansetron IVP 4 mg IVP once; over 2 minutes Route: IVP; Site: left antecubital; ko1 09:02 Drug: Famotidine IVP 20 mg IVP once; dilute with 10 mL 0.9% NaCl; give over 2 minutes ko1 Route: IVP; Site: left antecubital; Disposition Summary: 05/21/23 12:14 Discharge Ordered Notes: Location: Home [facility] Problem: new [facility] Symptoms: have improved [facility] Condition: Stable [facility] Diagnosis - Other specified noninfective gastroenteritis and colitis [facility] - Lower abdominal pain, unspecified [facility] Followup: [facility] - With: Private Physician - When: 2 - 3 days - Reason: Recheck today's complaints Discharge Instructions: - Discharge Summary Sheet [facility] - Abdominal Pain, Adult [facility] Forms: - Medication Reconciliation Form [facility] - Thank You Letter [facility] - Patient Portal Instructions [facility] - Leadership Thank You Letter [facility] Prescriptions: - ondansetron 4 mg Oral Tablet,disintegrating - take 1 tablet ORAL route every 4-6 hours As needed as needed for nausea and jh7 vomiting; 20 tablet; Refills: 0, Product Selection Permitted - Levsin 0.125 mg Oral Tablet - take 1 tablet ORAL route every 8 hours; 30 tablet; Refills: 0, Product jh7 Selection Permitted Signatures: Dispatcher [employer] Jyothi Houston RN RN iw Vinaca Zelaya, AERIAL PHOTOGRAPHER AERIAL PHOTOGRAPHER jh7 Mayela Gordon RN RN ko1 Corrections: (The following items were deleted from the chart) 13:02 08:30 The symptoms are described as crampy, jh7 jh7
--- NOTE | 2023-05-22 12:19 | RAD REPORT ---
EXAM DESCRIPTION: US - Transvaginal Study Probe - 05/21/2023 10:40 am CLINICAL HISTORY: Left pelvic pain COMPARISON: 2021 FINDINGS: Uterus measures 9 x 4 x 4 centimeters. Endometrial stripe 7 millimeters. A fibroid is not seen. 6 centimeter mostly echogenic mass right adnexa without significant change. It contains cystic area. 4.8 centimeter heterogeneous mass left adnexal without significant change. It contains hyper and hypo echoic areas. Blood flow is present These represent dermoid cysts. No significant free fluid. Right and left adnexal otherwise unremarkable IMPRESSION: Bilateral dermoid cysts without significant change 2021
== END 2023-05-21 12:24 | disposition home or self-care (01) ==
LOC: ER 08:13
DX: K52.89 Other specified noninfective gastroenteritis and colitis (principal)
CPT/HCPCS: 36415; 76830; 76856; 80053; 81001; 81025; 83690; 85025; J2405; J7030

== ENCOUNTER 2024-02-16 18:52 | Emergency (ER) | payer SELFPAY ==
--- OUTSIDE RECORDS SUMMARY | 2024-02-16 18:56 | XMS REPORT | Continuity of Care Document ---
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 Name Role Phone Lydia Knox NP Primary Care Physician GC_GCBZW_Erasto_S Attending Clinician Unavaila ble Pgy3 Attending Clinician Unavailable Amie WHRosemary OBREGON Attending Clinician + ROSEMARY HOLLOWAY Attending Clinician Unavail able [facility], [facility] Attending Clinician Unava ANJEL Chase Attending Clinician Unavailable Marta RUDOLPH, Sridevi Barclay Attending Clinician [phone] Anjel Braswell NP Attending Clinician [phone] MICAH DOWNS Attending Clinician Unavailable Micah Downs MD Attending Clinician [phone] HONEY ZARAGOZA Attending Clinician Unavailable Honey Zaragoza APN Attending Clinician [phone] Doctor Unassigned, Rodey Attending Clinician U Kvng Villegas Attending Clinician DEEPA QUINONES Attending Clinician Unavaila Deepa Sewell Attending Clinician + [phone] Betsy Clay Attending Clinician GC_GCBZW_Kadiyala_S Admitting Clinician UnavailANJEL Mcgee Admitting Clinician Unavailable HONEY ZARAGOZA Admitting Clinician Unavailable DEEPA QUINONES Admitting Clinician Unavailantonio dimas Payers Payer Name Policy Type Policy Number Effective Date Expirati on Date Source [employer] MEDICA[employer] [id number] 2016 00:00:00 HTW-RMCHP [id number] 2021 00:00:00 Problems Condition Name Condition Details Condition Category Status Onset Date Resolution Date Last Treatment Date Treating Clinician Comments Source Other general counseling and advice for contracept cuca management Other general counseling and advice for contracept cuca management Disease Active 01-05 00:00: 00 [facility] Obesity (BMI 30-39.9) Obesity (BMI 30-39.9) Disease Active 01-05 00:00: 00 [facility] Ovarian cyst Ovarian cyst Disease Active 01-05 00:00: 00 [facility] Depression , unspecifie d depression type Depression , unspecifie d depression type Disease Active 4-17 00:00: 00 [facility] Allergies, Adverse Reactions, Alerts Allergy Name Allergy Type Status Severity Reaction(s) Onset Date Inactive Date Treating Clinician Comments Source Penicill ins - CLASS Propensi ty to adverse reaction to drug Active 1-30 00:00: 00 Kt Darby Penicill ins Propensi ty to adverse reaction s Active Anaphylaxis 7- 00:00: 00 [facility] PENICILL INS Drug Class Active Anaphylaxis 7-26 00:00: 00 [facility] Penicill ins Propensi ty to adverse reaction to drug Active 1- 00:00: 00 Kt Darby Social History Social Habit Start Date Stop Date Quantity Comments Source Exposure to SARS-CoV-2 (event) 2022-03-26 00:00:00 2022-04-05 16:06:00 Not sure [facility] Alcohol intake 2022-04-05 00:00:00 2022-04-05 00:00:00 Current non-drinker of alcohol (finding) [facility] Tobacco use and exposure 2022-02-22 00:00:00 2022-02-22 00:00:00 Smokeless tobacco non-user [facility] Sex Assigned At 1995 00:00:00 1995 00:00:00 [facility] Smoking Status Start Date Stop Date Source Never smoked tobacco [facility] Medications Ordered Medication Name Filled Medication Name Start Date Stop Date Current Medication? Ordering Clinician Indication Dosage Frequency Signature (SIG) Comments Components Source albuterol sulfate HFA 90 mcg/actuati on aerosol inhaler 11-20 00:00: 00 Yes 12mcg/a ctuatio n Kt Darby TAKE 1 TABLET EVERY 8 HOURS WITH FOOD NEEDED. 2022-07 00:00: 00 11-25 00:00 :00 No 800 Kt Darby TAKE 1 TABLET DAILY. 2022-07 00:00: 00 11-25 00:00 :00 No [id number] Kt Darby TAKE 1 TABLET BY MOUTH EVERY 8 HOURS 2022-07 00:00: 00 Yes Kt Darby DISSOLVE 1 TABLET BY MOUTH EVERY 4-6 HOURS NEEDED FOR NAUSEA/VOMI TING 2022-07 00:00: 00 Yes Kt Darby TAKE DIRECTED. 02-12 00:00: 00 11-25 00:00 :00 No Kt Darby TAKE 1 TABLET DAILY. 02-12 00:00: 00 11-25 00:00 :00 No 10 Kt Darby TAKE 2 TABLETS BY MOUTH TODAY, THEN TAKE 1 TABLET DAILY FOR 4 DAYS 11-26 00:00: 00 Yes Kt Darby TAKE 1 TABLET BY MOUTH EVERY 6 HOURS NEEDED FOR NAUSEA 11-26 00:00: 00 Yes Kt Darby TAKE 1 CAPSULE EVERY MORNING. 08-27 00:00: 00 11-25 00:00 :00 No 10 Kt Darby Dose Unknown 2021-07 00:00: 00 Yes 250 Kt Darby TAKE 1 TABLET BY MOUTH TWICE DAILY 2021-07 00:00: 00 Yes 75 Kt Darby TAKE 1 TABLET BY MOUTH EVERY 6 HOURS NEEDED FOR PAIN SCALE 4 TO 6 2021-07 00:00: 00 Yes Kt Darby Dose Unknown 2021-07 00:00: 00 Yes 10 Kt Darby Dose Unknown 2021-07 00:00: 00 Yes Kt Darby TAKE 1 TABLET BY MOUTH IN THE MORNING 2021-07 00:00: 00 Yes Kt Darby Dose Unknown 2021-07 00:00: [address] 1 TABLET ON TONGUE AND ALLOW TO DISSOLVE 3 TIMES DAILY NEEDED. 2021-07 00:00: 00 11-25 00:00 :00 No 4unit Kt Darby TAKE 1 TABLET DAILY DIRECTED. 2021-07 00:00: 00 11-25 00:00 :00 No unit Kt Darby TAKE 1 CAPSULE WEEKLY. 2021-07 00:00: 00 11-25 00:00 :00 No [id number] 0unit Kt Darby levonorgest rel-ethinyl estradiol (SRONYX) 0.1-20 mg-mcg per tablet 04-05 00:00: 00 Yes [id number] 1{tbl} Take 1 tablet by mouth in the morning. [facility] ondansetron 4 mg disintegrat ing tablet 01-20 00:00: 00 Yes [id number] 4mg Take 1 tablet by mouth every 8 (eight) hours as needed for Nausea and Vomiting (N/V). [facility] proMETHazin e 25 mg tablet 01-20 00:00: 00 Yes [id number] 25mg Take 1 tablet by mouth every 8 (eight) hours as needed for N/V unresponsi ve to Ondansetro n. [facility] TAKE 1 TABLET BY MOUTH ONCE DAILY 01-19 00:00: 00 No TAKE 1 TABLET BY MOUTH ONCE DAILY 01-19 00:00: 00 No TAKE 1 TABLET BY MOUTH ONCE DAILY 01-19 00:00: 00 No TAKE 1 TABLET BY MOUTH ONCE DAILY 01-19 00:00: 00 Yes Kt Darby Dose Unknown 01-12 00:00: 00 No Dose Unknown 01-12 00:00: 00 No Dose Unknown 01-12 00:00: 00 No Dose Unknown 01-12 00:00: 00 Yes Kt Darby medroxyPROG ESTERone (DEPO-PROVE RA) injection 150 mg 01-05 21:00: 00 06-22 21:59 :00 No [id number] 150mg [facility] ibuprofen 800 mg tablet 01-05 15:19: 08 Yes 800mg Take 800 mg by mouth every 6 (six) hours as needed. [facility] acetaminoph en-codeine 300-30 mg tablet 01-03 00:00: 00 Yes [id number] 1{tbl} Take 1 tablet by mouth every 6 (six) hours as needed for Pain (scale 4-6). Indication s: acute pain [facility] Dose Unknown 12-31 00:00: 00 No Dose Unknown 12-31 00:00: 00 No Dose Unknown 12-31 00:00: 00 No Dose Unknown 12-31 00:00: 00 No Dose Unknown 12-31 00:00: 00 No Dose Unknown 12-31 00:00: 00 No Dose Unknown 12-31 00:00: 00 Yes Kt Darby Dose Unknown 12-31 00:00: 00 Yes Kt Darby TAKE 2 TABLETS BY MOUTH ON DAY 1 AND THEN TAKE 1 TABLET BY MOUTH ONCE A DAY ON DAY 2 THROUGH DAY 5 12-29 00:00: 00 No TAKE 2 TABLETS BY MOUTH ON DAY 1 AND THEN TAKE 1 TABLET BY MOUTH ONCE A DAY ON DAY 2 THROUGH DAY 5 12-29 00:00: 00 No TAKE 2 TABLETS BY MOUTH ON DAY 1 AND THEN TAKE 1 TABLET BY MOUTH ONCE A DAY ON DAY 2 THROUGH DAY 5 12-29 00:00: 00 No TAKE 2 TABLETS BY MOUTH ON DAY 1 AND THEN TAKE 1 TABLET BY MOUTH ONCE A DAY ON DAY 2 THROUGH DAY 5 12-29 00:00: 00 Yes Kt Darby ibuprofen 800 mg tablet 0 12-28 00:00: 00 No 1mg Dose Unknown 2021-0 12-28 00:00: 00 No Dose Unknown 2021-0 12-28 00:00: 00 No Dose Unknown 0 12-28 00:00: 00 No ibuprofen 800 mg tablet 0 12-28 00:00: 00 No 1mg Dose Unknown 2021-0 12-28 00:00: 00 No Dose Unknown 0 12-28 00:00: 00 No Dose Unknown 0 12-28 00:00: 00 No ibuprofen 800 mg tablet 0 12-28 00:00: 00 No 1mg Dose Unknown 0 12-28 00:00: 00 No Dose Unknown 0 12-28 00:00: 00 No Dose Unknown 0 12-28 00:00: 00 No Dose Unknown 0 12-28 00:00: 00 Yes 25 Kt Darby Dose Unknown 0 12-28 00:00: 00 Yes Kt Darby Dose Unknown 0 12-28 00:00: 00 Yes Kt Darby Dose Unknown 0 12-28 00:00: 00 Yes Kt Darby azithromyci n 250 mg tablet 08-30 00:00: 00 No mg benzonatate 200 mg capsule 0 08-30 00:00: 00 No 1mg Dose Unknown 0 08-30 00:00: 00 No azithromyci n 250 mg tablet 0 08-30 00:00: 00 No mg benzonatate 200 mg capsule 0 08-30 00:00: 00 No 1mg Bromfed DM 2 mg-30 mg-10 mg/5 mL oral syrup 0 2- 00:00: 00 No 10mg/5 mL azithromyci n 250 mg tablet 0 08-30 00:00: 00 No mg benzonatate 200 mg capsule 0 08-30 00:00: 00 No 1mg Dose Unknown 0 2 00:00: 00 No Dose Unknown 0 2 00:00: 00 Yes Kt Darby Dose Unknown 08-30 00:00: 00 Yes Kt Darby Vitamin D2 1,250 mcg (50,000 unit) capsule 08-01 00:00: 00 No 1(50,00 0 unit) Dose Unknown 08-01 00:00: 00 No Dose Unknown 08-01 00:00: 00 No Dose Unknown 08-01 00:00: 00 Yes Kt Darby Zyrtec 10 mg tablet 04-14 00:00: 00 No 1mg azithromyci n 250 mg tablet 04-14 00:00: 00 No mg Zyrtec 10 mg tablet 04-14 00:00: 00 No 1mg azithromyci n 250 mg tablet 04-14 00:00: 00 No mg Zyrtec 10 mg tablet 04-14 00:00: 00 No 1mg azithromyci n 250 mg tablet 04-14 00:00: 00 No mg Dose Unknown 04-14 00:00: 00 Yes 10 Kt Darby prednisone 20 mg tablet 0 18 00:00: 00 No 2mg loratadine 10 mg tablet 18 00:00: 00 No mg prednisone 20 mg tablet 0 18 00:00: 00 No 2mg loratadine 10 mg tablet 18 00:00: 00 No mg prednisone 20 mg tablet 0 18 00:00: 00 No 2mg loratadine 10 mg tablet 0 18 00:00: 00 No mg Dose Unknown 18 00:00: 00 Yes 10 Kt Darby Dose Unknown 18 00:00: 00 Yes [id number] Kt Darby doxycycline monohydrate 100 mg capsule 10-02 00:00: 00 No 1mg Dose Unknown 10-02 00:00: 00 No doxycycline monohydrate 100 mg capsule 10-02 00:00: 00 No 1mg Dose Unknown 10-02 00:00: 00 No doxycycline monohydrate 100 mg capsule 10-02 00:00: 00 No 1mg Bromfed DM 2 mg-30 mg-10 mg/5 mL oral syrup 10-02 00:00: 00 No 10mg/5 mL Dose Unknown 10-02 00:00: 00 Yes Kt Darby Dose Unknown 10-02 00:00: 00 Yes Kt Sylvester Darby loratadine 10 mg tablet 08-26 00:00: 00 No 1mg azithromyci n 250 mg tablet 08-26 00:00: 00 No mg Dose Unknown 08-26 00:00: 00 No loratadine 10 mg tablet 08-26 00:00: 00 No 1mg azithromyci n 250 mg tablet 08-26 00:00: 00 No mg Dose Unknown 08-26 00:00: 00 No loratadine 10 mg tablet 08-26 00:00: 00 No 1mg azithromyci n 250 mg tablet 08-26 00:00: 00 No mg Bromfed DM 2 mg-30 mg-10 mg/5 mL oral syrup 08-26 00:00: 00 No 5mg/5 mL azithromyci n 250 mg tablet 08-26 00:00: 00 Yes mg Kt Darby Dose Unknown 08-26 00:00: 00 Yes 10 Kt Darby Dose Unknown 08-26 00:00: 00 Yes Kt Sylvester Wilner Immunizations Ordered Immunization Name Filled Immunization Name Date Status Comments Source varicella varicella 2023-10-05 00:00:00 Michelle Darby Influenza, injectable, Madin Janell Canine Kidney, preservative-free, quadrivalent Influenza, injectable, Madin [place] Canine Kidney, preservative-free, quadrivalent 2023-10-05 00:00:00 Completed Kt Darby Hep B, adult Hep B, adult 2023-09-06 00:00:00 Completed Kt Darby Tdap Tdap 2023-09-06 00:00:00 Completed Kt Darby MMR MMR 2023-09-06 00:00:00 Michelle Darby (Old) COVID-19, (Pfizer) mRNA, LNP-S, PF, 30 mcg/0.3 mL dose, amaris-sucrose (Old) COVID-19, (Pfizer) mRNA, LNP-S, PF, 30 mcg/0.3 mL dose, amaris-sucrose 2022-02-23 00:00:00 Completed Kt Darby COVID-19, (Pfizer) mRNA, LNP-S, PF, 30 mcg/0.3 mL dose, amaris-sucrose 2022-02-23 00:00:00 Completed COVID-19, (Pfizer) mRNA, LNP-S, PF, 30 mcg/0.3 mL dose, amaris-sucrose 2022-02-23 00:00:00 Completed COVID-19, (Pfizer) mRNA, LNP-S, PF, 30 mcg/0.3 mL dose, amaris-sucrose 2022-02-23 00:00:00 Completed Vital Signs Vital Name Observation Time Observation Value Comments S ource Systolic blood pressure 2022-04-05 21:06:00 133 mm[Hg] Driggs o [facility] Diastolic blood pressure 2022-04-05 21:06:00 83 mm[Hg] Driggs o [facility] Heart rate 2022-04-05 21:06:00 86 /min [facility] Body temperature 2022-04-05 21:06:00 36.78 Kaylee [facility] Respiratory rate 2022-04-05 21:06:00 18 /min [facility] Body height 2022-04-05 21:06:00 149.9 cm [facility] Body weight 2022-04-05 21:06:00 77.338 kg [facility] BMI 2022-04-05 21:06:00 34.44 kg/m2 [facility] BP Systolic 2023-11-21 13:47:00 121 mm[Hg] Step hen Sylvester Darby BP Diastolic 2023-11-21 13:47:00 83 mm[Hg] Aravind phen F Wilner Weight Measured 2023-11-21 13:47:00 176.60 pounds Kt F Wilner Height Measured 2023-11-21 13:47:00 60.00 inches Kt F Wilner Body Temperature 2023-11-21 13:47:00 97.80 degrees Kt F Wilner Heart Rate 2023-11-21 13:47:00 91.00 /min Jaky en F Wilner Respiratory Rate 2023-11-21 13:47:00 18.00 /min Kt F Wilner BP Systolic 2023-05-22 09:03:00 113 mm[Hg] Step hen F Wilner BP Diastolic 2023-05-22 09:03:00 74 mm[Hg] Aravind phen F Wilner Weight Measured 2023-05-22 09:03:00 179.40 pounds Kt F Wilner Height Measured 2023-05-22 09:03:00 60.00 inches Kt F Wilner Body Temperature 2023-05-22 09:03:00 98.30 degrees Kt F Wilner Heart Rate 2023-05-22 09:03:00 65.00 /min Jaky en F Wilner Respiratory Rate 2023-05-22 09:03:00 16.00 /min Kt F Wilner BP Systolic 2023-02-20 10:17:00 115 mm[Hg] Step hen F Wilner BP Diastolic 2023-02-20 10:17:00 76 mm[Hg] Aravind phen F Wilner Weight Measured 2023-02-20 10:17:00 176.80 pounds Kt F Wilner Height Measured 2023-02-20 10:17:00 60.00 inches Kt F Wilner Body Temperature 2023-02-20 10:17:00 98.20 degrees Kt F Wilner Heart Rate 2023-02-20 10:17:00 72.00 /min Jaky en F Wilner Respiratory Rate 2023-02-20 10:17:00 19.00 /min Kt F Wilner Heart Rate 2023-02-12 13:54:00 93.00 /min Jaky en F Wilner Respiratory Rate 2023-02-12 13:54:00 17.00 /min Kt F Wilner BP Systolic 2023-02-12 13:54:00 114 mm[Hg] Step hen F Wilner BP Diastolic 2023-02-12 13:54:00 80 mm[Hg] Aravind phen F Wilner Weight Measured 2023-02-12 13:54:00 177.40 pounds Kt F Wilner Height Measured 2023-02-12 13:54:00 60.00 inches Kt F Wilner Body Temperature 2023-02-12 13:54:00 98.40 degrees Kt F Wilner BP Systolic 2022-07-06 09:20:00 127 mm[Hg] Step hen F Wilner BP Diastolic 2022-07-06 09:20:00 85 mm[Hg] Aravind phen F Wilner Weight Measured 2022-07-06 09:20:00 169.40 pounds Kt F Wilner Height Measured 2022-07-06 09:20:00 60.00 inches Kt F Wilner Body Temperature 2022-07-06 09:20:00 98.20 degrees Kt F Wilner Heart Rate 2022-07-06 09:20:00 77.00 /min Jaky en F Wilner Respiratory Rate 2022-07-06 09:20:00 18.00 /min Kt F Wilner BP Systolic 2022-04-11 15:41:00 125 mm[Hg] Step hen F Wilner BP Diastolic 2022-04-11 15:41:00 81 mm[Hg] Aravind phen F Wilner Weight Measured 2022-04-11 15:41:00 171.80 pounds Kt F Wilner Height Measured 2022-04-11 15:41:00 60.00 inches Kt F Wilner Body Temperature 2022-04-11 15:41:00 98.30 degrees Kt F Wilner Heart Rate 2022-04-11 15:41:00 80.00 /min Jaky en F Wilner Respiratory Rate 2022-04-11 15:41:00 Kt F Wilner BP Systolic 2022-03-14 10:54:00 107 mm[Hg] Step hen F Wilner BP Diastolic 2022-03-14 10:54:00 75 mm[Hg] Aravind phen F Wilner Weight Measured 2022-03-14 10:54:00 165.60 pounds Kt F Wilner Height Measured 2022-03-14 10:54:00 60.00 inches Kt F Wilner Body Temperature 2022-03-14 10:54:00 98.40 degrees Kt F Wilner Heart Rate 2022-03-14 10:54:00 78.00 /min Jaky en F Wilner Respiratory Rate 2022-03-14 10:54:00 18.00 /min Kt F Wilner BP Systolic 2021-12-28 15:12:00 125 mm[Hg] Step hen F Wilner BP Diastolic 2021-12-28 15:12:00 84 mm[Hg] Aravind phen F Wilner Weight Measured 2021-12-28 15:12:00 173.20 pounds Kt F Wilner Height Measured 2021-12-28 15:12:00 60.00 inches Kt F Wilner Body Temperature 2021-12-28 15:12:00 98.40 degrees Kt F Wilner Heart Rate 2021-12-28 15:12:00 68.00 /min Jaky en F Wilner Respiratory Rate 2021-12-28 15:12:00 20.00 /min Kt F Wilner BP Systolic 2021-07-31 13:55:00 129 mm[Hg] Step hen F Wilner BP Diastolic 2021-07-31 13:55:00 86 mm[Hg] Aravind phen F Wilner Weight Measured 2021-07-31 13:55:00 184.20 pounds Kt F Wilner Height Measured 2021-07-31 13:55:00 60.00 inches Kt F Wilner Body Temperature 2021-07-31 13:55:00 98.40 degrees Kt F Wilner Heart Rate 2021-07-31 13:55:00 84.00 /min Jaky en F Wilner Respiratory Rate 2021-07-31 13:55:00 25.00 /min Kt F Wilner BP Systolic 2019-10-21 08:55:00 129 mm[Hg] Step hen F Wilner BP Diastolic 2019-10-21 08:55:00 84 mm[Hg] Aravind phen F Wilner Weight Measured 2019-10-21 08:55:00 191.20 pounds Kt F Wilner Height Measured 2019-10-21 08:55:00 60.00 inches Kt F Wilner Body Temperature 2019-10-21 08:55:00 99.20 degrees Kt F Wilner Heart Rate 2019-10-21 08:55:00 64.00 /min Jaky en F Wilner Respiratory Rate 2019-10-21 08:55:00 20.00 /min Kt F Wilner BP Systolic 2019-10-14 08:19:00 108 mm[Hg] BP [...] /min Respiratory Rate 2019-08-26 13:42:00 18.00 /min Plan of Care Planned Activity Planned Date Details Comments Source Goal Plan of Care Note [code = 82911-4] Goal Plan of Care Note [code = 39378-7] Goal Plan of Care Note [code = 67966-9] Goal Plan of Care Note [code = 91955-6] Goal Plan of Care Note [code = 22981-9] Goal Plan of Care Note [code = 25916-3] Goal Plan of Care Note [code = 97695-2] Goal Plan of Care Note [code = 13606-0] Goal Plan of Care Note [code = 34598-8] Goal Plan of Care Note [code = 13080-2] Goal Plan of Care Note [code = 97694-9] Goal Plan of Care Note [code = 67967-6] Goal Plan of Care Note [code = 20987-2] Goal Plan of Care Note [code = 68932-5] Goal Plan of Care Note [code = 82382-9] Goal Plan of Care Note [code = 43004-3] Goal Plan of Care Note [code = 74550-0] Goal Plan of Care Note [code = 79971-0] Goal Plan of Care Note [code = 79329-1] Goal Plan of Care Note [code = 97226-6] Goal Plan of Care Note [code = 43027-6] Goal Plan of Care Note [code = 44088-8] Goal Plan of Care Note [code = 72704-2] Goal Plan of Care Note [code = 13992-3] Goal Plan of Care Note [code = 00008-1] Goal Plan of Care Note [code = 77601-2] Goal Plan of Care Note [code = 79321-6] Goal Plan of Care Note [code = 43136-1] Goal Plan of Care Note [code = 08320-9] Goal Plan of Care Note [code = 93844-2] Goal Plan of Care Note [code = 34803-4] Goal Plan of Care Note [code = 56777-9] Goal Plan of Care Note [code = 45715-8] Goal Plan of Care Note [code = 93463-9] Goal Plan of Care Note [code = 26288-8] Goal Plan of Care Note [code = 25675-4] Goal Plan of Care Note [code = 11377-5] Goal Plan of Care Note [code = 06447-4] Goal Plan of Care Note [code = 75206-7] Goal Plan of Care Note [code = 02386-1] Goal Plan of Care Note [code = 74597-7] Goal Plan of Care Note [code = 75570-8] Goal Plan of Care Note [code = 31995-0] Goal Plan of Care Note [code = 83553-3] Goal Plan of Care Note [code = 38074-0] Goal Plan of Care Note [code = 48484-1] Goal Plan of Care Note [code = 21502-3] Goal Plan of Care Note [code = 81642-0] Goal Plan of Care Note [code = 31117-8] Goal Plan of Care Note [code = 88486-3] Goal Plan of Care Note [code = 24266-2] Goal Plan of Care Note [code = 91059-1] Goal Plan of Care Note [code = 56329-2] Goal Plan of Care Note [code = 51805-2] Goal Plan of Care Note [code = 60276-7] Goal Plan of Care Note [code = 61910-2] Goal Plan of Care Note [code = 06683-3] Goal Plan of Care Note [code = 50190-0] Goal Plan of Care Note [code = 68351-0] Goal Plan of Care Note [code = 13053-6] Goal Plan of Care Note [code = 15616-0] Goal Plan of Care Note [code = 32797-6] Goal Plan of Care Note [code = 24394-9] Goal Plan of Care Note [code = 11267-5] Goal Plan of Care Note [code = 79300-2] Goal Plan of Care Note [code = 92203-7] Goal Plan of Care Note [code = 54933-7] Goal Plan of Care Note [code = 49552-5] Goal Plan of Care Note [code = 27619-4] Goal Plan of Care Note [code = 55717-8] Goal Plan of Care Note [code = 40743-1] Goal Plan of Care Note [code = 87414-7] Goal Plan of Care Note [code = 75711-9] Goal Plan of Care Note [code = 71668-7] Goal Plan of Care Note [code = 65744-2] Goal Plan of Care Note [code = 01501-2] Goal Plan of Care Note [code = 27032-9] Goal Plan of Care Note [code = 07784-3] Goal Plan of Care Note [code = 81959-8] Goal Plan of Care Note [code = 55426-4] Goal Plan of Care Note [code = 97547-3] Goal Plan of Care Note [code = 18143-1] Goal Plan of Care Note [code = 81677-4] Goal Plan of Care Note [code = 66584-2] Goal Plan of Care Note [code = 58002-6] Encounters Start Date/Time End Date/Time Encounter Type Admission Type Attending Clinicians Care Facility Care Department Encounter ID Source 2021-05-29 10:37:03 Emergency [facility] [id number] [facility] 2021-05-26 08:50:48 Emergency [facility] [id number] [facility] 2023-11-21 13:34:59 2023-11-21 13:34:59 Outpatient SFA SFA [id number] Kt Darby 2023-11-21 00:00:00 2023-11-21 00:00:00 Outpatient Visit SFA [id number] Kt Darby 2023-10-05 13:36:44 2023-10-05 13:36:44 Outpatient SFA SFA [id number] Kt Darby 2023-09-02 13:28:01 2023-09-02 13:28:01 Outpatient SFA SFA [id number] Kt Phan Wilner 2023-05-28 00:00:00 2023-05-28 00:00:00 Outpatient GC_GCBZW_Ka diyala_S [facility] [id number] [facility] 2023-05-22 08:50:47 2023-05-22 08:50:47 Outpatient SFA SFA [id number] Kt Darby 2023-02-20 10:06:10 2023-02-20 10:06:10 Outpatient SFA SFA [id number] Kt Darby 2023-02-18 09:19:11 2023-02-18 09:19:11 Outpatient SFA SFA [id number] Kt Darby 2023-02-12 13:46:22 2023-02-12 13:46:22 Outpatient SFA SFA [id number] Kt Darby 2022-12-05 14:53:11 2022-12-05 14:53:11 Outpatient SFA SFA [id number] Kt Darby 2022-09-05 15:17:08 2022-09-05 15:17:08 Outpatient SFA SFA [id number] Kt Darby 2022-08-20 14:27:04 2022-08-20 14:27:04 Outpatient SFA [id number] Kt Darby 2022-07-06 09:04:26 2022-07-06 09:04:26 Outpatient SFA [id number] Kt Darby 2022-07-06 00:00:00 2022-07-06 00:00:00 Outpatient Visit [id number] 2022-05-11 15:15:00 2022-05-11 15:15:00 Outpatient R [facility] [id number] [facility] 2022-05-01 00:00:00 2022-05-01 00:00:00 Telephone Pgy3 [facility] ..[id number] [facility] 2022-04-30 00:00:00 2022-04-30 00:00:00 Telephone Rosemary Holloway [facility] 1..[id number] [facility] 2022-04-11 00:00:00 2022-04-11 00:00:00 Outpatient Visit [id number] 2022-04-05 15:45:00 2022-04-05 16:25:00 Outpatient R ROSEMARY HOLLOWAY [facility] [id number] [facility] 2022-04-05 15:45:00 2022-04-05 16:25:00 Office Visit Rosemary Holloway [facility] & [facility]ILD [facility] 1..114 350.1.13.10 [id number] [id number] [facility] 2022-04-05 15:45:00 2022-04-05 16:25:00 Outpatient R ROSEMARY HOLLOWAY [facility] [id number] [facility] 2022-03-30 13:00:00 2022-03-30 13:15:00 Nurse Visit Visit, Ang-Rmchp Nurse Rosemary Holloway [facility] & CHILD [facility] 1.0.114 350.1.13.10 4.2.7.2.686 [id number] [facility] 2022-03-30 13:00:00 2022-03-30 13:00:00 Outpatient R [facility] [id number] [facility] 2022-03-30 13:00:00 2022-03-30 13:00:00 Outpatient R [facility] [id number] [facility] 2022-03-30 13:00:00 2022-03-30 13:00:00 Outpatient R ROSEMARY HOLLOWAY [facility] [id number] [facility] 2022-03-15 10:24:00 2022-03-15 14:46:00 Emergency X ANJEL BRASWELL [facility] ERT [id number] [facility] 2022-03-15 10:24:00 2022-03-15 14:46:00 Emergency Sridevi Lozano [place] G [facility] 1..114 350.1.13.10 4.2.7.2.686 [id number] [facility] 2022-03-14 00:00:00 2022-03-14 00:00:00 Telephone Pgy3 [facility] 1..114 350.1.13.10 4.2.7.2.686 [id number] [facility] 2022-03-14 00:00:00 2022-03-14 00:00:00 Outpatient Visit [id number] 2022-02-22 13:30:00 2022-02-22 14:52:16 Outpatient R MICAH DOWNS [facility] [id number] [facility] 2022-02-22 13:30:00 2022-02-22 14:52:16 Office Visit Pgy3 Micah Downs [facility] 1..840.114 350.1.13.10 4.2.7.2.686 [id number] [facility] 2022-02-22 13:30:00 2022-02-22 14:52:16 Outpatient R MICAH DOWNS [facility] [id number] [facility] 2022-01-22 14:45:00 2022-01-22 15:58:53 Office Visit Rosemary Holloway [facility] 1.2.840.114 350.1.13.10 4.2.7.2.686 [id number] [facility] 2022-01-22 14:45:00 2022-01-22 15:58:53 Outpatient R ROSEMARY HOLLOWAY [facility] [id number] [facility] 2022-01-22 14:45:00 2022-01-22 14:45:00 Outpatient R ROSEMARY HOLLOWAY [facility] [id number] [facility] 2022-01-20 16:50:00 2022-01-20 20:47:00 Emergency X HONEY ZARAGOZA [facility] ERT [id number] [facility] 2022-01-20 16:50:00 2022-01-20 20:47:00 Emergency Honey Zaragoza L [facility] 1.840.114 350.1.13.10 4.2.7.2.686 [id number] [facility] 2022-01-20 16:50:00 2022-01-20 20:47:00 Emergency X HONEY ZARAGOZA [facility] ERT [id number] [facility] 2022-01-05 15:00:00 2022-01-05 16:11:30 Office Visit Rosemary Holloway [facility] 1.840.114 350.1.13.10 4.2.7.2.686 [id number] [facility] 2022-01-05 15:00:00 2022-01-05 16:11:30 Outpatient R ROSEMARY HOLLOWAY [facility] [id number] [facility] 2022-01-05 15:00:00 2022-01-05 15:00:00 Outpatient R ROSEMARY HOLLOWAY [facility] [id number] [facility] 2022-01-05 00:00:00 2022-01-05 00:00:00 Orders Only Doctor Unassigned, Rodey [facility] 1.84.114 350.1.13.10 4.2.7.2.686 [id number] [facility] 2022-01-04 00:00:00 2022-01-04 00:00:00 Telephone Kvng Bennett [facility] 1.840.114 350.1.13.10 4.2.7.2.686 [id number] [facility] 2022-01-03 17:41:00 2022-01-03 19:42:00 Emergency X DEEPA QUINONES [facility] ERT [id number] [facility] 2022-01-03 17:41:00 2022-01-03 19:42:00 Emergency Deepa Quinones [facility] 1.2.840.114 350.1.13.10 4.2.7.2.686 [id number] [facility] 2022-01-03 00:00:00 2022-01-03 00:00:00 Orders Only Doctor Unassigned, Rodey [facility] 1.2.840.114 350.1.13.10 4.2.7.2.686 [id number] [facility] 2021-12-29 00:00:00 2021-12-29 00:00:00 Orders Only Doctor Unassigned, Rodey [facility] 1.2.840.114 350.1.13.10 4.2.7.2.686 [id number] [facility] 2021-02-19 17:49:00 2021-02-19 18:37:00 Emergency Betsy Pimentel [facility] 1.2.840.114 350.1.13.10 4.2.7.2.686 [id number] [facility] 2021-02-19 00:00:00 2021-02-19 00:00:00 Orders Only Doctor Unassigned, Rodey [facility] 1.2.840.114 350.1.13.10 4.2.7.2.686 [id number] [facility] 2020-02-21 13:53:23 2020-02-21 17:03:00 Emergency Anjel [facility] 1.2.840.114 350.1.13.10 4.2.7.2.686 [id number] [facility] 2020-02-21 13:53:23 2020-02-21 17:03:00 Emergency Anjel Braswell [facility] 1.2.840.114 350.1.13.10 4.2.7.2.686 [id number] Results Test Description Test Time Test Comments Results Result Co mments Source Kt DarbyCOMPREHENSIVE METABOLIC [id number] 00:00:00* Test Item Value Reference Range Interpretation Comme nts GLUCOSE (test code = 2217) 92 MG/DL BUN (test code = 2208) 8 MG/DL CREATININE (test code = 2214) 0.61 MG/DL eGFR (2020 CKD-EPI) (test code = 11050) 126 ML/MIN/1.73 CALC BUN/CREAT (test code = 2235) 13 RATIO SODIUM (test code = 2231) 143 MEQ/L POTASSIUM (test code = 2228) 4.6 MEQ/L CHLORIDE (test code = 2215) 106 MEQ/L CARBON DIOXIDE (test code = 2206) 26 MEQ/L CALCIUM (test code = 2209) 9.6 MG/DL PROTEIN, TOTAL (test code = 2229) 7.9 G/DL ALBUMIN (test code = 2201) 4.6 G/DL CALC GLOBULIN (test code = 2240) 3.3 G/DL CALC A/G RATIO (test code = 2234) 1.4 RATIO BILIRUBIN, TOTAL (test code = 2207) 0.5 MG/DL ALKALINE PHOSPHATASE (test code = 2204) 95 U/L AST (test code = 2218) 12 U/L ALT (test code = 2219) 13 U/L Kt [id number] 00:00:00* Test Item Value Reference Range Interpretation Comme abbe TSH, THIRD GENERATION (test code = 2821) 0.536 UIU/ML Kt DarbyLIPID [id number] 00:00:00* Test Item Value Reference Range Interpretation Comme nts CHOLESTEROL (test code = 2210) 185 MG/DL TRIGLYCERIDES (test code = 2232) 115 MG/DL HDL CHOLESTEROL (test code = 2220) 48 MG/DL CALC LDL CHOL (test code = 2237) 114 MG/DL RISK RATIO LDL/HDL (test cod e = 2238) 2.38 RATIO Kt DarbyVITAMIN [id number] 00:00:00* Test Item Value Reference Range Interpretation Comme nts VITAMIN B-12 (test code = 2840) 233 PG/ML Kt DarbyVITAMIN D, 25 [id number] 00:00:00* Test Item Value Reference Range Interpretation Comme [facility] VITAMIN D, 25 OH (test code = 4958) 12 NG/ML Kt DarbyVITAMIN D, 25 [id number] 06:34:29* Test Item Value Reference Range Interpretation Comme [facility] VITAMIN D, 25 OH (test code = 4958) 10 NG/ML SEE BELOW L NOTE: 25-HYDR OXYVITAMIN D ASSAY INCLUDES 25-HYDROXYVITAMIN D2 AND D3. METHODOLOGY IS CHEMILUMINESCENT IMMUNOASSAY. INTERPRETIVE RANGES PEDIATRIC (<17 YEARS) . . . . . . . . . . . NG/ML 20-100ADULT: INSUFFICIENT . . . . . . . . . . . . . . NG/ML <20 SUBOPTIMAL . . . . . . . . . . . . . . . NG/ML 20-29 OPTIMAL . . . . . . . . . . . . . . . . . NG/ML 30-100 UNLESS OTHERWISE INDICATED, ALL TESTING PERFORMED ATCLINICAL PATHOLOGY [employer] [address] [place] [address] [employer]E FURNITURE MAKER: JULIA PERALES M.D. CLIA NUMBER [id number] [facility] [place]. [id number] TSH, THIRD [id number] 06:15:03* Test Item Value Reference Range Interpretation Comme [facility] TSH, THIRD GENERATION (test code = 2821) 0.756 UIU/ML 0.400-4.100 CBC W/AUTO DIFF WITH [id number] 01:35:29* Test Item Value Reference Range Interpretation Comme [facility] WBC (test code = 1001) 9.7 K/UL 3.5-11.0 RBC (test code = 1002) 4.61 M/UL 3.80-5.40 HEMOGLOBIN (test code = 1003) 13.4 G/DL 11.5-15.5 HEMATOCRIT (test code = 1004) 40.2 % 34.0-45.0 MCV (test code = 1005) 87.2 fL 80.0-99.0 MCH (test code = 1006) 29.1 PG 25.0-33.0 MCHC (test code = 1007) 33.3 G/DL 31.0-36.0 RDW (test code = 1038) 12.7 % 11.5-15.0 NEUTROPHILS (test code = 1008) 63.5 % LYMPHOCYTES (test code = 1010) 24.2 % MONOCYTES (test code = 1011) 7.6 % EOSINOPHILS (test code = 1012) 3.7 % BASOPHILS (test code = 1013) 0.6 % IMMATURE GRANYLOCYTES (test code = 1036) 0.4 % NUCLEATED RBCS (test code = 1065) 0.0 /100 WBC'S See_Comment [Automated messa ge] The system which generated this result transmitted reference range: 0.0. The reference range was not used to interpret this result as normal/abnormal. PLATELET COUNT (test code = 1015) 273 K/UL 130-400 ABSOLUTE NEUTROPHILS (test code = 1066) 6.13 K/UL 1.50-7.50 ABSOLUTE LYMPHOCYTES (test code = 1067) 2.34 K/UL 1.00-4.00 ABSOLUTE MONOCYTES (test code = 1068) 0.73 K/UL 0.20-1.00 ABSOLUTE EOSINOPHILS (test code = 1040) 0.36 K/UL 0.00-0.50 ABSOLUTE BASOPHILS (test code = 1069) 0.06 K/UL 0.00-0.20 ABS IMMATURE GRANULOCYTES (test code = 1020) 0.04 K/UL 0.00-0.10 ABS NUCLEATED RBCS (test code = 82759) 0.00 K/UL 0.00-0.11 CBC W/AUTO [id number] 00:00:00* Test Item Value Reference Range Interpretation Comme nts WBC (test code = 1001) 9.7 K/UL [...] = 1013) 0.6 % IMMATURE GRANYLOCYTES (test code = 1036) 0.4 % NUCLEATED RBCS (test code = 1065) 0.0 /100WBC'S PLATELET COUNT (test code = 1015) 273 K/UL ABSOLUTE NEUTROPHILS (test c ode = 1066) 6.13 K/UL ABSOLUTE LYMPHOCYTES (test c ode = 1067) 2.34 K/UL ABSOLUTE MONOCYTES (test cod e = 1068) 0.73 K/UL ABSOLUTE EOSINOPHILS (test c ode = 1040) 0.36 K/UL ABSOLUTE BASOPHILS (test cod e = 1069) 0.06 K/UL ABS IMMATURE GRANULOCYTES (t est code = 1020) 0.04 K/UL ABS NUCLEATED RBCS (test cod e = 01714) 0.00 K/UL Kt [id number] 00:00:00* Test Item Value Reference Range Interpretation Comme nts TSH, THIRD GENERATION (test code = 2821) 0.756 UIU/ML Kt Phan WilnerVITAMIN D, 25 [id number] 00:00:00* Test Item Value Reference Range Interpretation Comme nts VITAMIN D, 25 OH (test code = 4958) 10 NG/ML Kt Phan WilnerCBC W/AUTO [id number] 00:00:00* Test Item Value Reference Range Interpretation Comme nts WBC (test code = 1001) 9.7 K/UL [...] = 1013) 0.6 % IMMATURE GRANYLOCYTES (test code = 1036) 0.4 % NUCLEATED RBCS (test code = 1065) 0.0 /100WBC'S PLATELET COUNT (test code = 1015) 273 K/UL ABSOLUTE NEUTROPHILS (test c ode = 1066) 6.13 K/UL ABSOLUTE LYMPHOCYTES (test c ode = 1067) 2.34 K/UL ABSOLUTE MONOCYTES (test cod e = 1068) 0.73 K/UL ABSOLUTE EOSINOPHILS (test c ode = 1040) 0.36 K/UL ABSOLUTE BASOPHILS (test cod e = 1069) 0.06 K/UL ABS IMMATURE GRANULOCYTES (t est code = 1020) 0.04 K/UL ABS NUCLEATED RBCS (test cod e = 46329) 0.00 K/UL CBC W/AUTO [id number] 00:00:00* Test Item Value Reference Range Interpretation Comme nts WBC (test code = 1001) 9.7 K/UL [...] = 1013) 0.6 % IMMATURE GRANYLOCYTES (test code = 1036) 0.4 % NUCLEATED RBCS (test code = 1065) 0.0 /100WBC'S PLATELET COUNT (test code = 1015) 273 K/UL ABSOLUTE NEUTROPHILS (test c ode = 1066) 6.13 K/UL ABSOLUTE LYMPHOCYTES (test c ode = 1067) 2.34 K/UL ABSOLUTE MONOCYTES (test cod e = 1068) 0.73 K/UL ABSOLUTE EOSINOPHILS (test c ode = 1040) 0.36 K/UL ABSOLUTE BASOPHILS (test cod e = 1069) 0.06 K/UL ABS IMMATURE GRANULOCYTES (t est code = 1020) 0.04 K/UL ABS NUCLEATED RBCS (test cod e = 72968) 0.00 K/UL CBC W/AUTO [id number] 00:00:00* Test Item Value Reference Range Interpretation Comme nts WBC (test code = 1001) 9.7 K/UL [...] = 1013) 0.6 % IMMATURE GRANYLOCYTES (test code = 1036) 0.4 % NUCLEATED RBCS (test code = 1065) 0.0 /100WBC'S PLATELET COUNT (test code = 1015) 273 K/UL ABSOLUTE NEUTROPHILS (test c ode = 1066) 6.13 K/UL ABSOLUTE LYMPHOCYTES (test c ode = 1067) 2.34 K/UL ABSOLUTE MONOCYTES (test cod e = 1068) 0.73 K/UL ABSOLUTE EOSINOPHILS (test c ode = 1040) 0.36 K/UL ABSOLUTE BASOPHILS (test cod e = 1069) 0.06 K/UL ABS IMMATURE GRANULOCYTES (t est code = 1020) 0.04 K/UL ABS NUCLEATED RBCS (test cod e = 98971) 0.00 K/UL [id number] 00:00:00* Test Item Value Reference Range Interpretation Comme nts TSH, THIRD GENERATION (test code = 2821) 0.756 UIU/ML [id number] 00:00:00* Test Item Value Reference Range Interpretation Comme nts TSH, THIRD GENERATION (test code = 2821) 0.756 UIU/ML [id number] 00:00:00* Test Item Value Reference Range Interpretation Comme nts TSH, THIRD GENERATION (test code = 2821) 0.756 UIU/ML VITAMIN D, 25 [id number] 00:00:00* Test Item Value Reference Range Interpretation Comme nts VITAMIN D, 25 OH (test code = 4958) 10 NG/ML VITAMIN D, 25 [id number] 00:00:00* Test Item Value Reference Range Interpretation Comme nts VITAMIN D, 25 OH (test code = 4958) 10 NG/ML CBC W/AUTO [id number] 00:00:00* Test Item Value Reference Range Interpretation Comme nts WBC (test code = 1001) 9.7 K/UL [...] = 1013) 0.6 % IMMATURE GRANYLOCYTES (test code = 1036) 0.4 % NUCLEATED RBCS (test code = 1065) 0.0 /100WBC'S PLATELET COUNT (test code = 1015) 273 K/UL ABSOLUTE NEUTROPHILS (test c ode = 1066) 6.13 K/UL ABSOLUTE LYMPHOCYTES (test c ode = 1067) 2.34 K/UL ABSOLUTE MONOCYTES (test cod e = 1068) 0.73 K/UL ABSOLUTE EOSINOPHILS (test c ode = 1040) 0.36 K/UL ABSOLUTE BASOPHILS (test cod e = 1069) 0.06 K/UL ABS IMMATURE GRANULOCYTES (t est code = 1020) 0.04 K/UL ABS NUCLEATED RBCS (test cod e = 97487) 0.00 K/UL CBC W/AUTO [id number] 00:00:00* Test Item Value Reference Range Interpretation Comme nts WBC (test code = 1001) 9.7 K/UL [...] = 1013) 0.6 % IMMATURE GRANYLOCYTES (test code = 1036) 0.4 % NUCLEATED RBCS (test code = 1065) 0.0 /100WBC'S PLATELET COUNT (test code = 1015) 273 K/UL ABSOLUTE NEUTROPHILS (test c ode = 1066) 6.13 K/UL ABSOLUTE LYMPHOCYTES (test c ode = 1067) 2.34 K/UL ABSOLUTE MONOCYTES (test cod e = 1068) 0.73 K/UL ABSOLUTE EOSINOPHILS (test c ode = 1040) 0.36 K/UL ABSOLUTE BASOPHILS (test cod e = 1069) 0.06 K/UL ABS IMMATURE GRANULOCYTES (t est code = 1020) 0.04 K/UL ABS NUCLEATED RBCS (test cod e = 24328) 0.00 K/UL CBC W/AUTO [id number] 00:00:00* Test Item Value Reference Range Interpretation Comme nts WBC (test code = 1001) 9.7 K/UL [...] = 1013) 0.6 % IMMATURE GRANYLOCYTES (test code = 1036) 0.4 % NUCLEATED RBCS (test code = 1065) 0.0 /100WBC'S PLATELET COUNT (test code = 1015) 273 K/UL ABSOLUTE NEUTROPHILS (test c ode = 1066) 6.13 K/UL ABSOLUTE LYMPHOCYTES (test c ode = 1067) 2.34 K/UL ABSOLUTE MONOCYTES (test cod e = 1068) 0.73 K/UL ABSOLUTE EOSINOPHILS (test c ode = 1040) 0.36 K/UL ABSOLUTE BASOPHILS (test cod e = 1069) 0.06 K/UL ABS IMMATURE GRANULOCYTES (t est code = 1020) 0.04 K/UL ABS NUCLEATED RBCS (test cod e = 53352) 0.00 K/UL [id number] 00:00:00* Test Item Value Reference Range Interpretation Comme nts TSH, THIRD GENERATION (test code = 2821) 0.756 UIU/ML [id number] 00:00:00* Test Item Value Reference Range Interpretation Comme nts TSH, THIRD GENERATION (test code = 2821) 0.756 UIU/ML [id number] 00:00:00* Test Item Value Reference Range Interpretation Comme nts TSH, THIRD GENERATION (test code = 2821) 0.756 UIU/ML VITAMIN D, 25 [id number] 00:00:00* Test Item Value Reference Range Interpretation Comme [facility] VITAMIN D, 25 OH (test code = 4958) 10 NG/ML VITAMIN D, 25 [id number] 00:00:00* Test Item Value Reference Range Interpretation Comme nts VITAMIN D, 25 OH (test code = 4958) 10 NG/ML CBC W/AUTO [id number] 00:00:00* Test Item Value Reference Range Interpretation Comme nts WBC (test code = 1001) 9.7 K/UL [...] = 1013) 0.6 % IMMATURE GRANYLOCYTES (test code = 1036) 0.4 % NUCLEATED RBCS (test code = 1065) 0.0 /100WBC'S PLATELET COUNT (test code = 1015) 273 K/UL ABSOLUTE NEUTROPHILS (test c ode = 1066) 6.13 K/UL ABSOLUTE LYMPHOCYTES (test c ode = 1067) 2.34 K/UL ABSOLUTE MONOCYTES (test cod e = 1068) 0.73 K/UL ABSOLUTE EOSINOPHILS (test c ode = 1040) 0.36 K/UL ABSOLUTE BASOPHILS (test cod e = 1069) 0.06 K/UL ABS IMMATURE GRANULOCYTES (t est code = 1020) 0.04 K/UL ABS NUCLEATED RBCS (test cod e = 35894) 0.00 K/UL CBC W/AUTO [id number] 00:00:00* Test Item Value Reference Range Interpretation Comme nts WBC (test code = 1001) 9.7 K/UL [...] = 1013) 0.6 % IMMATURE GRANYLOCYTES (test code = 1036) 0.4 % NUCLEATED RBCS (test code = 1065) 0.0 /100WBC'S PLATELET COUNT (test code = 1015) 273 K/UL ABSOLUTE NEUTROPHILS (test c ode = 1066) 6.13 K/UL ABSOLUTE LYMPHOCYTES (test c ode = 1067) 2.34 K/UL ABSOLUTE MONOCYTES (test cod e = 1068) 0.73 K/UL ABSOLUTE EOSINOPHILS (test c ode = 1040) 0.36 K/UL ABSOLUTE BASOPHILS (test cod e = 1069) 0.06 K/UL ABS IMMATURE GRANULOCYTES (t est code = 1020) 0.04 K/UL ABS NUCLEATED RBCS (test cod e = 78040) 0.00 K/UL CBC W/AUTO [id number] 00:00:00* Test Item Value Reference Range Interpretation Comme nts WBC (test code = 1001) 9.7 K/UL [...] = 1013) 0.6 % IMMATURE GRANYLOCYTES (test code = 1036) 0.4 % NUCLEATED RBCS (test code = 1065) 0.0 /100WBC'S PLATELET COUNT (test code = 1015) 273 K/UL ABSOLUTE NEUTROPHILS (test c ode = 1066) 6.13 K/UL ABSOLUTE LYMPHOCYTES (test c ode = 1067) 2.34 K/UL ABSOLUTE MONOCYTES (test cod e = 1068) 0.73 K/UL ABSOLUTE EOSINOPHILS (test c ode = 1040) 0.36 K/UL ABSOLUTE BASOPHILS (test cod e = 1069) 0.06 K/UL ABS IMMATURE GRANULOCYTES (t est code = 1020) 0.04 K/UL ABS NUCLEATED RBCS (test cod e = 13537) 0.00 K/UL [id number] 00:00:00* Test Item Value Reference Range Interpretation Comme nts TSH, THIRD GENERATION (test code = 2821) 0.756 UIU/ML [id number] 00:00:00* Test Item Value Reference Range Interpretation Comme nts TSH, THIRD GENERATION (test code = 2821) 0.756 UIU/ML [id number] 00:00:00* Test Item Value Reference Range Interpretation Comme nts TSH, THIRD GENERATION (test code = 2821) 0.756 UIU/ML VITAMIN D, 25 [id number] 00:00:00* Test Item Value Reference Range Interpretation Comme nts VITAMIN D, 25 OH (test code = 4958) 10 NG/ML VITAMIN D, 25 [id number] 00:00:00* Test Item Value Reference Range Interpretation Comme nts VITAMIN D, 25 OH (test code = 4958) 10 NG/ML SARS-CoV-2 (COVID-19) by RT-PCR (HIGH RISK)2021-04-16 00:00:00* Test Item Value Reference Range Interpretation Comme nts SARS-CoV-2 INTERPRETATION (test code = 31588) NEGATIVE SOURCE (test code = 15574) NASOPHARYNGEAL Kt F [id number] (COVID-19) by RT-PCR (HIGH RISK)2021-04-16 00:00:00* Test Item Value Reference Range Interpretation Comme nts SARS-CoV-2 INTERPRETATION (test code = 90718) NEGATIVE SOURCE (test code = 06420) NASOPHARYNGEAL SARS-CoV-2 (COVID-19) by RT-PCR (HIGH RISK)2021-04-16 00:00:00* Test Item Value Reference Range Interpretation Comme nts SARS-CoV-2 INTERPRETATION (test code = 66105) NEGATIVE SOURCE (test code = 14491) NASOPHARYNGEAL SARS-CoV-2 (COVID-19) by RT-PCR (HIGH RISK)2021-04-16 00:00:00* Test Item Value Reference Range Interpretation Comme nts SARS-CoV-2 INTERPRETATION (test code = 30095) NEGATIVE SOURCE (test code = 97524) NASOPHARYNGEAL SARS-CoV-2 (COVID-19) by RT-PCR (HIGH RISK)2021-04-16 00:00:00* Test Item Value Reference Range Interpretation Comme nts SARS-CoV-2 INTERPRETATION (test code = 91397) NEGATIVE SOURCE (test code = 30858) NASOPHARYNGEAL SARS-CoV-2 (COVID-19) by RT-PCR (HIGH RISK)2021-04-16 00:00:00* Test Item Value Reference Range Interpretation Comme nts SARS-CoV-2 INTERPRETATION (test code = 84087) NEGATIVE SOURCE (test code = 83079) NASOPHARYNGEAL SARS-CoV-2 (COVID-19) by RT-PCR (HIGH RISK)2021-04-16 00:00:00* Test Item Value Reference Range Interpretation Comme nts SARS-CoV-2 INTERPRETATION (test code = 79981) NEGATIVE SOURCE (test code = 01658) NASOPHARYNGEAL Notes Date/Time Note Provider Source 2023-11-21 00:00:00 [id number] T00:00:00+ + +| Plan Activity | Plan Date |+ + +| prednisone, | 2019-08-26 || loratadine | || RTO if symptoms do not improve or worsen in 7-10 days. | |+ + +| A1c, CBC, CMP, Lipid panel | 2019-09-28 |+ + +| A1c, CBC, CMP, Lipid panel | 2019-09-28 || Clinical treatment will be based on results | |+ + +| Take antibiotics with food. Take Bromfed DM q 6 hours prn cough. Drink 1.5L | 2019-10-03 || water a day. Recommend drinking chamomile tea with lemon and honey. RTO if | || symptoms do not improve or worsen. | |+ + +| refill cetirizine | 2023-02-12 || RTC if symptoms worsen or persist | |+ + +| Well woman exam without gynecological portion - that was completed a year ago | 2019-10-18 || You can take charge of your health by staying current on well-care visits, | || screenings, and immunizations. Our goal is to help you live a healthier and | || happier life through preventive care. | || Recommend annual blood work: Complete Blood Count, Comprehensive metabolic | || panel, fasting lipid panel and TSH. | || Recommend a Tetanus-diphtheria every 10 years and a Flu vaccine every year | || unless it is contraindicated. | || HIV test one time during adulthood (through age 64) | || Take a daily multivitamin | || Occasionally check your blood pressure and notify the clinic if your blood | || pressure is over 140/80 or lower than 80/60. | || Schedule annual examination | || CBC, CMP, A1c, and fasting lipid panel | |+ + +| Limit fat intake to no more than 20% to 35% of your total calorie intake. For a | 2019-10-03 || person following a 1,800-calorie diet, this means eating no more than 40 to 70 | || grams of fat each day. | || Choose complex carbohydrates, such as whole grains, vegetables, and fruits. | || About 45% to 65% of your total calorie intake should come from carbohydrate. | || For someone following a 1,800-calorie diet, this means eating about 200 to 300 | || grams of carbohydrate each day. | || Choose low-fat protein sources, such as fish, poultry, and legumes (for | || example, parker beans, lentils, and split peas). About 10% to 35% of your total | || calorie intake should come from protein. For someone following a 1,800-calorie | || diet, this means eating about 45 to 160 grams of protein each day. | || Get enough fiber each day. Men should aim for 38 grams a day, and women should | || aim for 25 grams a day. | || Have no more than 1 alcohol drink a day for women and 2 alcohol drinks a day | || for men. | || Appended: 2019-10-03 | || Recommend healthy eating with foods from a variety of food groups. Encourage to | || eat more vegetables and appropriate portion sizes, and few sugary | || snacks/drinks/sodas. | || Recommend exercising daily 20-30 minutes a day. Recommend 5-10 pound weight | || loss | |+ + +| COVID 19 + | 2021-03-21 |+ + +| [place] diet | 2021-04-10 || Replace electroloytes (Gatorade/Powerade) | || 1.5L-2L water consumption daily | || RTO if s/s worsen/persist | |+ + +| COVID positive | 2023-02-12 || symptomatic care | || quarantine based on CDC guidelines | || RTC if symptoms worsen or persist | |+ + +| will tx for presumptive OM, as pt has had nasal congestion for 4 days now | 2021-04-14 || will tx with Azithromycin, 500 mg orally on day 1, then 250 mg orally days 2 | || through 5 r/t ALVARADON allergangelina | || start antihistamine daily | |+ + +| will send over antihistmaine to start daily | 2021-04-14 || Increase water intake | || Hand hygiene - good hand washing | || Minimize contact with others | || Humidify air to prevent drying of respiratory secretions. Recommend steam | || inhalation 20-30 minutes three times daily | || Saline irrigation (Neti pot) or saline nose drops for nasal congestion. | || Avoid exposure to cigarette smoke or fumes. | || Avoid caffeine and alcohol. | || Increase fluids. | || Get plenty of rest. | || Discussed purpose and side effects of prescribed medications. | |+ + +| rx ibuprofen | 2021-04-14 || Stay hydrated well | || limit sound and visual stimuli | |+ + +| diet and exercise | 2021-07-31 |+ + +| CBC, TSH , Vitamine D and COVID testing | 2021-07-31 || await results. RTO 1 month to evaluate | || recommend eating more green leafy vegetables. | |+ + +| weight and height disproportionate | 2022-04-11 || Obesity class I | || Therapeutic lifestyle modifications required | |+ + +| referral gynecology | 2021-12-28 || ibuprofen 800 mg TID | || RTC 1 month for follow-up | |+ + +| referral gynecology | 2021-12-28 || ibuprofen 800 mg TID | || RTC 1 month for follow-up | |+ + +| Hospital admission | 2021-12-28 || Dx: ovarian cyst bilateral | || Sign medical release | |+ + +| weight and height disproportionate | 2022-03-14 || Obesity class II | || therapeutic lifestyle changes warranted | |+ + +| Zofran 4mg | 2022-03-14 || RTC if symptoms | |+ + +| OTC Miralax | 2022-03-14 || RTC if symptoms worsen or persist | |+ + +| Dietary and lifestyle modifications including probiotics intake | 2022-03-14 || Simethicone | || RTC if symptoms worsen or persist | |+ + +| H pylori | 2022-03-14 || await results | || RTC 1-2 weeks for follow-up | |+ + +| Start Tri-Lo Sprintec | 2023-05-22 || RTC 3 months for follow-up | |+ + +| Discontinue Depo Provera | 2022-04-11 || No injection today | || see plan above | |+ + +| TSH, CBC,, lipid, CMP, vitamin D, b12 | 2022-07-06 |+ + +| vitamin D pending | 2022-07-06 |+ + +| BH referral | 2022-07-06 |+ + +| Weight and height disproportionate | 2023-02-20 || Therapeutic lifestyle changes warranted | |+ + +| work note given | 2023-02-20 || Remain quarantined until afebrile for 24 hours without antipyretics | || Continue to wear a mask | || Adhere to all CDC COVID guidelines | |+ + +| Discussed contraception options. | 2023-05-22 || Discussed side effects. | || Patient education given | |+ + +| RTO for flu test | 2023-11-21 |+ + +| Inhaler | 2023-11-21 |+ + +[id number] of TreatmentLNCARE PLANTXTSFA|[id number] for patient [id number] Section NarrativeNARRATIVEFormatted C-CDA narrative textSFAStvirgen Mckeon [facility]2024-04-30T00:00:00 Kt Mckeon [facility]"
[2024-02-16] MEDS ORDERED: METOCLOPRAMIDE 10 MG/2mL INJ ONE (19:20)
[2024-02-16] MEDS ORDERED: DIPHENHYDRAMINE 50 MG/ML VIAL ONE (19:20)
[2024-02-16] MEDS ORDERED: NA CHLORIDE 0.9% 1,000 ML ONE (19:20)
[2024-02-16] MEDS ORDERED: KETOROLAC 30 MG/ML INJ ONE (19:20)
[2024-02-16 19:35] LABS: Absolute Eosinophils 0.4 K/uL (0-0.5); Absolute Lymphocytes (CBC) 3.1 K/uL (0.7-4.9); Absolute Monocytes 0.6 K/uL (0.1-1.3); Basophils % 0.5 % (0-1.3); Eosinophils % 4.9 % (0-4.4); Hematocrit 40.4 % (36.0-45.0); Hemoglobin 13.9 g/dL (12.0-15.0); Lymphocytes % 37.6 % (15.3-44.8); MCH 31.9 pg (27.0-35.0); MCHC 34.4 g/dL (32.0-36.0); MCV 92.7 fL (80-100); MPV 8.9 fL (7.6-11.3); Monocytes % 7.9 % (3.3-12.3); Neutrophils % 49.1 % (41.7-73.7); Nucleated Red Blood Cells % 0.2 % (0-0); Platelets 248 thou/uL (152-406); RBC Red Blood Cell Count 4.36 M/uL (3.86-4.86); Red Cell Distribution Width 12.1 % (12.1-15.2)
--- NOTE | 2024-02-16 19:52 | RAD REPORT ---
EXAM DESCRIPTION: RAD - Chest Single View - 02/16/2024 7:45 pm CLINICAL HISTORY: CHEST PAIN COMPARISON: <Comparisons> FINDINGS: Lines: None. Lungs: No evidence of edema or pneumonia. Pleural: No significant pleural effusions or pneumothorax. Cardiac: The heart size is within normal limits. Mediastinum: Within normal limits. Bones: No acute fractures. Other: None IMPRESSION: No acute cardiopulmonary disease.
[2024-02-16 19:54] LABS: ALT/SGPT 25 U/L (13-56); AST/SGOT 17 U/L (15-37); Albumin 3.5 g/dL (3.4-5.0); Albumin/Globulin Ratio 0.8 (1.1-1.8); Alkaline Phosphatase 87 U/L (45-117); Anion Gap 7.8 mEq/L (5.0-15.0); BUN Blood Urea Nitrogen 12 mg/dL (7-18); Bicarbonate 28 mEq/L (21-32); Bilirubin Direct < 0.2 mg/dL (0-0.2); Bilirubin Indirect, Calculated 0.2 mg/dL (0.2-0.8); Bilirubin Total 0.4 mg/dL (0.2-1.0); Globulin 4.2 g/dL (2.3-3.5); Glomerular Filtration Rate 122 ml/min (=/>90); Glucose Level 103 mg/dL (74-106); Magnesium 2.1 mg/dL (1.6-2.4); NT PRO-BNP 21 pg/mL (<125); Potassium 3.8 mEq/L (3.5-5.1); Protein, Total 7.7 g/dL (6.4-8.2); Sodium Level 139 mEq/L (136-145); Troponin High Sensitivity < 3.0 pg/mL (<58.9)
--- NOTE | 2024-02-16 20:59 | EDPHYS ---
Physician Documentation [facility] Name: Caitlin Mcgovern Age: 28 yrs Sex: Female : 1995 Arrival Date: 02/16/2024 Time: 18:52 Bed 12 Private MD: ED Physician Vickey Rosales HPI: 02/15 21:09 This 28 yrs old Female presents to ER via Ambulatory with complaints of rt Numbness - of left side, Chest Pain, Headache, Dizziness. 21:09 Patient presents to the ED with 1 day of chest pain, headache that is not like her rt typical migraines as well as a tingling sensation on her left arm. Denies other acute complaints at this time, symptoms are moderate in severity, no other aggravating or elevating factors.. 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 - Infectious Disease History:: Denies. - Social history:: Smoking status: Patient denies any tobacco usage or history of. - Family history:: not pertinent. ROS: 21:09 Constitutional: Negative for fever, chills, and weight loss, Respiratory: Negative for rt shortness of breath, cough, wheezing, and pleuritic chest pain, Abdomen/GI: Negative for abdominal pain, nausea, vomiting, diarrhea, and constipation, Skin: Negative for injury, rash, and discoloration, 21:09 Cardiovascular: Positive for chest pain, Negative for edema, 21:09 Neuro: Positive for headache, tingling, Exam: 21:09 Constitutional: This is a well developed, well nourished patient who is awake, alert, rt and in no acute distress. Head/Face: Normocephalic, atraumatic. Chest/axilla: Normal chest wall appearance and motion. Nontender with no deformity. No lesions are appreciated. Cardiovascular: Regular rate and rhythm with a normal S1 and S2. No gallops, murmurs, or rubs. Normal PMI, no JVD. No pulse deficits. Respiratory: Lungs have equal breath sounds bilaterally, clear to auscultation and percussion. No rales, rhonchi or wheezes noted. No increased work of breathing, no retractions or nasal flaring. Abdomen/GI: Soft, non-tender, with normal bowel sounds. No distension or tympany. No guarding or rebound. No evidence of tenderness throughout. Skin: Warm, dry with normal turgor. Normal color with no rashes, no lesions, and no evidence of cellulitis. MS/ Extremity: Pulses equal, no cyanosis. Neurovascular intact. Full, normal range of motion. Neuro: Awake and alert, GCS 15, oriented to person, place, time, and situation. Cranial nerves II-XII grossly intact. Motor strength 5/5 in all extremities. Sensory grossly intact. Cerebellar exam normal. Normal gait. 21:09 ECG was reviewed by the Attending Physician. Vital Signs: 19:06 BP 131 / 84; Pulse 79; Resp 16; Temp 97.6(TE); Pulse Ox 100% on R/A; Weight 79.83 kg; tl4 Height 4 ft. 11 in. ; Pain 6/10; 20:48 BP 113 / 76; Pulse 78; Resp 18; Pulse Ox 100% on R/A; mb9 19:06 Body Mass Index 35.55 (79.83 kg, 149.86 cm) tl4 19:06 Pain Scale: Adult tl4 MDM: 19:17 Patient medically screened. rt 21:09 Data reviewed: vital signs, nurses notes, lab test result(s), EKG, radiologic studies. rt I considered the following discharge prescriptions or medication management in the emergency department Medications were administered in the Emergency Department. See MAR. Independent interpretation of the following test(s) in the Emergency Department X-Ray: My interpretation is No pneumonia seen on interpretation of x-ray images. Test considered but Not performed: CT: No focal neurodeficits, CT scan not indicated. Scoring Tools HEART Score: History: Slightly Suspicious (0) ECG: Normal (0) Age: < or = 45 years (0) Risk Factors: No Risk factors known (0) Troponin: < or = 1 x Normal limit (0) Total Score = 0. Counseling: I had a detailed discussion with the patient and/or guardian regarding the historical points, exam findings, and any diagnostic results supporting the discharge/admit diagnosis, lab results, radiology results, the need for outpatient follow up, to return to the emergency department if symptoms worsen or persist or if there are any questions or concerns that arise at home. Response to treatment: the patient's symptoms have resolved after treatment. 02/15 19:18 Order name: Basic Metabolic Panel; Complete Time: 20:03 rt 02/15 19:18 Order name: CBC with Diff; Complete Time: 19:54 rt 02/15 19:18 Order name: LFT's; Complete Time: 20:03 rt 02/15 19:18 Order name: Magnesium; Complete Time: 20:03 rt 02/15 19:18 Order name: NT PRO-BNP; Complete Time: 20:03 rt 02/15 19:18 Order name: Troponin HS; Complete Time: 20:03 rt 02/15 19:18 Order name: XRAY Chest (1 view); Complete Time: 19:54 rt 02/15 19:18 Order name: Cardiac monitoring; Complete Time: 19:18 rt 02/15 19:18 Order name: EKG - Nurse/Tech; Complete Time: 19:25 rt 02/15 19:18 Order name: IV Saline Lock; Complete Time: 19:32 rt 02/15 19:18 Order name: Labs collected and sent; Complete Time: 19:32 rt 02/15 19:18 Order name: O2 Per Protocol; Complete Time: 19:32 rt 02/15 19:18 Order name: O2 Sat Monitoring; Complete Time: 19:32 rt EC:09 Rate is 68 beats/min. Rhythm is regular, Normal Sinus Rhythm with No ectopy. QRS [place] rt is Normal. SD interval is normal. QRS interval is normal. QT interval is normal. No Q waves. T waves are Normal. No ST changes noted. Interpreted by me. Administered Medications: 19:28 Drug: metoCLOPramide IVP 10 mg IVP once; over 1 to 2 minutes Route: IVP; Site: left mb9 antecubital; 20:28 Follow up: Response: No adverse reaction mb9 19:30 Drug: Ketorolac IVP 15 mg IVP once Route: IVP; Site: left antecubital; mb9 20:28 Follow up: Response: No adverse reaction mb9 19:32 Drug: diphenhydrAMINE IVP 25 mg IVP once Route: IVP; Site: left antecubital; mb9 20:28 Follow up: Response: No adverse reaction mb9 19:32 Drug: NS 0.9% IV 1000 ml IV at 1 bolus Per protocol; 1000 mL bolus Route: IV; Rate: 1 mb9 bolus; Site: left antecubital; 20:28 Follow up: Response: No adverse reaction; IV Status: Completed infusion mb9 Disposition Summary: 02/16/24 20:58 Discharge Ordered Notes: Location: Home rt Problem: new rt Symptoms: have improved rt Condition: Stable rt Diagnosis - Chest pain, unspecified rt - Headache rt Followup: rt - With: Private Physician - When: 2 - 3 days - Reason: Discharge Instructions: - Discharge Summary Sheet mb9 - Nonspecific Chest Pain, Adult rt - General Headache Without Cause rt Forms: - Work release form mb9 - Medication Reconciliation Form rt - Antibiotic Education rt - Prescription Opioid Use rt - Patient Portal Instructions rt - Leadership Thank You Letter rt Signatures: Dispatcher [employer] Luzmaria Grey RN RN mb9 Vickey Rosales MD MD rt Vimal London RN RN tl4 Corrections: (The following items were deleted from the chart) 19:19 19:19 BASIC METABOLIC PANEL+C.LAB.BRZ ordered. EDMS EDMS 19:19 19:19 CBC+H.LAB.BRZ ordered. EDMS EDMS 19:19 19:19 HEPATIC FUNCTION+C.LAB.BRZ ordered. EDMS EDMS 19:19 19:19 MAGNESIUM+C.LAB.BRZ ordered. EDMS EDMS 19:19 19:19 PROBNP+C.LAB.BRZ ordered. EDMS EDMS 19:19 19:19 Troponin High Sensitivity+C.LAB.BRZ ordered. EDMS EDMS 21:12 21:09 Rate is 84 beats/min. Rhythm is regular, Normal Sinus Rhythm with No ectopy. QRS rt [place] is Normal. SD interval is normal. QRS interval is normal. QT interval is normal. No Q waves. T waves are Normal. No ST changes noted. Interpreted by me. rt
--- NOTE | 2024-02-16 20:59 | ER ---
Nurse's Notes [facility] Name: Caitlin Mcgovern Age: 28 yrs Sex: Female : 1995 Arrival Date: 02/16/2024 Time: 18:52 Bed 12 Private MD: Diagnosis: Chest pain, unspecified;Headache Presentation: 02/15 19:06 Chief complaint: Patient states: Pt c/o headache, feeling lightheaded, nausea, and tl4 weakness since last night. Pt states she was laying in bed when she got a transient sharp left side chest pain. Legs have felt heavy for 'a couple of days'. Pt states this headache is different from her migraines. Pt states she feels 'funny, just not right'. Coronavirus screen: At this time, the client does not indicate any symptoms associated with coronavirus-19. Ebola Screen: No symptoms or risks identified at this time. Initial Sepsis Screen: Does the patient meet any 2 criteria? No. Patient's initial sepsis screen is negative. Does the patient have a suspected source of infection? No. Patient's initial sepsis screen is negative. Risk Assessment: Do you want to hurt yourself or someone else? Patient reports no desire to harm self or others. Onset of symptoms was February 14, 2024. 19:06 Method Of Arrival: Ambulatory tl4 19:06 Acuity: PRERNA 3 tl4 Triage Assessment: 19:10 General: Appears in no apparent distress. Behavior is calm, cooperative. Pain: tl4 Complains of pain in scalp. EENT: No signs and/or symptoms were reported regarding the EENT system. Neuro: Level of Consciousness is awake, alert, obeys commands, Oriented to person, place, time, situation. Neuro: Reports headache numbness weakness. Cardiovascular: Reports chest pain, Capillary refill < 3 seconds Patient's skin is warm and dry. Cardiovascular: Reports lightheadedness. Respiratory: Reports shortness of breath Airway is patent Respiratory effort is even, unlabored, Respiratory pattern is regular, symmetrical. GI: No signs and/or symptoms were reported involving the gastrointestinal system. : No signs and/or symptoms were reported regarding the genitourinary system. Derm: No signs and/or symptoms reported regarding the dermatologic system. Musculoskeletal: No signs and/or symptoms reported regarding the musculoskeletal system. 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 - Infectious Disease History:: Denies. - Social history:: Smoking status: Patient denies any tobacco usage or history of. - Family history:: not pertinent. Screenin:17 [facility] ED Fall Risk Assessment (Adult) History of falling in the last 3 months, mb9 including since admission No falls in past 3 months (0 pts) Confusion or Disorientation No (0 pts) Intoxicated or Sedated No (0 pts) Impaired Gait No (0 pts) Mobility Assist Device Used No (0 pt) Altered Elimination No (0 pt) Score/Fall Risk Level 0 - 2 = Low Risk Oriented to surroundings, Maintained a safe environment, Educated pt \T\ family on fall prevention, incl call for assistance when getting out of bed. Abuse screen: Denies threats or abuse. Nutritional screening: No deficits noted. Tuberculosis screening: No symptoms or risk factors identified. Assessment: 19:33 General: Appears in no apparent distress. Behavior is calm, cooperative. Pain: mb9 Complains of pain in chest and head Pain currently is 8 out of 10 on a pain scale. Quality of pain is described as throbbing, Pain began gradually, Is intermittent. Neuro: Kwon Agitation-Sedation Scale (RASS): 0 - Alert and Calm Level of Consciousness is awake, alert, obeys commands, Oriented to person, place, time, situation, Appropriate for age Reports headache weakness. Cardiovascular: Patient's skin is warm and dry. Cardiovascular: Reports chest pain, Heart tones S1 S2 present. Respiratory: Airway is patent Respiratory effort is even, unlabored, Respiratory pattern is regular, symmetrical, Breath sounds are clear bilaterally. GI: Reports nausea. : No signs and/or symptoms were reported regarding the genitourinary system. EENT: No signs and/or symptoms were reported regarding the EENT system. Derm: Skin is pink, warm \T\ dry. Musculoskeletal: Range of motion: intact in all extremities. 20:48 Reassessment: Patient and/or family updated on plan of care and expected duration. Pain mb9 level reassessed. Patient is alert, oriented x 3, equal unlabored respirations, skin warm/dry/pink. Patient states feeling better. Patient states symptoms have improved. Vital Signs: 19:06 BP 131 / 84; Pulse 79; Resp 16; Temp 97.6(TE); Pulse Ox 100% on R/A; Weight 79.83 kg; tl4 Height 4 ft. 11 in. ; Pain 6/10; 20:48 BP 113 / 76; Pulse 78; Resp 18; Pulse Ox 100% on R/A; mb9 19:06 Body Mass Index 35.55 (79.83 kg, 149.86 cm) tl4 19:06 Pain Scale: Adult tl4 ED Course: 18:56 Patient arrived in ED. im 19:08 Vickey Rosales MD is Attending Physician. rt 19:10 Triage completed. tl4 19:12 Arm band placed on right wrist. tl4 19:17 Luzmaria Crabtree, MEENU is Primary Nurse. mb9 19:17 Placed in gown. Bed in low position. Call light in reach. Side rails up X 1. Provided mb9 Education on: press call light if needing anything. Client placed on continuous cardiac and pulse oximetry monitoring. NIBP monitoring applied. residential monitor on. 19:26 EKG done, by ED staff, reviewed by Vickey Rosales MD. tl4 19:32 Initial lab(s) drawn, by me, sent to lab. Inserted saline lock: 20 gauge in left mb9 antecubital area, using aseptic technique. Blood collected. Flushed with 10 mL NS. 19:34 No provider procedures requiring assistance completed. mb9 19:47 XRAY Chest (1 view) In Process Unspecified. EDMS 21:03 IV discontinued, intact, bleeding controlled, No redness/swelling at site. Pressure mb9 dressing applied. Administered Medications: 19:28 Drug: metoCLOPramide IVP 10 mg IVP once; over 1 to 2 minutes Route: IVP; Site: left mb9 antecubital; 20:28 Follow up: Response: No adverse reaction mb9 19:30 Drug: Ketorolac IVP 15 mg IVP once Route: IVP; Site: left antecubital; mb9 20:28 Follow up: Response: No adverse reaction mb9 19:32 Drug: diphenhydrAMINE IVP 25 mg IVP once Route: IVP; Site: left antecubital; mb9 20:28 Follow up: Response: No adverse reaction mb9 19:32 Drug: NS 0.9% IV 1000 ml IV at 1 bolus Per protocol; 1000 mL bolus Route: IV; Rate: 1 mb9 bolus; Site: left antecubital; 20:28 Follow up: Response: No adverse reaction; IV Status: Completed infusion mb9 Medication: 19:18 VIS not applicable for this client. mb9 Outcome: 20:58 Discharge ordered by . rt 21:03 Discharged to home ambulatory, mb9 21:03 Condition: stable 21:03 Discharge instructions given to patient, Instructed on discharge instructions, follow up and referral plans. Demonstrated understanding of instructions, follow-up care, 21:04 Patient left the ED. mb9 Signatures: Dispatcher [employer] Luzmaria Grey, RN RN mb9 Vickey Rosales MD MD rt Soo Chavarria Toni RN RN tl4
--- NOTE | 2024-02-17 16:30 | EKG ---
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
[2024-02-20 14:51] VITALS: BP 113/76; TEMP 97.6; O2SAT 100
== END 2024-02-16 21:04 | disposition home or self-care (01) ==
LOC: ER 18:52
DX: R07.9 Chest pain, unspecified (principal); R51.9 Headache, unspecified; Z88.0 Allergy status to penicillin
CPT/HCPCS: 36415; 71045; 80048; 80076; 83735; 83880; 84484; 85025; 93005; 96361; 96374; 96375; 99285; J1200; J2765; J7030